=== PATIENT | female | born 1995 | race Caucasian/White ===

== ENCOUNTER 2024-10-15 17:28 | Inpatient (IN) | payer MEDICAID, SELFPAY ==
[2024-10-15 18:29] VITALS: BP 105/64; PULSE 114; RESP 16; TEMP 37; O2SAT 95; BMI 22.6
[2024-10-15 18:42] LABS: Basophils # (Auto) 0.1 Thou/mm3 (0.0-0.2); Basophils % (Auto) 0 % (0-2.5); Eosinophils % (Auto) 0 % (0-10); Hematocrit 40.3 % (36.0-46.0); Hemoglobin 13.3 g/dL (12.0-16.0); Immature Granulocytes % (Auto) 1 % (0-0); Lymphocytes # (Auto) 1.4 Thou/mm3 (1.0-4.8); Lymphocytes % (Auto) 5 % (10-50); Mean Corpuscular Hemoglobin 28.2 pg (25.0-35.0); Mean Corpuscular Volume 85 fL (80-100); Monocytes # (Auto) 0.9 Thou/mm3 (0.0-0.8); Monocytes % (Auto) 3 % (0-12); Neutrophils % (Auto) 91 % (37-80); Nucleated Red Blood Cell % 0 /100 WBC (0); Platelet Count 334 Thou/mm3 (140-440); Red Blood Count 4.72 Miln/mm3 (4.00-5.20); White Blood Count 29.8 Thou/mm3 (3.6-11.0)
--- NOTE | 2024-10-15 18:43 | PD.EDRME ---
Rapid Medical Screening Exam RME Arrival date/time: 10/15/24 17:28 Chief Complaint: Recheck/Abnormal Lab/Rx Time Seen by Provider: 10/15/24 18:44 Vital signs: Vital Signs Temperature 98.6 F 10/15/24 18:29 Pulse Rate 114 H 10/15/24 18:29 Respiratory Rate 16 10/15/24 18:29 Blood Pressure 105/64 10/15/24 18:29 Pulse Oximetry (%) 95 10/15/24 18:29 Oxygen Delivery Method Room Air 10/15/24 18:29 RME Narrative: 28-year-old female with history of diabetes coming in with feeling generally weak. The patient thinks her fingerstick is elevated. Heart rate is 114. The patient is able to ambulate and otherwise has no focal weakness. Labs are sent and an additional ER provider will evaluate this patient. At this time there is no bed to put her directly in the bed.
[2024-10-15 18:49] LABS: Beta Hydroxybutyrate > 6.4 mmol/L (<0.6)
[2024-10-15 19:13] LABS: Alanine Aminotransferase 85 U/L (10-49); Albumin, Serum 4.9 gm/dL (3.5-5.0); Albumin/Globulin Ratio 1.8 (1.2-2.2); Alkaline Phosphatase 238 U/L (46-116); Anion Gap 26 (7-16); Aspartate Amino Transferase 65 U/L (0-34); BUN/Creatinine Ratio 22 Ratio (12-20); Bilirubin,Total 1.4 mg/dL (0.3-1.2); Blood Urea Nitrogen 24 mg/dL (9-23); Calcium 9.9 mg/dL (8.3-10.6); Calcium (Corrected) 9.9 mg/dL (8.5-10.1); Carbon Dioxide 18.4 mMol/L (20.0-31.0); Chloride 91 mMol/L (98-107); Creatinine (Component) 1.1 mg/dL (0.6-1.3); Estimated Creatinine Clearance 71.9 mL/min (>60); Globulin 2.8 gm/dL (2.3-3.5); Osmolality,Calculated 301 (275-295); Potassium 3.8 mMol/L (3.4-5.1); Sodium 135 mMol/L (136-145); Total Protein 7.7 gm/dL (5.7-8.2); eGFR > 60 See Note
[2024-10-15 19:14] LABS: Glucose 584 mg/dL (74-106)
[2024-10-15 19:27] LABS: Base Excess, Venous -6 (-3-3); O2 Saturation, Venous 91 % (96-97); PCO2, Venous 31 mmHg (36-56); PO2, Venous 61 mmHg (15-58); pH, Venous 7.38 (7.33-7.66)
[2024-10-15 20:22] LABS: Collection Type, Urine Clean Catch; RBC,Urine 0 /hpf (0-3); WBC,Urine 0 /hpf (0-5)
[2024-10-15 20:40] LABS: Bilirubin,Urine Negative (Negative); Blood,Urine Negative (Negative); Clarity,Urine Clear (Clear/Hazy); Color,Urine Lt-Yellow (Lt Yel-Yel); Glucose, Urine 4+ (Negative); Ketones,Urine 4+ (Negative); Leukocyte Esterase,Urine Negative (Negative); Nitrite,Urine Negative (Negative); PH,Urine 5.5 (5.0-7.0); Protein,Urine Negative (Neg - Trace); Specific Gravity,Urine 1.027 (1.001-1.035); Squamous Epithelial Cell,Urine 2 /hpf (0-5); Urobilinogen,Urine Negative mg/dL (0.0-1.0)
[2024-10-15 22:34] VITALS: BP 136/105; PULSE 113; RESP 19; O2SAT 99
--- NOTE | 2024-10-15 22:39 | EDNOTE_ITS ---
ED General RME/HPI General Chief complaint: Abdominal Pain Stated complaint: I THINK I'M DKA ; VOMITING X YESTERDAY; ABD PAIN Time Seen by Provider: 10/15/24 18:44 Source: patient and family Arrival date/time: 10/15/24 17:28 Mode of arrival: ambulatory Limitations: no limitations RME / HPI RME / HPI narrative: DR. GAYTAN MAIN ED EVALUATION: 28-year-old female with history of type 1 diabetes on insulin who presents to ED via private auto coming in with feeling generally weak. The patient thinks her fingerstick is elevated. Patient reports that she has been out of her insulin for 1 week because she cannot get it filled at the pharmacy. She normally takes get it picked up and she has been on it for 2 days however she has been trouble controlling her blood sugars. She states her blood sugars are very high . The patient started having dry heaving and nausea today. Vomiting is associated with abdominal cramping. The patient denies fevers or diarrhea. Related Data Previous Rx's ?Medication ?Instructions ?Recorded metoclopramide HCl 10 mg tablet 10 mg PO Q6H PRN nausea and 05/26/23 (Reglan) vomiting #10 tabs lancets-blood glucose test #1 ea 09/23/23 strips-pen needles with gauze kit pantoprazole 40 mg tablet,delayed 40 mg PO QDAY PRN gastric reflux 09/23/23 release #30 tabs metoclopramide HCl 10 mg tablet 10 mg PO Q6H PRN nausea and 09/24/23 (Reglan) vomiting #14 tabs pantoprazole 40 mg tablet,delayed 40 mg PO QDAY #14 tabs 09/24/23 release (Protonix) insulin glargine 100 unit/mL (3 20 unit (0.2 mL) subcut QAM 30 10/18/23 mL) subcutaneous pen (Lantus days #6 mL Solostar U-100 Insulin) Allergies Allergy/AdvReac Type Severity Reaction Status Date / Time No Known Allergies Allergy Verified 10/15/24 17:30 Review of Systems Review of Systems Systems Reviewed: All systems reviewed, normal except as documented Constitutional Comments: Elevated blood sugars Gastrointestinal Comments: Nausea Dry heaving Vomiting Musculoskeletal Comments: Generalized body aches Endocrine Comments: Elevated blood sugar Past Medical History Past Medical History NEUROLOGIC: Negative Neurological Disorders CARDIAC: Negative Cardiac Disorders, Myocardial Infarction, Cardiac Arrhythmia, Atrial Fibrillation, Angina, Heart Murmur, Coronary Artery Disease, Atherosclerotic Heart Disease, Peripheral Vascular Disease, Hypercholesterolemia, Aneurysm, Congestive Heart Failure, Congenital Heart Disease, Valvular Heart Disease, Rheumatic Fever, Cardiomyopathy, Edema, Pericarditis, Cellulitis, Deep Vein Thrombosis, Hypertension, Hypotension or Varicose Veins RESPIRATORY: Negative Chronic Obstructive Pulmonary Disease (COPD) GASTROINTESTINAL: Positive Pancreatitis; Negative Gastrointestinal Disorders GENITOURINARY: Negative Genitourinary Disorders or Renal Disease REPRODUCTIVE: Positive Previous Pregnancies; Negative Endometriosis, Genital Herpes, Gonorrhea, Pelvic Inflammatory Disease, Syphilis or Uterine Prolapse MUSCULOSKELETAL: Negative Musculoskeletal Disorders ENT: Negative Cataracts, Glaucoma, Blind, Retinal Detachment, Macular Degeneration, Ear Infection, Deafness or Eye Prosthesis ENDOCRINE: Positive Endocrine Disorders and Diabetes Mellitus Type 1; Negative Diabetes Mellitus Type 2, Hypoglycemia, Creighton's Syndrome, Carson's Disease, Hyperthyroidism, Hypothyroidism, Parathyroid Disease, Pituitary Disease, Systemic Lupus Erythematosus, Syndrome of Inappropriate Antidiuretic Hormone (SIADH), Adrenal Disease or Graves' Disease HEMATOLOGIC: Negative Blood Disorders PSYCHO/SOCIAL: Positive Anxiety OTHER HISTORY: Negative Autoimmune Disease, Blood Transfusions, Blood Transfusion Reaction or Anesthesia Reactions Family History FAMILY HISTORY: Negative Family Neurologic Problems, Family Psychiatric Problems, Family Respiratory Disorders, Family Cardiac Disorders, Family Gastrointestinal Problems, Family Cancer, Family Surgery or Family Anesthesia Reaction Surgical History SURGICAL: Positive Section; Negative Pacemaker Social History SMOKING STATUS: Light (< 1 pack/day) SECOND HAND EXPOSURE: No SUBSTANCE USE: marijuana ED Exam Narrative Physical exam: Patient looks uncomfortable, dehydrated. She is standing, following all commands. Eye sockets are sunken in. No Robles's sign. General Limitations: Present no limitations General appearance: Present alert and in no apparent distress Head Head exam: Present atraumatic, normocephalic and normal inspection Eye Eye exam: Present normal appearance, PERRL and EOMI ENT ENT exam: Present normal exam, normal oropharynx, mucous membranes dry, TM's normal bilaterally and normal external ear exam Neck Neck exam: Present normal inspection and full ROM Chest Chest inspection: Present normal inspection and symmetric chest wall rise Respiratory Respiratory exam: Present normal lung sounds bilaterally Cardiovascular Cardiovascular exam: Present regular rate, normal rhythm and normal heart sounds Abdominal Exam Abdominal exam: Present normal bowel sounds Extremities Exam Extremities exam: Present normal inspection and full ROM Back Exam Back exam: Present normal inspection and full ROM Neurological Exam Neurological exam: Present alert, oriented X3 and CN II-XII intact Psychiatric Psychiatric exam: Present normal affect and normal mood; Absent depressed Skin Skin exam: Present warm, dry, intact and normal color Course Quality Measures none Orders Category Date Time Status CT Screening NOW Care 10/15/24 23:[address] abdomen pelvis w con Stat Exams 10/15/24 23:16 Taken Basic Metabolic Panel Stat Lab 10/16/24 02:24 Ordered Beta Hydroxybutyrate Stat Lab 10/15/24 18:14 Completed CBC Stat Lab 10/15/24 18:14 Completed Comprehensive Metabolic Panel Stat Lab 10/15/24 18:14 Completed Magnesium Stat Lab 10/16/24 02:24 Ordered Phosphorous Stat Lab 10/16/24 02:24 Ordered Urinalysis Stat Lab 10/15/24 20:05 Completed Urine Culture Stat Lab 10/15/24 17:53 Received VBG [Venous Blood Gas] Stat Lab 10/15/24 19:11 Completed Insulin Reg 100 Units/100 ml [Myxredlin] Med 10/16/24 00:55 Active 100 unit in 100 ml IV 0.1 unit/kg/hr Ondansetron Inj [Zofran Inj] Med 10/15/24 22:41 Discontinued 4 mg IV X1 ONE Sodium Chloride 0.9% 1000 ml [Ns] 1,000 ml Med 10/15/24 22:42 Discontinued IV 999 mls/hr Sodium Chloride 0.9% 1000 ml [Ns] 1,000 ml Med 10/15/24 23:22 Discontinued IV 999 mls/hr Sodium Chloride 0.9% 500 ml [Ns] 500 ml Med 10/16/24 00:55 Discontinued IV 999 mls/hr Vital Signs Vital signs: Vital Signs Temperature 98.6 F 10/15/24 18:29 Pulse Rate 114 H 10/15/24 18:29 Respiratory Rate 16 10/15/24 18:29 Blood Pressure 105/64 10/15/24 18:29 Pulse Oximetry (%) 95 10/15/24 18:29 Oxygen Delivery Method Room Air 10/15/24 18:29 [facility] Patient data External records reviewed:: [facility] previous records Clinical information provided by:: patient Social determinants that could affect healthcare access:: none Patient has the following chronic illnesses:: IDDM1 How is presenting disease/condition affected by chronic disease/condition?: e xacerbated by Evaluation data The following diagnostics were reviewed and interpreted by me:: lab results and radiology exam(s) Lab and/or radiology exams considered but not ordered:: None Interpretation Summary: I personally reviewed the radiology data and agree with the radiologist's interpretation. CT scan of the abdomen and pelvis with intravenous contrast (axial sections with sagittal and coronal reformats) October 16, 2024 0016 hours. 3D reconstructed images were also provided. Clinical History: DKA, white count 29,000 Comparison: Compared with the prior CT AP study dated June 12, 2020. Findings: Mild hepatomegaly with mild fatty infiltration of the liver is noted. The left kidney is malrotated. No hydroureteronephrosis. The gallbladder, pancreas, spleen, adrenals and right kidney are unremarkable. The small bowel loops are underdistended. The cecum is low-lying in the pelvis. The appendix is within normal limits to the extent visualized (coronal images 47-48/128, series 4). There is thickening versus underdistention of the colon. No evidence of bowel obstruction. No evidence of abdominal aortic aneurysm. No significant mesenteric or retroperitoneal lymphadenopathy. The urinary bladder is mildly distended. The uterus is unremarkable. Follicles are seen in the ovaries bilaterally. There is no free fluid, free air or abscess. The osseous structures are unremarkable. The lung bases are clear. There is mild wall thickening of the distal esophagus/gastroesophageal junction; possibility of reflux esophagitis cannot be excluded. Please note that evaluation of bowel loops is limited due to absence of oral contrast. Impression: 1. Thickening versus underdistention of the colon; possibility of mild colitis cannot be excluded. 2. No evidence of intraabdominal fluid collection or abscess. 3. Mild wall thickening of the distal esophagus/gastroesophageal junction; possibility of reflux esophagitis cannot be excluded. 4. Other findings as described above. Suggest clinical correlation and follow up accordingly. Report Electronically Signed By: Charlie Sanchez 10/16/2024 1:08:35 AM [EST] Medications Medications considered but not ordered:: None Medication administrations:: Medication Administration History Insulin Human Regular (Myxredlin) 100 unit in 100 mls @ 6.35 mls/hr IV .[id number] PRN; Protocol PRN Reason: PER PROTOCOL Stop: 11/15/24 00:54 Discontinued Medications Sodium Chloride (Ns) 1,000 mls @ 999 mls/hr IV .Q1H1M ONE Stop: 10/15/24 23:42 Last Infusion: 10/16/24 00:05 Dose: Infused Documented By: Admin: 10/15/24 23:21 Dose: 2,000 mls/hr Documented By: Infusion: 10/15/24 23:21 Dose: Infused Documented By: Admin: 10/15/24 22:49 Dose: 999 mls/hr Documented By: TC Sodium Chloride (Ns) 1,000 mls @ 999 mls/hr IV .Q1H1M ONE Stop: 10/16/24 00:22 Last Admin: 10/16/24 00:05 Dose: Not Given Documented By: TC Non-Admin Reason: Duplicate Medication on eMAR Sodium Chloride (Ns) 500 mls @ 999 mls/hr IV .Q31M ONE Stop: 10/16/24 01:25 Last Infusion: 10/16/24 02:17 Dose: Infused Documented By: Admin: 10/16/24 01:49 Dose: 999 mls/hr Documented By: TC Ondansetron HCl (Ondansetron Inj 2 Mg/Ml Inj 2 Ml) 4 mg IV X1 ONE; Protocol Stop: 10/15/24 22:42 Last Admin: 10/15/24 22:49 Dose: 4 mg Documented By: TC As above Consultations Consultation(s) initiated? (list below): Yes Consultation #1 (Physician, Specialty, Details): Hospitalist Resident ICU made aware of the patient?s HPI, PMHx, lab and/or radiology results. Treatment plan was discussed. Will admit for further evaluation and management. Accepts patient for admission. Time: 02:37 Diagnosis Differential Diagnosis ED Complaint MDM: See MDM Most likely diagnosis given after review of the tests above:: DM type 1 (diabetes mellitus, type 1), Diabetic ketosis, Tachycardia Admission Indicated Admission indicated?: indicated Admission Request Was there a request for admission?: Yes Admission Attestation Admission request attestation: Discussed case with [] from Hospitalist service regarding admission. Discussed patients ED course, exam findings, labs, and radiology results. The Hospitalist [agrees,declines] to accept the patient for admission. Disposition Plan Disposition Plan: Admit Medical Decision Making MDM Narrative MDM Narrative: Differential diagnoses include DKA, non-compliance, hyperglycemia, leukocytosis from the vomiting, COVID, electrolyte abnormalities, dehydration ? Scribe Attestation: I, Jordan Medina, am scribing for and in the presence of Dr. Cash. Provider Notation: Although this document has been carefully reviewed, there may still be some phonetic and other typographical errors. These errors are purely grammatical due to imperfections in the software program and should not be construed in any way to compromise the substance of the patient's medical care during this visit. Differential Diagnosis Differential Diagnosis: See [facility] Medical Records Medical records reviewed: Yes I reviewed the patient's medical records. Lab Data Lab results reviewed: Yes I reviewed the patient's lab results. 10/15/24 18:14 10/15/24 18:14 Labs: Lab Results 10/15/24 10/15/24 10/15/24 Range/Units 18:14 19:11 20:05 WBC 29.8 H (3.6-11.0) Thou/mm3 RBC 4.72 (4.00-5.20) Miln/mm3 Hgb 13.3 (12.0-16.0) g/dL Hct 40.3 (36.0-46.0) % MCV 85 (80-100) fL MCH 28.2 (25.0-35.0) pg MCHC 33.0 (31.0-37.0) g/dl RDW Std Deviation 41.0 (36.4-46.3) fL Plt Count 334 (140-440) Thou/mm3 Neut % (Auto) 91 H (37-80) % Lymph % (Auto) 5 L (10-50) % [place] % (Auto) 3 (0-12) % Eos % (Auto) 0 (0-10) % Baso % (Auto) 0 (0-2.5) % Neut # (Auto) 27.0 H (1.8-7.7) Thou/mm3 Lymph # (Auto) 1.4 (1.0-4.8) Thou/mm3 [place] # (Auto) 0.9 H (0.0-0.8) Thou/mm3 Eos # (Auto) 0.0 (0.0-0.5) Thou/mm3 Baso # (Auto) 0.1 (0.0-0.2) Thou/mm3 Immature Gran # (Auto) 0.30 H (0.00-0.00) Thou/mm3 Absolute Nucleated RBC 0.00 (0.00-0.00) Thou/mm3 Immature Gran % 1 H (0-0) % Nucleated RBC % 0 (0) /100 WBC VBG pH 7.38 (7.33-7.66) VBG pCO2 31 L (36-56) mmHg VBG pO2 61 H (15-58) mmHg VBG O2 Sat ([place]) 91 L (96-97) % VBG Base Excess -6 L (-3-3) Sodium 135 L (136-145) mMol/L Potassium 3.8 (3.4-5.1) mMol/L Chloride 91 L (98-107) mMol/L Carbon Dioxide 18.4 L (20.0-31.0) mMol/L Anion Gap 26 H (7-16) BUN 24 H (9-23) mg/dL Creatinine 1.1 (0.6-1.3) mg/dL Estim Creat Clear Calc 71.9 (>60) mL/min eGFR > 60 (60 - ) See Note BUN/Creatinine Ratio 22 H (12-20) Ratio Glucose 584 H* (74-106) mg/dL Calculated Osmolality 301 H (275-295) Calcium 9.9 (8.3-10.6) mg/dL Corrected Calcium 9.9 (8.5-10.1) mg/dL Total Bilirubin 1.4 H (0.3-1.2) mg/dL AST 65 H (0-34) U/L ALT 85 H (10-49) U/L Alkaline Phosphatase 238 H (46-116) U/L Total Protein 7.7 (5.7-8.2) gm/dL Albumin 4.9 (3.5-5.0) gm/dL Globulin 2.8 (2.3-3.5) gm/dL Albumin/Globulin Ratio 1.8 (1.2-2.2) Beta-Hydroxybutyrate/Acetoacetate > 6.4 H (<0.6) mmol/L Ur Collection Type Clean Catch Urine Color Lt-Yellow (Lt Yel-Yel) Urine Clarity Clear (Clear/Hazy) Urine pH 5.5 (5.0-7.0) Ur Specific [place] 1.027 (1.001-1.035) Urine Protein Negative (Neg - Trace) Urine Glucose (UA) 4+ A (Negative) Urine Ketones 4+ A (Negative) Urine Blood Negative (Negative) Urine Nitrite Negative (Negative) Urine Bilirubin Negative (Negative) Urine Urobilinogen (Auto) Negative (0.0-1.0) mg/dL Ur Leukocyte Esterase Negative (Negative) Urine RBC 0 (0-3) /hpf Urine WBC 0 (0-5) /hpf Ur Squamous Epith Cells 2 (0-5) /hpf Urine Bacteria None (None) Radiology Data Radiology results reviewed: Yes I reviewed the patient's radiology results. Critical Care Time Critical Care Time Critical Care Time: Yes Total Critical Care Time (min.): 60 Attestation: The high probability of sudden, clinically significant deterioration in the patient?s condition required the highest level of my preparedness to intervene urgently. The services I provided to this patient were to treat and/or prevent clinically significant deterioration. Services included the following: chart data review, reviewing nursing notes and/or old charts, documentation time, outreach consultant collaboration regarding findings and treatment options, medication orders and management, direct patient care, vital sign assessments and ordering, interpreting and reviewing diagnostic studies and lab tests. Aggregate critical care time includes only time during which I was engaged in work directly related to the patient?s care, as described above, whether at bedside or elsewhere in the Emergency Department. It did not include time spent performing other reported procedures or the services of residents, students, nurses or physician assistants. Discharge Plan Plan Patient Disposition: Admit Acute Care w/in Hospital Patient condition on transfer: Stable Prescriptions/Referrals Prescriptions/Med Rec: No Action (DME) lancet-gluc yielp-nbbkrb-ycfkr Kit See Rx Instructions .Route Qty: 1 1RF Rx Instructions: As directed pantoprazole 40 mg tablet,delayed release (DR/EC) 40 mg PO QDAY PRN (Reason: gastric reflux) Qty: 30 0RF metoclopramide HCl [Reglan] 10 mg tablet 10 mg PO Q6H PRN (Reason: nausea and vomiting) Qty: 14 0RF pantoprazole [Protonix] 40 mg tablet,delayed release (DR/EC) 40 mg PO QDAY Qty: 14 0RF insulin glargine [Lantus Solostar U-100 Insulin] 100 unit/mL (3 mL) insulin pen 20 unit subcut QAM 30 Days Qty: 6 1RF metoclopramide HCl [Reglan] 10 mg tablet 10 mg PO Q6H PRN (Reason: nausea and vomiting) Qty: 10 0RF Referrals: Chance Godinez PA-C [Primary Care Provider] - In 1 week Problem List Clinical Impression: DM type 1 (diabetes mellitus, type 1), Diabetic ketosis, Tachycardia Patient/Caregiver Discharge Instructions Print Language: Hebrew Stand Alone Forms: [facility] Award Info., Patient Portal Info Letter
[2024-10-15] MEDS: SODIUM CHLORIDE 0.9% 1000 ML 1,000 ML 999 ML IV (22:49)
[2024-10-15] MEDS: ONDANSETRON INJ 2 MG/ML INJ 2 ML 4 MG IV (22:49)
[2024-10-15 23:15] VITALS: BP 114/64; PULSE 105; RESP 18; O2SAT 97
--- NOTE | 2024-10-15 23:16 | XR_ITS ---
Examination: CT abdomen with intravenous contrast CT pelvis with intravenous contrast 2-D coronal reconstructions 2-D sagittal reconstructions Date and time of exam:October 16, 2024 0016 hrs. Comparison 06/12/2020 Indications: Onset vomiting abdominal pain beginning yesterday, with leukocytosis. CTDI: vol (mGy) 5.82 DLP: (mGycm) 296 Technique: Multiple axial sections of the abdomen and pelvis have been obtained. 64 slice high-resolution scanner used. 3 mm axial sections have been obtained, post intravenous injection 60 cc [id number] 2-D sagittal, coronal reconstructions obtained. Low dose protocols were performed. One or more of the following dose reduction techniques were used; automated exposure control, adjustment of the mA and/or KV according to patient size, use of iterative reconstruction technique. Findings: Minor wall thickening of the distal esophagus Diffuse fatty infiltration throughout the liver no focal liver or splenic lesions Contracted gallbladder No pancreatic mass No renal or ureteral calculi, no hydronephrosis Aorta normal size Normal appendix No bowel obstruction No pelvic mass Distended urinary bladder Impression: Consider reflux esophagitis No acute process in the abdomen or pelvis
[2024-10-15] MEDS: SODIUM CHLORIDE 0.9% 1000 ML 1,000 ML 2000 ML IV (23:21)
[2024-10-15 23:30] VITALS: BP 113/65; PULSE 107; RESP 19; O2SAT 96
[2024-10-15 23:45] VITALS: BP 111/59; PULSE 108; RESP 18; O2SAT 97
[2024-10-16] VITALS (65 sets, daily range): BP systolic 87–153; BP diastolic 47–101; PULSE 92–135; RESP 14–40; TEMP 36.3–38; O2SAT 92–100; BMI 20.7
--- NOTE | 2024-10-16 01:09 | PRELIM_ITS ---
CT scan of the abdomen and pelvis with intravenous contrast (axial sections with sagittal and coronal reformats) October 16, 2024 0016 hours. 3D reconstructed images were also provided. Clinical History : DKA, white count 29,000Comparison: Compared with the prior CT AP study dated June 12, 2020.Find ings:Mild hepatomegaly with mild fatty infiltration of the liver is noted. The left kidney is malrota thierry. No hydroureteronephrosis. The gallbladder, pancreas, spleen, adrenals and right kidney are unrem arkable.The small bowel loops are underdistended. The cecum is low-lying in the pelvis. The appendix is within normal limits to the extent visualized (coronal images 47-48/128, series 4). There is thick ening versus underdistention of the colon. No evidence of bowel obstruction. No evidence of abdominal aortic aneurysm. No significant mesenteric or retroperitoneal lymphadenopathy. The urinary bladder i s mildly distended. The uterus is unremarkable. Follicles are seen in the ovaries bilaterally. There is no free fluid, free air or abscess. The osseous structures are unremarkable. The lung bases are c lear. There is mild wall thickening of the distal esophagus/gastroesophageal junction; possibility of reflux esophagitis cannot be excluded.Please note that evaluation of bowel loops is limited due to a bsence of oral contrast. Impression:1. Thickening versus underdistention of the colon; possibility of mild colitis cannot be excluded. 2. No evidence of intraabdominal fluid collection or abscess. 3. Mi ld wall thickening of the distal esophagus/gastroesophageal junction; possibility of reflux esophagit is cannot be excluded. 4. Other findings as described above. Suggest clinical correlation and follow up accordingly. Report Electronically Signed By: Charlie Sanchez 10/16/2024 1:08:35 AM [EST]
[2024-10-16] MEDS: SODIUM CHLORIDE 0.9% 500 ML 500 ML 999 ML IV (01:49)
--- NOTE | 2024-10-16 02:52 | EKG_ITS ---
[facility] Test Date: 2024-10-16 Pat Name: CLARENCE WILKES Department: Room: - Gender: Female [employer] Development: : 1995 Requested By: Lorenzo Marr Order Number: [id number] Reading MD: Lorenzo Marr Measurements Intervals [place] Rate: 106 P: 107 CO: 124 QRS: 107 QRSD: 85 T: 134 QT: 367 QTc: 489 Interpretive Statements SINUS TACHYCARDIA ARM LEADS REVERSED [INVERTED P AND QRS IN I] ABNORMAL RHYTHM ECG Compared to ECG 09/20/2023 23:12:47 Sinus rhythm no longer present Short CO interval no longer present /store/S0/[id number].pdf
[2024-10-16] MEDS: PANTOPRAZOLE INJ 40 MG VIAL IV ×3 (03:05→20:22)
--- NOTE | 2024-10-16 03:06 | PC.RT ---
automation technician made aware of EKG ordered.
--- NOTE | 2024-10-16 03:07 | ESHP_ITS ---
Documentation for date of: 10/16/24 HPI History of Present Illness Chief complaint: DKA History of present illness: Ms. Dawson Daniels is a 28-year-old lady with a past medical history of type 1 diabetes with multiple admissions to the ICU for DKA who presented to the ED for a 1 week history of vomiting and feeling nauseated. Patient reports that approximately 1 week prior to admission she had ran out of her inuslin. and began to experience progressively worsening symptoms of nausea, non-bloody vomiting and abdominal pain. She also reported associated symptoms of chills and decreased PO intake. Due to her symptoms worsening, the patient presented to the ED on 10/16/2024 ED course: In the ED, patient was found to be in DKA with elevated glucose of and beta hydroxybutyric acid >6.4, bicarb was < 10. CBC revealed significant leukocytosis of 29.8. ABG ABG 7.38/pCO2 31/HCO3 10 consistent with anion gap metabolic acidosis in the setting of diabetic ketoacidosis. Urinalysis 4+ ketones and 4+ glucose. Chest x-ray was negative. CT C/A/P was read as thickening versus underdistention of the colon; possibility of mild colitis cannot be excluded. No evidence of intraabdominal fluid collection or abscess. Mild wall thickening of the distal esophagus/gastoesophageal junction suspicious for reflux esophagitis. Patient was admitted to the ICU for treatment and management of diabetic ketoacidosis requiring insulin gtt. Review of Systems Review of Systems Systems Reviewed: All systems reviewed, normal except as documented Past Medical History Past Medical History Comments PMH COMMENT: PMHx: , IDDM1 (Sep 2023 A1c 10.3) on Dexcom CGM & recurrent hospitalizations for DKA, ?pancreatitis, fatty liver PSHx: C-sections FHx: Non-contributory Social: Lives with family/children. Tobacco/cannabis smoking. Medically nonadherent Exam Vital Signs Temp Pulse Resp BP Pulse Ox O2 Del Method 98.6 F 119 H 26 H 116/63 97 Room Air 10/15/24 18:29 10/16/24 03:06 10/16/24 02:45 10/16/24 02:45 10/16/24 02:45 10/15/24 22:34 Narrative Exam General: Not in any visible or apparent acute distress, sick and weak appearing, alert but somnolent HEENT: NC/AT, PERRL, EOMI, good conjugate gaze, moist mucous membranes, oropharynx clear, trachea appears midline, no gross LAD Neck: Supple, No masses, No JVD, normal range of motion CVS: S1S2 Regular rate and rhythm, No murmurs, rubs or gallops Lungs: Normal respiratory effort, no wheezing rhonchi or rales, CTAB Abd: Soft, non-distended, diffuse pain to palpation Ext: No edema, warm well perfused Skin: Intact, no rashes, no lesions, no erythema Neuro: AOx3, no gross focal neurological deficits Results: Labs 10/18/24 06:15 10/18/24 06:15 Labs: Short CBC 10/15/24 Range/Units 18:14 WBC 29.8 H (3.6-11.0) Thou/mm3 Hgb 13.3 (12.0-16.0) g/dL Hct 40.3 (36.0-46.0) % Plt Count 334 (140-440) Thou/mm3 BMP 10/15/24 18:14 Sodium 135 L Potassium 3.8 Chloride 91 L Carbon Dioxide 18.4 L BUN 24 H Creatinine 1.1 Glucose 584 H* Calcium 9.9 Liver Function 10/15/24 Range/Units 18:14 Total Bilirubin 1.4 H (0.3-1.2) mg/dL AST 65 H (0-34) U/L ALT 85 H (10-49) U/L Alkaline Phosphatase 238 H (46-116) U/L Albumin 4.9 (3.5-5.0) gm/dL Urine 10/15/24 Range/Units 20:05 Urine Color Lt-Yellow (Lt Yel-Yel) Urine Clarity Clear (Clear/Hazy) Urine pH 5.5 (5.0-7.0) Ur Specific [place] 1.027 (1.001-1.035) Urine Protein Negative (Neg - Trace) Urine Glucose (UA) 4+ A (Negative) ABG Interpretation ABG results: 10/15/24 19:11 VBG pH 7.38 VBG pCO2 31 L VBG pO2 61 H VBG Base Excess -6 L Quality Measures Quality Measures none Medications Home Medications and Allergies Allergies Allergy/AdvReac Type Severity Reaction Status Date / Time No Known Allergies Allergy Verified 10/15/24 17:30 Visit Medications Acetaminophen (Acetaminophen 325 Mg Tablet) 1,000 mg PO Q6H PRN PRN Reason: Fever >101.5 Stop: 11/15/24 02:56 Acetaminophen (Acetaminophen 325 Mg Tablet) 1,000 mg PO Q6H PRN PRN Reason: PAIN SCALE 1-3 (mild Stop: 11/15/24 02:56 Dextrose (Dextrose 50%-Water Inj 50 Ml Syringe) 25 ml IV [id number] PRN PRN Reason: Blood Sugar - Low Enoxaparin Sodium (Enoxaparin Sod Inj 40 Mg/0.4 Ml Syringe) 40 mg SC QDAY SULTANA Stop: 10/30/24 08:59 Potassium Chloride (Kcl Ivpb) 10 meq in 100 mls @ 100 mls/hr IV .Q1H PRN PRN Reason: IF POTASSIUM LESS THAN 3.3 Stop: 11/15/24 02:51 Magnesium Sulfate (Magnesium Sulfate Ivpb) 2 gm in 50 mls @ 25 mls/hr IV .Q2H PRN PRN Reason: PER DKA PROTOCOL Stop: 11/15/24 02:51 Insulin Human Regular 100 unit (/ IV Miscellaneous Supplies) 100 mls @ 6.35 mls/hr IV .[id number] PRN; Protocol PRN Reason: PER PROTOCOL Stop: 11/15/24 02:51 Dextrose/Lactated Ringer's (D5-Lr) 1,000 mls @ 250 mls/hr IV .Q4H PRN PRN Reason: PER PROTOCOL Stop: 11/15/24 02:51 Lactated Ringer's (Lactated Ringers) 1,000 mls @ 250 mls/hr IV .Q4H PRN PRN Reason: PER PROTOCOL Stop: 10/17/24 02:51 Potassium Chloride 20 meq/ (Lactated Ringer's) 1,010 mls @ 250 mls/hr IV .Q4H3M PRN PRN Reason: K LEVEL 3.3 TO 5.3mM/L Stop: 11/15/24 02:51 Potassium Chloride 40 meq/ (Lactated Ringer's) 1,020 mls @ 250 mls/hr IV .Q4H5M PRN PRN Reason: K LEVEL < 3.3 mM/L Stop: 11/15/24 02:51 Potassium Chloride 40 meq/ (Dextrose/Lactated Ringer's) 1,020 mls @ 250 mls/hr IV .Q4H5M PRN PRN Reason: K LEVEL < 3.3mM/L Stop: 11/15/24 02:51 Potassium Cl/Dextrose/Lact Ringer's (Kcl 20 Meq/L In D5-Lr) 20 meq in 1,000 mls @ 250 mls/hr IV .Q4H PRN PRN Reason: K LEVEL 3.3 TO 5.3 mM/L Stop: 11/15/24 02:51 Potassium Chloride (Kcl Ivpb) 10 meq in 100 mls @ 50 mls/hr IV PRN PRN PRN Reason: K LEVEL 3.3 to 5.3 & BG > 200 Stop: 11/15/24 02:51 Potassium Phosphate (Pot Phos 15 Mmol In Ns 250 Ml) 15 mmol in 250 mls @ 62.5 mls/hr IV PRN PRN PRN Reason: Phosphate <= 1mg/dL Stop: 11/15/24 02:51 Sodium Phosphate 15 mmol/ (Sodium Chloride) 255 mls @ 62.5 mls/hr IV .Q4H5M PRN PRN Reason: Phosphate <= 1mg/dL and K> than 5.3 Stop: 11/15/24 02:51 Ondansetron HCl (Ondansetron Inj 2 Mg/Ml Inj 2 Ml) 4 mg IV Q6H PRN; Protocol PRN Reason: NAUSEA OR VOMITING Stop: 11/15/24 02:56 Sodium Bicarbonate (Sodium Bicarb Inj 8.4% Syr 50 Ml Syringe) 50 ml IV PRN PRN PRN Reason: For ph <= to 7.0 Stop: 11/15/24 02:51 Discontinued Medications Sodium Chloride (Ns) 1,000 mls @ 999 mls/hr IV .Q1H1M ONE Stop: 10/15/24 23:42 Last Infusion: 10/16/24 00:05 Dose: Infused Sodium Chloride (Ns) 1,000 mls @ 999 mls/hr IV .Q1H1M ONE Stop: 10/16/24 00:22 Last Admin: 10/16/24 00:05 Dose: Not Given Sodium Chloride (Ns) 500 mls @ 999 mls/hr IV .Q31M ONE Stop: 10/16/24 01:25 Last Infusion: 10/16/24 02:17 Dose: Infused Insulin Human Regular (Myxredlin) 100 unit in 100 mls @ 6.35 mls/hr IV .[id number] PRN; Protocol PRN Reason: PER PROTOCOL Stop: 11/15/24 00:54 Ondansetron HCl (Ondansetron Inj 2 Mg/Ml Inj 2 Ml) 4 mg IV X1 ONE; Protocol Stop: 10/15/24 22:42 Last Admin: 10/15/24 22:49 Dose: 4 mg Pantoprazole Sodium (Pantoprazole Inj 40 Mg Vial) 40 mg IV X1 ONE Stop: 10/16/24 03:03 Last Admin: 10/16/24 03:05 Dose: 40 mg Assessment & Plan Plan Assessment:28 year old lady with type 1 IDDM & recurrent hospitalizations for DKA who presented to the ED from home on 10/16/2024 due to symptoms of nasuea, vomiting and generalized weakness associated with chills and SOB. Patient reports running out of insulin approximately 1 week prior o presentation after which her symptoms started. Patient was found to be in DKA and was subsequently admitted for treatment and managament. Plan:? Neurological Stable Cardiology Tachycardia most likely in the setting of an acidotic state. Will resolve once DKA resolves Pulmonary Stable, non-tachypnic, saturating well in ambient air Gastrointestinal Complaints of Nausea, vomiting, and abdominal pain in the setting of DKA Plan: -Zofran as needed for N/V -GI PPX: 40 mg Pantoprazole QD -Keep NPO Renal/Genitourinary Anion Gap Metabolic acidosis: Anion Gap 28, Beta Hydroxybutyrate> 6.4, HCO3 <10 Blood Gas:? 7.38/pCO2 31/HCO3 10 YUMIKO- Creatinine: 1.6 most likely prerenal due to dehydration. Continue IV fluids. Hyperphosphatemia: Phosphate 5.6 in setting of DKA Endocrine Diabetic Ketoacidosis: Mostly likely due to medical noncompliance. Blood Glucose: 518, Anion Gap Metabolic acidosis: Anion Gap 19, Beta Hydroxybutyrate> 6.4, HCO3 <10 -Patient was started on insulin drip -Patient started on IV fluids: Normal saline? at 150 cc/hr -Renal panel Q4H Hematology Leuckocytosis-? WBC: 29.8, most likely reactive secondary to DKA state Infectious Disease No signs of active infection, afebrile Skin - no acute issues, no evidence of skin breakdown Health Maintenance Fluids Electrolytes Nutrition: Normal Saline 150 cc/hr Code Status: Full Code DVT Prophylaxis: None GI Prophylaxis: Pantoprazole Disposition:? Patient requires inpatient ICU admission for DKA requiring IV fluids and IV insulin. Patient's case was discussed with attending physician Dr. Srikanth Marr M.D. PGY-3 Attending Provider Attestation/Addendum Patient seen and examined with PGY-3 Dr Marr. I reviewed all documents, labs, orders, and plan of care with the resident and agree with the assessment and plan as dictated above. In short, this is a 28 yo IDDM and multiple previous episodes of DKA patient who presented to the ED with several days of nausea, vomiting and abdominal pain. Patient reports she recently ran out of her insulin and had not been able to followup with PCP to have it filled. She presents with high anion gap acidosis and significantly elevated BS c/w DKA and will be admitted to ICU for insulin drip and DKA protocol. Kennedy Duke MD
[2024-10-16 03:30] LABS: Anion Gap 28 (7-16); BUN/Creatinine Ratio 28 Ratio (12-20); Blood Urea Nitrogen 28 mg/dL (9-23); Calcium 8.5 mg/dL (8.3-10.6); Chloride 100 mMol/L (98-107); Estimated Creatinine Clearance 77.8 mL/min (>60); Osmolality,Calculated 304 (275-295); Phosphorous 5.6 mg/dL (2.4-5.1); Potassium 4.8 mMol/L (3.4-5.1); Sodium 138 mMol/L (136-145); eGFR > 60 See Note
[2024-10-16] MEDS: INSULIN REG 100 UNITS/100 ML 100 UNIT/100 ML BAG 5.829 UNIT IV (03:33)
[2024-10-16 03:36] LABS: Carbon Dioxide < 10.0 mMol/L (20.0-31.0)
[2024-10-16 03:37] LABS: Glucose 518 mg/dL (74-106)
[2024-10-16] MEDS: POTASSIUM CHL 10 mEq IVPB 10 MEQ/100 ML BAG 50 MEQ IV ×2 (03:52→05:24)
[2024-10-16] MEDS: RINGERS LACTATED 1000 ML 1,000 ML 250 ML IV (03:54)
--- NOTE | 2024-10-16 07:19 | PC.NURSE ---
Received report from Joey Boone RN. Per RN LR fluids running per protocol but K-rider has infused. RN will not hang additional K-rider and will transfer pt to ICU. cargo and container inspector karolina ellis and MD ellis.
[2024-10-16 07:20] LABS: Lactate (Lactic Acid) 1.2 mMol/L (0.4-2.0)
--- NOTE | 2024-10-16 07:43 | PC.NURSE ---
previous shift RN gave report to CLIENT APPLICATION SUPPORT ENGINEER, bs checked prior to transfer by this RN.
[2024-10-16 07:46] LABS: Glucose Estimated Average 301 mg/dL (80-131); Hemoglobin A1C 12.1 % Hgb (4.8-6.0)
[2024-10-16 07:52] LABS: Albumin, Serum 4.1 gm/dL (3.5-5.0); Anion Gap 20 (7-16); BUN/Creatinine Ratio 29 Ratio (12-20); Blood Urea Nitrogen 26 mg/dL (9-23); Calcium 8.6 mg/dL (8.3-10.6); Calcium (Corrected) 8.6 mg/dL (8.5-10.1); Cardiac Risk Estimate 2.7 RATIO (3.7-5.6); Chloride 108 mMol/L (98-107); Cholesterol 173 mg/dL (132-200); Creatinine (Component) 0.9 mg/dL (0.6-1.3); Estimated Creatinine Clearance 86.4 mL/min (>60); Glucose 288 mg/dL (74-106); HDL Cholesterol 65 mg/dL (40-60); LDL Cholesterol,Calculated 86 mg/dL (0-130); Magnesium 1.9 mg/dL (1.6-2.6); Osmolality,Calculated 295 (275-295); Phosphorous 2.4 mg/dL (2.4-5.1); Potassium 3.8 mMol/L (3.4-5.1); Sodium 140 mMol/L (136-145); Triglycerides 108 mg/dL (30-150); eGFR > 60 See Note
[2024-10-16 07:53] LABS: Carbon Dioxide 12.3 mMol/L (20.0-31.0)
[2024-10-16] MEDS: POT CHL ADDITIVE 20 MEQ in RINGERS LACTATED 1000 ML 1,000 ML 250 MEQ IV (07:55)
[2024-10-16] MEDS: ENOXAPARIN SOD INJ 40 MG/0.4 ML SYRINGE SC (08:53)
[2024-10-16] MEDS: KCL 20 mEq/L in D5-LR 20 MEQ/1,000 ML BAG 250 MEQ IV ×2 (09:05→14:05)
[2024-10-16] MEDS: ACETAMINOPHEN 325 MG TABLET PO (09:25)
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
[2024-10-16 11:35] LABS: Lactate (Lactic Acid) 1.2 mMol/L (0.4-2.0)
[2024-10-16 11:56] LABS: Albumin, Serum 3.9 gm/dL (3.5-5.0); Anion Gap 11 (7-16); BUN/Creatinine Ratio 29 Ratio (12-20); Blood Urea Nitrogen 23 mg/dL (9-23); Calcium 8.7 mg/dL (8.3-10.6); Calcium (Corrected) 8.8 mg/dL (8.5-10.1); Carbon Dioxide 20.7 mMol/L (20.0-31.0); Chloride 110 mMol/L (98-107); Creatinine (Component) 0.8 mg/dL (0.6-1.3); Glucose 150 mg/dL (74-106); Magnesium 1.7 mg/dL (1.6-2.6); Osmolality,Calculated 289 (275-295); Phosphorous 1.2 mg/dL (2.4-5.1); Sodium 142 mMol/L (136-145); eGFR > 60 See Note
[2024-10-16] MEDS: Magnesium Sulfate 2 GM Ivpb 2 GM/50 ML BAG IV (12:30)
[2024-10-16] MEDS: SUCRALFATE SUSP 1 GM/10 ML UDC PO ×2 (13:02→21:08)
[2024-10-16 15:26] LABS: Lactate (Lactic Acid) 0.9 mMol/L (0.4-2.0)
[2024-10-16 15:53] LABS: Albumin, Serum 3.7 gm/dL (3.5-5.0); Anion Gap 8 (7-16); BUN/Creatinine Ratio 25 Ratio (12-20); Blood Urea Nitrogen 20 mg/dL (9-23); Calcium 8.6 mg/dL (8.3-10.6); Calcium (Corrected) 8.8 mg/dL (8.5-10.1); Carbon Dioxide 22.6 mMol/L (20.0-31.0); Chloride 111 mMol/L (98-107); Creatinine (Component) 0.8 mg/dL (0.6-1.3); Glucose 164 mg/dL (74-106); Magnesium 2.1 mg/dL (1.6-2.6); Osmolality,Calculated 289 (275-295); Phosphorous 1.1 mg/dL (2.4-5.1); Potassium 4.2 mMol/L (3.4-5.1); Sodium 142 mMol/L (136-145); eGFR > 60 See Note
[2024-10-16] MEDS: INSULIN GLARGINE (Lantus) 5 UNIT/0.05 ML (PER 5 UNITS) 20 UNIT SC (17:12)
[2024-10-16] MEDS: NAPH,KPH MBDB 1 PACKET (1.5 GM) PO (17:12)
--- NOTE | 2024-10-16 17:46 | PD.RESEVENT ---
Documentation for date of: 10/16/24 Patient admitted this morning for DKA in the setting of insulin noncompliance at home. No episodes of hemoptysis today. Patient continue to improve today overall appetite was increasing nausea resolving, her anion gap closed x 2, she was transitioned to subcutaneous insulin diet order placed. Replacing electrolytes prior to possible downgrade this evening/tomorrow.
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
[2024-10-16] MEDS: POTASSIUM PHOS 22.5 MMOL in SODIUM CHLORIDE 0.9% 500 ML 500 ML 82.778 MMOL IV (19:10)
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
[2024-10-16 19:26] LABS: Lactate (Lactic Acid) 0.8 mMol/L (0.4-2.0)
[2024-10-16 19:46] LABS: Albumin, Serum 3.6 gm/dL (3.5-5.0); Anion Gap 7 (7-16); BUN/Creatinine Ratio 23 Ratio (12-20); Blood Urea Nitrogen 18 mg/dL (9-23); Calcium 8.5 mg/dL (8.3-10.6); Calcium (Corrected) 8.8 mg/dL (8.5-10.1); Carbon Dioxide 23.5 mMol/L (20.0-31.0); Chloride 109 mMol/L (98-107); Creatinine (Component) 0.8 mg/dL (0.6-1.3); Glucose 219 mg/dL (74-106); Magnesium 1.8 mg/dL (1.6-2.6); Osmolality,Calculated 286 (275-295); Phosphorous 1.1 mg/dL (2.4-5.1); Potassium 4.2 mMol/L (3.4-5.1); Sodium 139 mMol/L (136-145); eGFR > 60 See Note
[2024-10-16] MEDS: INSULIN LISPRO (AdmeLOG) 1 UNIT/0.01 ML UNIT SC (21:08)
[2024-10-16 23:00] LABS: Lactate (Lactic Acid) 1.6 mMol/L (0.4-2.0)
[2024-10-16 23:28] LABS: Albumin, Serum 3.4 gm/dL (3.5-5.0); Anion Gap 7 (7-16); BUN/Creatinine Ratio 24 Ratio (12-20); Blood Urea Nitrogen 19 mg/dL (9-23); Calcium 8.4 mg/dL (8.3-10.6); Calcium (Corrected) 8.9 mg/dL (8.5-10.1); Carbon Dioxide 23.6 mMol/L (20.0-31.0); Chloride 109 mMol/L (98-107); Creatinine (Component) 0.8 mg/dL (0.6-1.3); Glucose 184 mg/dL (74-106); Magnesium 1.8 mg/dL (1.6-2.6); Osmolality,Calculated 286 (275-295); Phosphorous 1.9 mg/dL (2.4-5.1); Potassium 4.8 mMol/L (3.4-5.1); Sodium 140 mMol/L (136-145); eGFR > 60 See Note
[2024-10-16] MEDS: ALBUTEROL/IPRATROPIUM (Duoneb) RT SOL 3 ML NEBU INH (23:36)
[2024-10-17] VITALS (30 sets, daily range): BP systolic 106–145; BP diastolic 64–88; PULSE 79–104; RESP 2–42; TEMP 36.2–37.3; O2SAT 95–100; BMI 21.7
[2024-10-17] MEDS: ALBUTEROL/IPRATROPIUM (Duoneb) RT SOL 3 ML NEBU INH ×2 (02:29→07:46)
--- NOTE | 2024-10-17 02:57 | PC.NURSE ---
MADE DR. PUCKETT AWARE OF KPHOS INFUSION RUNNING AT THE TIME OF LAST RENAL FUNCTION PANEL. STATES TO HOLD KPHOS PACKET THAT WAS ORDERED FOR NOW.
[2024-10-17 03:24] LABS: Lactate (Lactic Acid) 0.7 mMol/L (0.4-2.0)
[2024-10-17 03:27] LABS: Basophils # (Auto) 0.1 Thou/mm3 (0.0-0.2); Basophils % (Auto) 0 % (0-2.5); Eosinophils # (Auto) 0.1 Thou/mm3 (0.0-0.5); Eosinophils % (Auto) 0 % (0-10); Hematocrit 33.1 % (36.0-46.0); Hemoglobin 11.1 g/dL (12.0-16.0); Immature Granulocytes % (Auto) 1 % (0-0); Immature Granulocytes Auto 0.22 Thou/mm3 (0.00-0.00); Lymphocytes % (Auto) 11 % (10-50); Mean Corpuscular HGB Conc 33.5 g/dl (31.0-37.0); Mean Corpuscular Hemoglobin 28.5 pg (25.0-35.0); Mean Corpuscular Volume 85 fL (80-100); Monocytes # (Auto) 1.3 Thou/mm3 (0.0-0.8); Monocytes % (Auto) 5 % (0-12); Neutrophils # (Auto) 23.8 Thou/mm3 (1.8-7.7); Neutrophils % (Auto) 83 % (37-80); Nucleated Red Blood Cell % 0 /100 WBC (0); Platelet Count 283 Thou/mm3 (140-440); RDW Standard Deviation 43.2 fL (36.4-46.3); White Blood Count 28.6 Thou/mm3 (3.6-11.0)
[2024-10-17 03:46] LABS: Albumin, Serum 3.1 gm/dL (3.5-5.0); Anion Gap 8 (7-16); BUN/Creatinine Ratio 21 Ratio (12-20); Blood Urea Nitrogen 15 mg/dL (9-23); Calcium (Corrected) 8.7 mg/dL (8.5-10.1); Carbon Dioxide 21.7 mMol/L (20.0-31.0); Chloride 107 mMol/L (98-107); Creatinine (Component) 0.7 mg/dL (0.6-1.3); Estimated Creatinine Clearance 107.5 mL/min (>60); Glucose 254 mg/dL (74-106); Magnesium 1.7 mg/dL (1.6-2.6); Osmolality,Calculated 283 (275-295); Phosphorous 1.6 mg/dL (2.4-5.1); Potassium 4.2 mMol/L (3.4-5.1); Sodium 137 mMol/L (136-145); eGFR > 60 See Note
[2024-10-17] MEDS: NAPH,KPH MBDB 1 PACKET (1.5 GM) PO (04:08)
[2024-10-17] MEDS: ACETAMINOPHEN 500 MG TABLET 1000 MG PO ×2 (04:20→20:28)
[2024-10-17 06:45] LABS: Lactate (Lactic Acid) 1.1 mMol/L (0.4-2.0)
[2024-10-17 07:08] LABS: Albumin, Serum 3.7 gm/dL (3.5-5.0); Anion Gap 9 (7-16); BUN/Creatinine Ratio 23 Ratio (12-20); Blood Urea Nitrogen 18 mg/dL (9-23); Calcium 8.4 mg/dL (8.3-10.6); Calcium (Corrected) 8.6 mg/dL (8.5-10.1); Carbon Dioxide 23.1 mMol/L (20.0-31.0); Chloride 102 mMol/L (98-107); Creatinine (Component) 0.8 mg/dL (0.6-1.3); Glucose 348 mg/dL (74-106); Magnesium 1.8 mg/dL (1.6-2.6); Osmolality,Calculated 284 (275-295); Phosphorous 1.8 mg/dL (2.4-5.1); Potassium 4.6 mMol/L (3.4-5.1); Sodium 134 mMol/L (136-145); eGFR > 60 See Note
[2024-10-17] MEDS: INSULIN LISPRO (AdmeLOG) 1 UNIT/0.01 ML UNIT SC ×3 (07:31→20:29)
[2024-10-17] MEDS: Magnesium Sulfate 4 GM Ivpb 4 GM/50 ML BAG IV (08:05)
[2024-10-17] MEDS: PANTOPRAZOLE INJ 40 MG VIAL IV ×2 (08:05→20:28)
[2024-10-17] MEDS: ENOXAPARIN SOD INJ 40 MG/0.4 ML SYRINGE SC (08:05)
[2024-10-17] MEDS: SOD PHOS ADDITIVE 30 MMOL in SODIUM CHLORIDE 0.9% 500 ML 500 ML 62.5 MMOL IV (08:05)
[2024-10-17] MEDS: INSULIN GLARGINE (Lantus) 5 UNIT/0.05 ML (PER 5 UNITS) 20 UNIT SC ×2 (08:14→20:29)
[2024-10-17] MEDS: INSULIN LISPRO (AdmeLOG) 1 UNIT/0.01 ML UNIT 10 UNIT SC (08:20)
--- NOTE | 2024-10-17 08:56 | EVENTNT_ITS ---
Documentation for date of: 10/17/24 Event Note Event Note: ICU downgrade: This patient is a 28-year-old female with past medical history of type 1 diabetes with multiple admissions to the ICU for DKA presented with 1 week history of intractable vomiting, abdominal pain and nausea. She ran out of her insulin before admission. Patient was found to have DKA with elevated beta hydroxybutyrate acid leukocytosis and anion gap metabolic acidosis and was managed in ICU with insulin drip. Vitals revealed mildly elevated blood pressure with tachycardia. EKG showed sinus tachycardia with QTc 489. Today, patient showed improvement in her overall appetite and nausea and vomiting has resolved. Her anion gap closed twice and she was transition to insulin subcutaneous. Electrolytes were repleted. Patient is transition to subcut Lantus 20 units twice daily due to elevated blood sugars this morning. A1c was 12.1. Patient was started on carb consistent diet which she is tolerating well. Labs showed improvement in white count and mild drop in hemoglobin. MRSA scre en and urine culture pending. Patient be downgraded to Team A for continuation of care on 10/18/2024. Patient was discussed with attending physician, Dr.Bishwakarma Dr. Joe MD, PGY 2
--- NOTE | 2024-10-17 08:58 | ESPR_ITS ---
Documentation for date of: 10/17/24 Subjective Subjective Interval history: Patient was seen and examined at the bedside in the ICU. No acute overnight events. Her glucose was elevated at 350s in the morning she was given sliding scale insulin and 20 units of lispro, her glargine was changed to 20 units twice daily. Anion gap is closed x2 and she was transitioned to SC insulin. Patient will be downgraded for continuation of care to medical floor. Exam Vital Signs Temp Pulse Resp BP Pulse Ox O2 Del Method 98.4 F 87 16 109/72 100 Room Air 10/17/24 07:00 10/17/24 07:47 10/17/24 07:47 10/17/24 07:00 10/17/24 07:47 10/17/24 07:00 Narrative Exam Gen: Well-developed and well-nourished. HEENT: NCAT, PERRLA, EOMI, MMM, anicteric conjunctivae. CVS: normal S1 and S2. RRR. No M/R/G. Resp: CTA B/L. No rhonchi, rales, crackles or wheezing. Abd: soft, non-tender, non-distended. BS+ in all 4 quadrants. MSK: Good ROM in BUE & BLE. No edema or rash. Neuro: CN II-XII grossly intact. Strength 5/5 in BUE & BLE. Alert and oriented x3. Psych: appropriate mood and affect. Objective Labs 10/17/24 03:12 10/17/24 06:32 Labs: Laboratory Results - last 24 hr 10/16/24 10/16/24 10/16/24 11:05 15:15 19:15 WBC RBC Hgb Hct MCV MCH MCHC RDW Std Deviation Plt Count Neut % (Auto) Lymph % (Auto) [place] % (Auto) Eos % (Auto) Baso % (Auto) Neut # (Auto) Lymph # (Auto) [place] # (Auto) Eos # (Auto) Baso # (Auto) Immature Gran # (Auto) Absolute Nucleated RBC Immature Gran % Nucleated RBC % Sodium 142 142 139 Potassium 4.0 4.2 4.2 Chloride 110 H 111 H 109 H Carbon Dioxide 20.7 22.6 23.5 Anion Gap 11 8 7 BUN 23 20 18 Creatinine 0.8 0.8 0.8 Estim Creat Clear Calc 94.0 94.0 94.0 eGFR > 60 > 60 > 60 BUN/Creatinine Ratio 29 H 25 H 23 H Glucose 150 H D 164 H 219 H D Calculated Osmolality 289 289 286 Lactic Acid 1.2 0.9 0.8 Calcium 8.7 8.6 8.5 Corrected Calcium 8.8 8.8 8.8 Phosphorus 1.2 L 1.1 L 1.1 L Magnesium 1.7 2.1 1.8 Albumin 3.9 3.7 3.6 10/16/24 10/17/24 10/17/24 22:52 03:12 06:32 WBC 28.6 H RBC 3.90 L Hgb 11.1 L D Hct 33.1 L MCV 85 MCH 28.5 MCHC 33.5 RDW Std Deviation 43.2 Plt Count 283 D Neut % (Auto) 83 H Lymph % (Auto) 11 [place] % (Auto) 5 Eos % (Auto) 0 Baso % (Auto) 0 Neut # (Auto) 23.8 H Lymph # (Auto) 3.0 [place] # (Auto) 1.3 H Eos # (Auto) 0.1 Baso # (Auto) 0.1 Immature Gran # (Auto) 0.22 H Absolute Nucleated RBC 0.00 Immature Gran % 1 H Nucleated RBC % 0 Sodium 140 137 134 L Potassium 4.8 D 4.2 D 4.6 Chloride 109 H 107 102 Carbon Dioxide 23.6 21.7 23.1 Anion Gap 7 8 9 BUN 19 15 18 Creatinine 0.8 0.7 0.8 Estim Creat Clear Calc 94.0 107.5 95.0 eGFR > 60 > 60 > 60 BUN/Creatinine Ratio 24 H 21 H 23 H Glucose 184 H 254 H D 348 H D Calculated Osmolality 286 283 284 Lactic Acid 1.6 0.7 1.1 Calcium 8.4 8.0 L 8.4 Corrected Calcium 8.9 8.7 8.6 Phosphorus 1.9 L 1.6 L 1.8 L Magnesium 1.8 1.7 1.8 Albumin 3.4 L 3.1 L 3.7 D ABG Interpretation ABG results: 10/15/24 19:11 VBG pH 7.38 VBG pCO2 31 L VBG pO2 61 H VBG Base Excess -6 L Quality Measures Quality Measures VTE prophylaxis Assessment & Plan Assessment Current Active Medications: Generic Name Dose Route Start Last Admin Trade Name Freq PRN Reason Stop Dose Admin Acetaminophen 1,000 mg 10/17/24 04:17 Acetaminophen 500 Mg Tablet PO 11/16/24 04:16 Q6H PRN Fever >101.5 Acetaminophen 1,000 mg 10/17/24 04:18 10/17/24 04:20 Acetaminophen 500 Mg Tablet PO 11/16/24 04:16 1,000 mg Q6H PRN Administration PAIN SCALE 1-3 (mild Enoxaparin Sodium 40 mg 10/16/24 09:00 10/17/24 08:05 Enoxaparin Sod Inj 40 Mg/0.4 Ml Syringe SC 10/30/24 08:59 40 mg QDAY SULTANA Administration Glucagon 1 mg 10/16/24 18:47 Glucagon Inj 1 Mg Vial IM Q15MIN PRN BG <70, and no IV access Sodium Phosphate 30 mmol/ 510 mls @ 62.5 mls/hr 10/17/24 07:40 10/17/24 08:05 Sodium Chloride IV 10/17/24 15:49 62.5 mls/hr X1 ONE Administration Magnesium Sulfate 4 gm in 50 mls @ 12.5 mls/hr 10/17/24 07:41 10/17/24 08:05 Magnesium Sulfate Ivpb IV 10/17/24 11:40 12.5 mls/hr X1 ONE Administration Insulin Glargine 20 unit 10/17/24 09:00 10/17/24 08:14 Insulin Glargine (Lantus) 5 Unit/0.05 Ml (Per 5 Units) SC 11/16/24 08:59 20 unit BID SULTANA Administration Insulin Human Lispro 0 unit 10/16/24 21:00 10/17/24 07:31 Insulin Lispro (Admelog) 1 Unit/0.01 Ml Unit SC 11/15/24 20:59 6 unit ACHS SULTANA Administration Protocol Ondansetron HCl 4 mg 10/16/24 02:57 Ondansetron Inj 2 Mg/Ml Inj 2 Ml IV 11/15/24 02:56 Q6H PRN NAUSEA OR VOMITING Protocol Pantoprazole Sodium 40 mg 10/16/24 21:00 10/17/24 08:05 Pantoprazole Inj 40 Mg Vial IV 11/15/24 20:59 40 mg BID SULTANA Administration Sucralfate 1 gm 10/16/24 14:00 10/17/24 05:29 Sucralfate Susp 1 Gm/10 Ml Udc PO 11/15/24 13:59 Not Given TID SULTANA Plan Patient is a 28 years old female with type 1 IDDM & recurrent hospitalizations for DKA who presented to the ED from home on 10/16/2024 due to symptoms of nausea, vomiting and generalized weakness associated with chills and SOB. Patient reports running out of insulin approximately 1 week prior o presentation after which her symptoms started. Patient was found to be in DKA and was subsequently admitted for treatment and management. Neurological Stable. Cardiology Tachycardia most likely in the setting of an acidotic state, resolved. Pulmonary Stable, non-tachypnic, saturating well in ambient air. Gastrointestinal #Nausea and vomiting, resolved. Plan: -Zofran as needed for N/V. -GI PPX: 40 mg Pantoprazole QD. Renal/Genitourinary #Anion Gap Metabolic acidosis, resolved. Anion Gap 28, Beta Hydroxybutyrate> 6.4, HCO3 <10. Blood Gas:? 7.38/pCO2 31/HCO3 10. #YUMIKO, resolved. #Hypophosphatemia. #Hyponatremia. Creatinine: 1.6 most likely prerenal due to dehydration. Continue IV fluids. Today phosphate 1.8, Cr 0.8, Na 134. Plan: -IVF per DKA protocol discontinued. -electrolytes repleted per DKA protocol. Endocrine #Diabetic Ketoacidosis, resolved. #Hx of poorly controlled IDDM type I. Mostly likely due to medical noncompliance. Blood Glucose: 518, Anion Gap Metabolic acidosis: Anion Gap 19, Beta Hydroxybutyrate> 6.4, HCO3 <10. Today anion gap 9. Plan: -transitioned from insulin drip to SC sliding scale and glargine 20u BID. -Renal panel Q4H Hematology #Leukocytosis. WBC: 29.8, most likely reactive secondary to DKA state. #Normocytic anemia. Admitted with Hgb WNL, dropped to 11.1 after aggressive IVF, likely dilutional. Infectious Disease No signs of active infection, afebrile. Skin No acute issues, no evidence of skin breakdown. Diet: carbs consistent. Code Status: Full Code. DVT Prophylaxis: None. GI Prophylaxis: Pantoprazole. Disposition:? Patient requires inpatient ICU admission for DKA requiring IV fluids and IV insulin. Plan of care discussed with attending Dr. العراقي. Warren Carrasco MD, PGY 2. Disclaimer: This note was dictated by speech recognition. Minor errors in honing machine set up operator may be present due to voice recognition software. Attending Provider Attestation/Addendum Patient seen and examined with above resident, Warren Salazar MD. I agree with the findings, assessment, plan of care as documented except for any differences below. Patient successfully transitioned over from IV insulin to subcu regimen. Hypoglycemia continues to persist and multiple electrolyte derangements corrected. Further adjustments of insulin were made prior to patient being transferred to floor for ongoing management. Patient is tolerating p.o. now. Likely be able to discharge in next 24 to 48 hours with further optimization. Total critical care time: I personally spent 30 minutes for review of physiologic parameters, directing plan of care, and coordination of care with medicine, and counseling patient at bedside. This is exclusive of time spent teaching housestaff or performing separate billable procedures. Patient continues to require critical care services for severe metabolic acidosis secondary to DKA without coma. Patient at risk for further morbidity and mortality requiring close monitoring and management will be available in the intensive care unit.
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
[2024-10-17] MEDS: SUCRALFATE SUSP 1 GM/10 ML UDC PO ×2 (14:13→22:39)
--- NOTE | 2024-10-17 20:53 | PC.NURSE ---
SPOKE WITH DR. RUST ON THE FLOOR. STATES OK TO GIVE LANTUS 20U SQ BID TONIGHT'S DOSE FOR BS 156. RN WAS CONCERNED BC HER FSBS AT 1600 WAS 96. PT STATES THAT SHE ONLY TAKES LANTUS 15U AT NIGHT.
[2024-10-18] VITALS: BP 123/87; PULSE 71; PULSE 74; RESP 16; TEMP 36.8; O2SAT 96
--- NOTE | 2024-10-18 01:45 | PC.NURSE ---
DR. RUST NOTIFIED REGARDING ABDOMINAL PAIN. PT IS NOT DUE YET FOR HER TYLENOL 1000 MG EVERY 6 HOURS. STATES OK TO GIVE TYLENOL EARLY.
[2024-10-18] MEDS: ACETAMINOPHEN 500 MG TABLET 1000 MG PO (01:56)
[2024-10-18 04:00] VITALS: BP 121/82; PULSE 74; PULSE 85; RESP 17; TEMP 36.7; O2SAT 96
[2024-10-18] MEDS: SUCRALFATE SUSP 1 GM/10 ML UDC PO (05:39)
--- NOTE | 2024-10-18 05:41 | PC.NURSE ---
RT MADE AWARE THAT PT IS REQUESTING BREATHING TREATMENT. STATES THAT RT IS THE MIDDLE OF REPORT BUT WILL LET RT ANKUSH AWARE.
[2024-10-18 06:00] VITALS: BMI 21.7
[2024-10-18 07:02] LABS: Basophils % (Auto) 0 % (0-2.5); Eosinophils # (Auto) 0.1 Thou/mm3 (0.0-0.5); Eosinophils % (Auto) 1 % (0-10); Hematocrit 34.4 % (36.0-46.0); Hemoglobin 11.3 g/dL (12.0-16.0); Immature Granulocytes % (Auto) 0 % (0-0); Immature Granulocytes Auto 0.03 Thou/mm3 (0.00-0.00); Lymphocytes # (Auto) 2.8 Thou/mm3 (1.0-4.8); Lymphocytes % (Auto) 25 % (10-50); Mean Corpuscular HGB Conc 32.8 g/dl (31.0-37.0); Mean Corpuscular Hemoglobin 27.7 pg (25.0-35.0); Mean Corpuscular Volume 84 fL (80-100); Monocytes # (Auto) 0.8 Thou/mm3 (0.0-0.8); Monocytes % (Auto) 7 % (0-12); Neutrophils # (Auto) 7.8 Thou/mm3 (1.8-7.7); Neutrophils % (Auto) 67 % (37-80); Nucleated Red Blood Cell % 0 /100 WBC (0); Platelet Count 231 Thou/mm3 (140-440); RDW Standard Deviation 41.5 fL (36.4-46.3); Red Blood Count 4.08 Miln/mm3 (4.00-5.20); White Blood Count 11.5 Thou/mm3 (3.6-11.0)
[2024-10-18 07:19] VITALS: PULSE 80; RESP 16; O2SAT 98
[2024-10-18 07:54] LABS: Alanine Aminotransferase 106 U/L (10-49); Albumin, Serum 3.5 gm/dL (3.5-5.0); Albumin/Globulin Ratio 1.7 (1.2-2.2); Alkaline Phosphatase 164 U/L (46-116); Anion Gap 7 (7-16); Aspartate Amino Transferase 155 U/L (0-34); BUN/Creatinine Ratio 24 Ratio (12-20); Bilirubin,Total 0.6 mg/dL (0.3-1.2); Blood Urea Nitrogen 12 mg/dL (9-23); Calcium 8.6 mg/dL (8.3-10.6); Carbon Dioxide 27.1 mMol/L (20.0-31.0); Chloride 104 mMol/L (98-107); Creatinine (Component) 0.5 mg/dL (0.6-1.3); Estimated Creatinine Clearance 145.9 mL/min (>60); Globulin 2.1 gm/dL (2.3-3.5); Glucose 71 mg/dL (74-106); Magnesium 1.9 mg/dL (1.6-2.6); Osmolality,Calculated 273 (275-295); Phosphorous 2.4 mg/dL (2.4-5.1); Potassium 3.9 mMol/L (3.4-5.1); Sodium 138 mMol/L (136-145); Total Protein 5.6 gm/dL (5.7-8.2); eGFR > 60 See Note
[2024-10-18 08:00] VITALS: BP 116/81; PULSE 83; PULSE 86; RESP 15; TEMP 36.4; O2SAT 96
[2024-10-18] MEDS: ACETAMINOPHEN SOL 325 MG/10 ML UDC 650 MG PO (08:46)
[2024-10-18] MEDS: Magnesium Sulfate 1 gm Ivpb 1 GM/100 ML BAG IV (08:46)
[2024-10-18] MEDS: PANTOPRAZOLE INJ 40 MG VIAL IV (08:46)
[2024-10-18] MEDS: NAPH,KPH MBDB 1 PACKET (1.5 GM) PO (08:48)
[2024-10-18] MEDS: ENOXAPARIN SOD INJ 40 MG/0.4 ML SYRINGE SC (08:48)
--- NOTE | 2024-10-18 10:32 | PC.NURSE ---
Discharge has been discussed with patient. Patient will have mode of transportation at approximately 13:00.
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
[2024-10-18 12:00] VITALS: BP 134/93; PULSE 76; RESP 14; TEMP 36.5; O2SAT 98
[2024-10-18] MEDS: INSULIN LISPRO (AdmeLOG) 1 UNIT/0.01 ML UNIT SC (12:10)
--- NOTE | 2024-10-18 18:05 | ESDS_ITS ---
<Statement entered by Huey Diaz MD - 10/18/24 18:10> I saw and examined the patient, and I agree with current management stated by Dr Vinay DO,PGY1. Plan of care was discussed with the attending physician and resident physician. Disclaimer: Despite multiple revisions, due to the dictation software being used, the document bellow may not be free of grammatical errors including phonetic/typographic errors. However, this does not deter from our commitment to providing health care in the patient's best interest in mind. Dr. Noy MD, PGY 2 Planned Discharge Date 10/18/24 DS: Providers Provider Date of admission: 10/16/24 03:06 Primary care physician: Chance Godinez PA-C Admitting Provider: Kennedy Duke MD Attending Provider on Admission: Leana Padron MD Consults: 10/16/24 02:52 Referral Registered Dietitian Routine Comment: Attending Provider on DC: Micha Jenkins Discharging Provider: Micha Jenkins DS: Diagnosis Problem List Completed Was Problem List Reviewed/Reconciled?: Yes Hospital Course Hospital Course Hospital course: #Nausea and vomiting #Anion Gap Metabolic acidosis #YUMIKO #Hypophosphatemia #Hyponatremia #Diabetic Ketoacidosis #Hx of poorly controlled IDDM type I #Leukocytosis. #Normocytic anemia. Admitted with Hgb W Ms. Dawson Daniels is a 28-year-old lady with a past medical history of type 1 diabetes with multiple admissions to the ICU for DKA who presented to the ED for a 1 week history of vomiting and feeling nauseated. Patient reports that approximately 1 week prior to admission she had ran out of her inuslin. and began to experience progressively worsening symptoms of nausea, non-bloody vomiting and abdominal pain. She also reported associated symptoms of chills and decreased PO intake. Due to her symptoms worsening, the patient presented to the ED on 10/16/2024 ED course: In the ED, patient was found to be in DKA with elevated glucose of and beta hydroxybutyric acid >6.4, bicarb was < 10. CBC revealed significant leukocytosis of 29.8. ABG ABG 7.38/pCO2 31/HCO3 10 consistent with anion gap metabolic acidosis in the setting of diabetic ketoacidosis. Urinalysis 4+ ketones and 4+ glucose. Chest x-ray was negative. CT C/A/P was read as thickening versus underdistention of the colon; possibility of mild colitis cannot be excluded. No evidence of intraabdominal fluid collection or abscess. Mild wall thickening of the distal esophagus/gastoesophageal junction suspicious for reflux esophagitis. Patient was admitted to the ICU for treatment and management of diabetic ketoacidosis requiring insulin gtt. patient was treated for diabetic ketoacidosis which had resolved and was downgraded to the floor units. Over course of patient's hospital stay patient's abdominal pain improved, electrolytes normalized, blood glucose was well-controlled, acidosis resolved. Patient at time of discharge tolerated regular diet. Patient will be discharged home with durable medical equipment for more strict glucose control. Patient will be sent home with insulin and is advised to take it as prescribed. Patient is advised to follow-up with primary care physician within 7 days of discharge. Strong references is also stressed to patient about the importance of strict glycemic control. Patient is understanding of instructions and is amenable to discharge. Status at Discharge Cognitive/behavioral status at discharge: Stable Time Spent with Patient Time attestation: Total time spent providing and/or coordinating discharge services: Exam Vital Signs Temp Pulse Resp BP Pulse Ox O2 Del Method 97.7 F 76 14 134/93 H 98 Room Air 10/18/24 12:10/18/24 12:10/18/24 12:10/18/24 12:10/18/24 12:10/18/24 12:00 Narrative Exam Gen: Well-developed and well-nourished. HEENT: NCAT, PERRLA, EOMI, MMM, anicteric conjunctivae. CVS: normal S1 and S2. RRR. No M/R/G. Resp: CTA B/L. No rhonchi, rales, crackles or wheezing. Abd: soft, non-tender, non-distended. BS+ in all 4 quadrants. MSK: Good ROM in BUE & BLE. No edema or rash. Neuro: CN II-XII grossly intact. Strength 5/5 in BUE & BLE. Alert and oriented x3. Psych: appropriate mood and affect. Discharge Plan Plan Patient Disposition: HOME (Self Care) Patient condition on transfer: Stable Prescriptions/Referrals Prescriptions/Med Rec: New insulin degludec [Tresiba FlexTouch U-100] 100 unit/mL (3 mL) insulin pen 20 unit subcut HS Qty: 15 4RF (DME) blood-glucose meter [Blood Glucose Monitoring] Kit See Rx Instructions .Route Qty: 1 0RF Rx Instructions: As directed (DME) Blood Glucose Test Strip See Rx Instructions .Route Qty: 50 0RF Rx Instructions: As directed (DME) insulin syringe-needle U-100 [Ultra-Thin II Insulin Syringe] 1 mL 29 gauge x 1/2 syringe See Rx Instructions .Route Qty: 100 0RF Rx Instructions: As directed Gvoke 1 mg/0.2 mL solution 1 mg subcut Q20M PRN (Reason: hypoglycemia) Qty: 0.2 0RF Rx Instructions: until target blood sugar attained pantoprazole 40 mg tablet,delayed release (DR/EC) 40 mg PO QDAY Qty: 14 0RF metoclopramide HCl [Reglan] 10 mg tablet 10 mg PO Q6H PRN (Reason: nausea and vomiting) Qty: 60 0RF Discontinued pantoprazole 40 mg tablet,delayed release (DR/EC) 40 mg PO QDAY PRN (Reason: gastric reflux) Qty: 30 0RF metoclopramide HCl [Reglan] 10 mg tablet 10 mg PO Q6H PRN (Reason: nausea and vomiting) Qty: 14 0RF pantoprazole [Protonix] 40 mg tablet,delayed release (DR/EC) 40 mg PO QDAY Qty: 14 0RF insulin glargine [Lantus Solostar U-100 Insulin] 100 unit/mL (3 mL) insulin pen 20 unit subcut QAM 30 Days Qty: 6 1RF metoclopramide HCl [Reglan] 10 mg tablet 10 mg PO Q6H PRN (Reason: nausea and vomiting) Qty: 10 0RF No Action (DME) lancet-gluc xkvor-zsvrhi-dhzdd Kit See Rx Instructions .Route Qty: 1 1RF Rx Instructions: As directed Referrals: Chance Godinez PA-C [Primary Care Provider] - Patient/Caregiver Discharge Instructions Other Discharge Activity Instructions:: Please take your new medications as prescribed Please follow-up with your primary care provider within 7 days of discharge, If you do not have a primary care physician you can establish care with the [facility] at [address] [place] [address] , [address], [place], [place] [id number] Please continuously check your blood glucose throughout the day, and if higher than 300 or you are symptomatic please return to the emergency department. Education Materials: CGM, High Blood Sugar (Hyperglycemia), How to Check Your Blood Sugar, Healthy Meals for Diabetes, Diabetes: Caring for Your Body, Diabetes and Kidney Disease, Diabetes Exercise Get Started, Diabetes Exercise Plan, Diabetes Tracking Your Fitness ..., Diabetes Carbs Fats Protein Print Language: Serbian Stand Alone Forms: [employer] Award Info., Patient Portal Info Letter Discharge Order Discharge Orders: Discharge (Routine); Ordered 10/18/24 Ordered By: Huey Diaz Quality Discharge Quality Measures VTE prophylaxis Attestestation MD Attestation I attest that I was physically present for the evaluation, physical examination, lab and imaging review of the patient with the residents. I discussed the case with the residents and agree with the findings and plans of care as documented above. Leana Padron MD
== END 2024-10-18 13:01 | disposition home or self-care (01) | DRG 420 ==
LOC: SERX 22:43 → S2SX 10-17 06:51 → S2NX 10-17 09:43 → S2SX 10-17 10:28 → SERHOLD 10-17 10:28
PROVIDERS: Student in an Organized Health Care Education/Training Program; Admitting Provider Student in an Organized Health Care Education/Training Program; Emergency Provider Emergency Medicine; PCP Physician Assistant; Visit Provider Student in an Organized Health Care Education/Training Program
DX: E10.10 Type 1 diabetes mellitus with ketoacidosis without coma (principal); N17.9 Acute kidney failure, unspecified; D72.829 Elevated white blood cell count, unspecified; E86.0 Dehydration; D64.9 Anemia, unspecified; K21.00 Gastro-esophageal reflux disease with esophagitis, without bleeding; E83.39 Other disorders of phosphorus metabolism; E87.1 Hypo-osmolality and hyponatremia; F17.210 Nicotine dependence, cigarettes, uncomplicated; T38.3X6A Underdosing of insulin and oral hypoglycemic [antidiabetic] drugs, initial encounter; Z91.148 Patient's other noncompliance with medication regimen for other reason; Z79.4 Long term (current) use of insulin; Z79.899 Other long term (current) drug therapy
CPT/HCPCS: 36415; 74177; 80048; 80053; 80061; 80069; 81001; 82010; 82803; 83036; 83605; 83735; 84100; 84443; 85025; 87077; 87081; 87086; 87186; 87811; 93005; 94640; 94664; 96361; 96365; 96366; 96374; 96375; 99291; A4649; A9270; J1650; J1815; J2405; J2470; J3475; J3480; J7030; J7040; J7120; Q9967

== ENCOUNTER 2025-03-29 09:27 | Inpatient (IN) | payer MEDICAID, SELFPAY ==
[2025-03-29] VITALS (19 sets, daily range): BP systolic 85–161; BP diastolic 48–103; PULSE 84–140; RESP 12–100; TEMP 36.5–37.3; O2SAT 96–100; BMI 22.3; BMI 22.2
--- NOTE | 2025-03-29 09:42 | PC.NURSE ---
BIBA; PER EMS, PT COMING FROM HOME WITH C/O BLOOD SUGAR READING HIGH. PT C/O ABD PAIN WITH N/V WELL 07/21. EMS FSBS READ HIGH WELL. PMH TYPE 1 DM, C-SECITON, TUBAL LIGATION. PT WAS TACHYCARDIC IN THE 140'S. BP 132/77, 98% ON RA. RR 2-24. UPON ARRIVAL, PT HAD 1 EMESIS EP ABOUT 700ML, COLOR YELLOW, NO BLOOD NOTED. PT CONNECTED TO MONITORS AT THIS TIME.
--- NOTE | 2025-03-29 09:49 | EKG_ITS ---
[facility] Test Date: 2025-03-29 Pat Name: LANDRY WILKES Department: Room: - Gender: Female Counter Helper: : 1995 Requested By: Ry Rodriguez Order Number: [id number] Reading MD: Ry Rodriguez Measurements Intervals [place] Rate: 123 P: 87 [place]: 132 QRS: 86 QRSD: 77 T: 46 QT: 298 QTc: 428 Interpretive Statements SINUS TACHYCARDIA ABNORMAL RHYTHM ECG Compared to ECG 10/16/2024 06:24:06 No significant changes /store/S0/[id number].pdf
--- NOTE | 2025-03-29 09:49 | XR_ITS ---
Examination: AP chest single view Technique one AP portable upright chest single view Date and time: March 29, 2025 1037 hours INDICATIONS: Chest pain shortness of breath beginning 2 days ago. FINDINGS: Normal heart size Lungs are clear. The osseous structures are intact IMPRESSION: No active disease
--- NOTE | 2025-03-29 09:50 | EDNOTE_ITS ---
ED Abdominal Pain RME/HPI General Chief Complaint: Nausea/Vomiting/Diarrhea Stated complaint: HIGH BLOOD SUGAR Time seen by provider: 03/29/25 09:47 Arrival date/time: 03/29/25 09:27 RME / HPI RME / HPI narrative: This section includes all my notes and documentations, including HPI, PE, and ED course.? Ry Arellano MD HPI: 29 year old female with a known history of type 1 diabetes and prior admissions for DKA presented to the ED BIBA from home with several days of vomiting and anorexia and abdominal pain no insulin treatment. No fever. No other complaints. ROS: All negative except as documented in HPI. Physical Exam: General:? Alert and oriented.? Appearance of severe malaise noted. Eyes:? Conjunctivae and lids clear.?? ENT:? No nasal congestion.? Neck:? Supple.?? Heart: Sinus tachycardia noted. Lungs:? No respiratory distress.? Good air movement.? No rhonchi, wheezing, rales.?? Abdomen:? Soft and nontender.? Normal bowel sounds.? No distension.? No rebound or guarding.?? Back:? No CVA tenderness.?? Skin:? Warm and dry.?? Neuro:? Alert and oriented X 3. I reviewed EMS notes. I reviewed all diagnostic test results: My interpretation of the EKG is: Sinus tachycardia (123 bpm) with no ST-T changes. My interpretation of the chest x-ray is: No active disease. Blood tests remarkable for WBC 35.3, ESR 55, anion gap 30, Glu 621, lactic acid 4.1, beta hydroxybutyrate 6.4, procalcitonin 4.46. ABG showed pH 7.23, pCO2 20, and pHCO3 8. UA showed 4+ glucose and 4+ ketones. UDS positive for opiates and marijuana (patient was given morphine here). Covid/Influenza negative. At this point, diagnoses include: DKA. Treatment here included: IV fluids, insulin, morphine, zofran, rocephin. No significant improvement noted. I discussed the case with our client service representative.? About the presentation and exam and diagnostics and treatments here.? And need of further care in the hospital.? Will accept the patient. Ry Arellano MD Related Data Previous Rx's ?Medication ?Instructions ?Recorded lancets-blood glucose test #1 ea 09/23/23 strips-pen needles with gauze kit blood sugar diagnostic (Blood #50 ea 10/18/24 Glucose Test strips) blood-glucose meter (Blood Glucose #1 ea 10/18/24 Monitoring kit) glucagon 1 mg/0.2 mL subcutaneous 1 mg (0.2 mL) subcut Q20M PRN 10/18/24 solution (Gvoke) hypoglycemia #0.2 mL insulin degludec 100 unit/mL (3 20 unit (0.2 mL) subcu t HS #15 mL 10/18/24 mL) subcutaneous pen (Tresiba FlexTouch U-100 insulin) insulin syringe-needle U-100 1 mL #100 ea 10/18/24 29 gauge x 1/2 (Ultra-Thin II Insulin Syringe) metoclopramide HCl 10 mg tablet 10 mg PO Q6H PRN nause a and 10/18/24 (Reglan) vomiting #60 tabs pantoprazole 40 mg tablet,delayed 40 mg PO QDAY #14 ta bs 10/18/24 release Allergies Allergy/AdvReac Type Severity Reaction Status Date / Time No Known Allergies Allergy Verified 10/15/24 17:30 Review of Systems Review of Systems Systems Reviewed: All systems reviewed, normal except as documented Past Medical History Past Medical History RESPIRATORY: Positive Pneumonia GASTROINTESTINAL: Positive Pancreatitis and Gastroesophageal Reflux Disease REPRODUCTIVE: Positive Previous Pregnancies ENDOCRINE: Positive Endocrine Disorders, Diabetes Mellitus Type 1 and Diabetes Mellitus Type 2 PSYCHO/SOCIAL: Positive Anxiety OTHER HISTORY: Positive Chicken Pox Family History FAMILY HISTORY: Negative Family Neurologic Problems, Family Psychiatric Problems, Family Respiratory Disorders, Family Cardiac Disorders, Family Gastrointestinal Problems, Family Cancer, Family Surgery or Family Anesthesia Reaction Surgical History SURGICAL: Positive Section; Negative Pacemaker Social History SMOKING STATUS: Light (< 1 pack/day) SECOND HAND EXPOSURE: No SUBSTANCE USE: marijuana ED Exam Narrative Physical exam: As noted in HPI Course Quality Measures Current suspected stage: sepsis Possible source: unknown Blood cultures ordered: completed in ED Antibiotic ordered: Yes Pertinent labs: 03/29/25 10:11 Lactic Acid 4.1 H* mMol/L (0.4-2.0) Procalcitonin 4.46 H ng/ml (0.0-0.49) sepsis Orders Category Date Time Status Admit to Inpatient Status Routine Admission 03/29/25 11:48 Active Patient Condition Routine Admission 03/29/25 11:48 Ordered Bedside Blood Glucose Q1H Care 03/29/25 11:52 Active Bedside COVID-19 Antigen Test NOW Care 03/29/25 09:48 Active Bedside Influenza A&B Antigen Test NOW Care 03/29/25 09:48 Completed COVID-19 Screening Questionnaire NOW Care 03/29/25 11:16 Active Executive Administrator Q4H Care 03/29/25 11:52 Active DKA Protocol QSHIFT Care 03/29/25 11:52 Active Decision to Admit X1 Care 03/29/25 11:16 Completed EKG (ED ONLY) *Do not use* NOW Care 03/29/25 09:49 Completed Glucose [Bedside Blood Glucose] NOW Care 03/29/25 09:47 Active Intake and Output Q1H Care 03/29/25 12:00 Ordered Intake and Output Q1H Care 03/29/25 13:00 Ordered Intake and Output Q1H Care 03/29/25 14:00 Ordered Intake and Output Q1H Care 03/29/25 15:00 Ordered Intake and Output Q1H Care 03/29/25 16:00 Ordered Intake and Output Q1H Care 03/29/25 17:00 Ordered Intake and Output Q1H Care 03/29/25 18:00 Ordered Intake and Output Q1H Care 03/29/25 19:00 Ordered Intake and Output Q1H Care 03/29/25 20:00 Ordered Intake and Output Q1H Care 03/29/25 21:00 Ordered Intake and Output Q1H Care 03/29/25 22:00 Ordered Intake and Output Q1H Care 03/29/25 23:00 Ordered NPO NOW Care 03/29/25 11:49 Active Notify provider NEEDED Care 03/29/25 11:48 Active Saline [Insert IV] NOW Care 03/29/25 09:48 Active Sequential Compression Device QSHIFT Care 03/29/25 11:48 Active Straight [In and Out Catheter] X1 Care 03/29/25 09:48 Completed Referral Registered Dietitian Routine Cons 03/29/25 11:52 Active Diet NPO (NOW) Diet 03/29/25 11:49 Active EKG (ED Only) Stat Exams 03/29/25 09:49 Draft XR chest 1V portable Stat Exams 03/29/25 09:49 Completed ABG [Arterial Blood Gas] Stat Lab 03/29/25 10:19 Completed Alcohol, Blood Medical Stat Lab 03/29/25 10:11 Completed Amylase Stat Lab 03/29/25 10:11 Completed BNP [B-Type Natriuretic Peptide] Stat Lab 03/29/25 10:11 Completed Beta Hydroxybutyrate DAILY Lab 03/31/25 09:00 Ordered Beta Hydroxybutyrate DAILY Lab 04/01/25 09:00 Ordered Beta Hydroxybutyrate DAILY Lab 04/02/25 09:00 Ordered Beta Hydroxybutyrate Stat Lab 03/29/25 10:11 Completed Bilirubin,Direct Stat Lab 03/29/25 10:11 Completed Blood Culture (Lab) Stat Lab 03/29/25 10:03 Received CBC AM DRAW Lab 03/30/25 05:00 Ordered CBC AM DRAW Lab 03/31/25 05:00 Ordered CBC AM DRAW Lab 04/01/25 05:00 Ordered CBC Stat Lab 03/29/25 10:11 Completed CMP [Comprehensive Metabolic Panel] Stat Lab 03/29/25 10:11 Completed CRP [C-Reactive Protein] Stat Lab 03/29/25 10:11 Completed Drug Screen,Urine Stat Lab 03/29/25 09:50 Completed ESR [Sed Rate (ESR)] Stat Lab 03/29/25 10:11 Completed Free T4 (Free Thyroxine) Stat Lab 03/29/25 10:11 Completed Giardia Antigen, EIA, Stool* Stat Lab 03/29/25 Ordered HCG Qualitative,Urine Stat Lab 03/29/25 10:54 Completed HCG,Qualitative Serum Stat Lab 03/29/25 10:11 Completed Hemoglobin A1C [Glycohemoglobin w (eAG)] Stat Lab 03/29/25 10:11 Completed Lactate (Lactic Acid) Q4H Lab 03/29/25 16:00 Ordered Lactate (Lactic Acid) Q4H Lab 03/29/25 20:00 Ordered Lactate (Lactic Acid) Q4H Lab 03/30/25 00:00 Ordered Lactate (Lactic Acid) Q4H Lab 03/30/25 04:00 Ordered Lactate (Lactic Acid) Q4H Lab 03/30/25 08:00 Ordered Lactate (Lactic Acid) Q4H Lab 03/30/25 12:00 Ordered Lactate (Lactic Acid) Q4H Lab 03/30/25 16:00 Ordered Lactate (Lactic Acid) Q4H Lab 03/30/25 20:00 Ordered Lactate (Lactic Acid) Q4H Lab 03/31/25 00:00 Ordered Lactate (Lactic Acid) Q4H Lab 03/31/25 04:00 Ordered Lactate (Lactic Acid) Q4H Lab 03/31/25 08:00 Ordered Lactate (Lactic Acid) Q4H Lab 03/31/25 12:00 Ordered Lactate (Lactic Acid) Stat Lab 03/29/25 10:11 Results Lipase Stat Lab 03/29/25 10:11 Completed Magnesium Q4H Lab 03/29/25 16:00 Ordered Magnesium Q4H Lab 03/29/25 20:00 Ordered Magnesium Q4H Lab 03/30/25 00:00 Ordered Magnesium Q4H Lab 03/30/25 04:00 Ordered Magnesium Q4H Lab 03/30/25 08:00 Ordered Magnesium Q4H Lab 03/30/25 12:00 Ordered Magnesium Q4H Lab 03/30/25 16:00 Ordered Magnesium Q4H Lab 03/30/25 20:00 Ordered Magnesium Q4H Lab 03/31/25 00:00 Ordered Magnesium Q4H Lab 03/31/25 04:00 Ordered Magnesium Q4H Lab 03/31/25 08:00 Ordered Magnesium Q4H Lab 03/31/25 12:00 Ordered Magnesium Stat Lab 03/29/25 10:11 Completed Norovirus, EIA (Stool)* Stat Lab 03/29/25 Ordered PT [Prothrombin Time with INR] Stat Lab 03/29/25 10:11 Completed PTT [Partial Thromboplastin Time] Stat Lab 03/29/25 10:11 Completed Path Review Blood Smear Stat Lab 03/29/25 10:11 Completed Phosphorous Q4H Lab 03/30/25 00:00 Ordered Phosphorous Q4H Lab 03/30/25 04:00 Ordered Phosphorous Q4H Lab 03/30/25 08:00 Ordered Phosphorous Q4H Lab 03/30/25 12:00 Ordered Phosphorous Q4H Lab 03/30/25 16:00 Ordered Phosphorous Q4H Lab 03/30/25 20:00 Ordered Phosphorous Q4H Lab 03/31/25 00:00 Ordered Phosphorous Q4H Lab 03/31/25 04:00 Ordered Phosphorous Q4H Lab 03/31/25 08:00 Ordered Phosphorous Q4H Lab 03/31/25 12:00 Ordered Phosphorous Stat Lab 03/29/25 10:11 Completed Procalcitonin Stat Lab 03/29/25 10:11 Completed Renal Function Panel Q4 Lab 03/29/25 16:00 Ordered Renal Function Panel Q4 Lab 03/29/25 20:00 Ordered Renal Function Panel Q4 Lab 03/30/25 00:00 Ordered Renal Function Panel Q4 Lab 03/30/25 04:00 Ordered Renal Function Panel Q4 Lab 03/30/25 08:00 Ordered Renal Function Panel Q4 Lab 03/30/25 12:00 Ordered Renal Function Panel Q4 Lab 03/30/25 16:00 Ordered Renal Function Panel Q4 Lab 03/30/25 20:00 Ordered Renal Function Panel Q4 Lab 03/31/25 00:00 Ordered Renal Function Panel Q4 Lab 03/31/25 04:00 Ordered Renal Function Panel Q4 Lab 03/31/25 08:00 Ordered Renal Function Panel Q4 Lab 03/31/25 12:00 Ordered Stool Culture Stat Lab 03/29/25 11:55 Ordered Stool for WBCs Stat Lab 03/29/25 11:55 Ordered TSH [Thyroid Stimulating Hormone] Stat Lab 03/29/25 10:11 Completed Troponin I Stat Lab 03/29/25 10:11 Completed UA, C/S IF [Urinalysis, C/S if Indicated] Stat Lab 03/29/25 10:54 Completed Acetaminophen Tab [Tylenol Tab] Med 03/29/25 11:48 Active 650 mg PO Q6H PRN CIPROFLOXACIN/D5w 400 MG IVPB [Cipro Ivpb] Med 03/29/25 11:55 Ordered 400 mg in 200 ml IV Q12HR Dextrose 5%-Lactated Ringers [D5-Lr] 1,000 ml Med 03/29/25 11:51 Ordered Pot Chl Additive [KCl Additive] 40 meq IV 250 mls/hr Dextrose 5%-Lactated Ringers [D5-Lr] 1,000 ml Med 03/29/25 11:51 Active IV 250 mls/hr Dextrose 50% Syr [D50w Syringe Abboject] Med 03/29/25 11:51 Active 25 ml IV PRNMRX1 PRN HYDROmorphone INJ [Dilaudid Inj] Med 03/29/25 11:48 Active 0.5 mg IVP Q4H PRN HYDROmorphone INJ [Dilaudid Inj] Med 03/29/25 11:11 Discontinued 0.5 mg IVP X1 ONE Insulin Reg 100 Units/100 ml [Myxredlin] Med 03/29/25 10:40 Active 100 unit in 100 ml IV 0.1 unit/kg/hr Insulin Regular Med 03/29/25 09:48 Discontinued 10 unit IV X1 ONE KCL 20 mEq/L in D5-LR Med 03/29/25 11:51 Ordered 20 meq in 1,000 ml IV 250 mls/hr Magnesium Sulfate 2 GM Ivpb [Magnesium Sulfate Ivpb] Med 03/29/25 11:51 Ordered 2 gm in 50 ml IV 25 mls/hr Morphine Inj Med 03/29/25 09:48 Discontinued 4 mg IVP X1 ONE Ondansetron Inj [Zofran Inj] Med 03/29/25 11:48 Active 4 mg IVP Q6H PRN Ondansetron Inj [Zofran Inj] Med 03/29/25 09:48 Discontinued 4 mg IVP X1 ONE POT PHOS 15 mMol in NS 250 ML [Pot Phos 15 mMol in NS Med 03/29/25 11:51 Active 250 ml] 15 mmol in 250 ml IV PRN POTASSIUM CHL 10 mEq IVPB [Kcl Ivpb] Med 03/29/25 11:51 Active 10 meq in 100 ml IV 100 mls/hr POTASSIUM CHL 10 mEq IVPB [Kcl Ivpb] Med 03/29/25 11:51 Active 10 meq in 100 ml IV PRN Pantoprazole Inj [Protonix Inj] Med 03/30/25 09:00 Active 40 mg IVP QDAY Pantoprazole Inj [Protonix Inj] Med 03/29/25 11:06 Discontinued 40 mg IVP X1 ONE Pre-Mixed [Pre-mixed Bag] 1 bag Med 03/29/25 11:51 Ordered Insulin Reg 100 Units/100 ml [Myxredlin] 100 unit IV 0.1 unit/kg/hr Ringers Lactated 1000 ml [Lactated Ringers] 1,000 ml Med 03/29/25 11:51 Ordered Pot Chl Additive [KCl Additive] 20 meq IV 250 mls/hr Ringers Lactated 1000 ml [Lactated Ringers] 1,000 ml Med 03/29/25 11:51 Active Pot Chl Additive [KCl Additive] 40 meq IV 250 mls/hr Ringers Lactated 1000 ml [Lactated Ringers] 1,000 ml Med 03/29/25 10:45 Active IV 1,000 mls/hr Ringers Lactated 1000 ml [Lactated Ringers] 1,000 ml Med 03/29/25 11:00 Active IV 1,000 mls/hr Ringers Lactated 1000 ml [Lactated Ringers] 1,000 ml Med 03/29/25 11:51 Active IV 250 mls/hr Sodium Bicarb 8.4% SYR Med 03/29/25 11:51 Active 50 ml IV Q4HR PRN Sodium Chloride 0.9% 1000 ml [Ns] 1,000 ml Med 03/29/25 09:48 Discontinued IV 999 mls/hr Sodium Chloride 0.9% 250 ml [Ns] 250 ml Med 03/29/25 11:51 Active Sod Phos Additive [NaPhos Additive] 15 mmol IV 62.5 mls/hr cefTRIAXone/D5w 1gm IV premix [Rocephin/D5w 1gm IV Med 03/29/25 10:47 Discontinued premix] 1 gm in 50 ml IV X1 Code Status Routine Oth 03/29/25 11:48 Ordered Oxygen Delivery PRN RT 03/29/25 11:48 Active Vital Signs Vital signs: Vital Signs Temperature 97.7 F 03/29/25 09:46 Pulse Rate 121 H 03/29/25 09:46 Respiratory Rate 19 03/29/25 09:46 Blood Pressure 136/76 H 03/29/25 09:46 Pulse Oximetry (%) 100 03/29/25 09:46 Oxygen Delivery Method Room Air 03/29/25 09:46 Pulse ox is 100% on room air which is adequate. Abdominal Pain MDM MDM Narrative MDM Narrative:: Malika Zimmerman am scribing for and in the presence of Dr. Arellano. 29 year old female with a known history of type 1 diabetes and prior admissions for DKA presented to the ED BIBA from home with several days of vomiting and anorexia and abdominal pain no insulin treatment. No fever. No other complaints. Patient data External records reviewed:: [facility] previous records (I reviewed admission in October 2024 for DKA ) and EMS form Clinical information provided by:: patient and EMS Social determinants that could affect healthcare access:: substance use (Marijuana ) Patient has the following chronic illnesses:: Type 1 DM, hx of DKA How is presenting disease/condition affected by chronic disease/condition?: exacerbated by Evaluation data The following diagnostics were reviewed and interpreted by me:: lab results, radiology exam(s) and EKG tracing(s) (My interpretation of the EKG: Sinus tachycardia (123 bpm) with no ST-T changes. Ry Arellano MD) Lab and/or radiology exams considered but not ordered:: None Interpretation Summary: I reviewed all diagnostic test results: My interpretation of the EKG is: Sinus tachycardia (123 bpm) with no ST-T changes. My interpretation of the chest x-ray is: No active disease. Blood tests remarkable for WBC 35.3, ESR 55, anion gap 30, Glu 621, lactic acid 4.1, beta hydroxybutyrate 6.4, procalcitonin 4.46. ABG showed pH 7.23, pCO2 20, and pHCO3 8. UA showed 4+ glucose and 4+ ketones. UDS positive for opiates and marijuana (patient was given morphine here). Covid/Influenza negative. Medications / Prescriptions Medications or Prescriptions considered but not ordered:: None Medication administrations:: Medication Administration History Acetaminophen (Acetaminophen 325 Mg Tablet) 650 mg PO Q6H PRN PRN Reason: Fever >100.3 or pain 1-3 Stop: 04/28/25 11:47 Dextrose (Dextrose 50%-Water Inj 50 Ml Syringe) 25 ml IV PRNMRX1 PRN PRN Reason: Blood Sugar - Low Hydromorphone HCl (Hydromorphone Inj 2 Mg/Ml Vial) 0.5 mg IVP Q4H PRN PRN Reason: PAIN SCALE 4-10(Mod-Sev Stop: 04/03/25 11:47 Lactated Ringer's (Lactated Ringers) 1,000 mls @ 1,000 mls/hr IV .Q1H SULTANA Stop: 04/28/25 10:44 Last Admin: 03/29/25 11:22 Dose: 1,000 mls/hr Documented By: GM Insulin Human Regular (Myxredlin) 100 unit in 100 mls @ 5.978 mls/hr IV .[id number] PRN; Protocol PRN Reason: PER PROTOCOL Stop: 04/28/25 10:39 Last Admin: 03/29/25 11:29 Dose: 0.1 unit/kg/hr, 5.978 mls/hr Documented By: GERA Co-signed By: RANDY Lactated Ringer's (Lactated Ringers) 1,000 mls @ 1,000 mls/hr IV .Q1H SULTANA Stop: 04/28/25 10:59 Last Admin: 03/29/25 11:44 Dose: 1,000 mls/hr Documented By: GERA Potassium Chloride (Kcl Ivpb) 10 meq in 100 mls @ 100 mls/hr IV .Q1H PRN PRN Reason: IF POTASSIUM LESS THAN 3.3 Stop: 04/28/25 11:50 Magnesium Sulfate (Magnesium Sulfate Ivpb) 2 gm in 50 mls @ 25 mls/hr IV .Q2H PRN PRN Reason: PER DKA PROTOCOL Stop: 04/28/25 11:50 Insulin Human Regular 100 unit (/ IV Miscellaneous Supplies) 100 mls @ 5.978 mls/hr IV .[id number] PRN; Protocol PRN Reason: PER PROTOCOL Stop: 04/28/25 11:50 Dextrose/Lactated Ringer's (D5-Lr) 1,000 mls @ 250 mls/hr IV .Q4H PRN PRN Reason: PER PROTOCOL Stop: 04/28/25 11:50 Lactated Ringer's (Lactated Ringers) 1,000 mls @ 250 mls/hr IV .Q4H PRN PRN Reason: PER PROTOCOL Stop: 03/30/25 11:50 Potassium Chloride 20 meq/ (Lactated Ringer's) 1,010 mls @ 250 mls/hr IV .Q4H3M PRN PRN Reason: K LEVEL 3.3 TO 5.3mM/L Stop: 04/28/25 11:50 Potassium Chloride 40 meq/ (Lactated Ringer's) 1,020 mls @ 250 mls/hr IV .Q4H5M PRN PRN Reason: K LEVEL < 3.3 mM/L Stop: 04/28/25 11:50 Potassium Chloride 40 meq/ (Dextrose/Lactated Ringer's) 1,020 mls @ 250 mls/hr IV .Q4H5M PRN PRN Reason: K LEVEL < 3.3mM/L Stop: 04/28/25 11:50 Potassium Cl/Dextrose/Lact Ringer's (Kcl 20 Meq/L In D5-Lr) 20 meq in 1,000 mls @ 250 mls/hr IV .Q4H PRN PRN Reason: K LEVEL 3.3 TO 5.3 mM/L Stop: 04/28/25 11:50 Potassium Chloride (Kcl Ivpb) 10 meq in 100 mls @ 50 mls/hr IV PRN PRN PRN Reason: K LEVEL 3.3 to 5.3 & BG > 200 Stop: 04/28/25 11:50 Potassium Phosphate (Pot Phos 15 Mmol In Ns 250 Ml) 15 mmol in 250 mls @ 62.5 mls/hr IV PRN PRN PRN Reason: Phosphate <= 1mg/dL Stop: 04/28/25 11:50 Sodium Phosphate 15 mmol/ (Sodium Chloride) 255 mls @ 62.5 mls/hr IV .Q4H5M PRN PRN Reason: Phosphate <= 1mg/dL and K> than 5.3 Stop: 04/28/25 11:50 Ciprofloxacin/Dextrose (Cipro Ivpb) 400 mg in 200 mls @ 200 mls/hr IV Q12HR SULTANA Stop: 04/05/25 11:54 Ondansetron HCl (Ondansetron Inj 2 Mg/Ml Inj 2 Ml) 4 mg IVP Q6H PRN; Protocol PRN Reason: NAUSEA OR VOMITING Stop: 04/28/25 11:47 Pantoprazole Sodium (Pantoprazole Inj 40 Mg Vial) 40 mg IVP QDAY SULTANA Stop: 04/29/25 08:59 Sodium Bicarbonate (Sodium Bicarb Inj 8.4% Syr 50 Ml Syringe) 50 ml IV Q4HR PRN PRN Reason: For ph <= to 7.0 Stop: 04/28/25 11:50 Discontinued Medications Hydromorphone HCl (Hydromorphone Inj 2 Mg/Ml Vial) 0.5 mg IVP X1 ONE Stop: 03/29/25 11:12 Last Admin: 03/29/25 11:17 Dose: 0.5 mg Documented By: GERA Sodium Chloride (Ns) 1,000 mls @ 999 mls/hr IV .Q1H1M ONE Stop: 03/29/25 10:48 Last Infusion: 03/29/25 11:24 Dose: Infused Documented By: Admin: 03/29/25 10:18 Dose: 999 mls/hr Documented By: GM Ceftriaxone Sodium/Dextrose (Rocephin/D5w 1gm Iv Premix) 1 gm in 50 mls @ 100 mls/hr IV X1 ONE Stop: 03/29/25 11:16 Last Infusion: 03/29/25 11:29 Dose: Infused Documented By: Admin: 03/29/25 10:59 Dose: 100 mls/hr Documented By: GERA Insulin Human Regular (Insulin Hum Regular 1 Unit/0.01 Ml (Per Unit)) 10 unit IV X1 ONE; Protocol Stop: 03/29/25 09:49 Last Admin: 03/29/25 10:09 Dose: 10 unit Documented By: GERA Co-signed By: ALONDRA Morphine Sulfate (Morphine Sulf Inj 10 Mg/Ml Vial) 4 mg IVP X1 ONE Stop: 03/29/25 09:49 Last Admin: 03/29/25 10:12 Dose: 4 mg Documented By: GM Ondansetron HCl (Ondansetron Inj 2 Mg/Ml Inj 2 Ml) 4 mg IVP X1 ONE; Protocol Stop: 03/29/25 09:49 Last Admin: 03/29/25 10:12 Dose: 4 mg Documented By: GM Pantoprazole Sodium (Pantoprazole Inj 40 Mg Vial) 40 mg IVP X1 ONE Stop: 03/29/25 11:07 Last Admin: 03/29/25 11:15 Dose: 40 mg Documented By: GERA Treatment from me here included: IV fluids, insulin, morphine, zofran, rocephin. Consultations Consultation(s) initiated? (list below): Yes Consultation #1 (Physician, Specialty, Details): I spoke with client service representative as noted above. At this time pending urine and CMP. Time: 10:46 Diagnosis Differential diagnosis abdominal pain: abdominal pain, acute appendicitis, calculus of kidney, constipation, diverticulitis, endometriosis, gastroenteritis, pancreatitis, small bowel obstruction and other (DKA ) Most likely diagnosis given after review of the tests above:: DKA Admission Indicated Admission indicated?: indicated Explain why admission is indicated or not indicated:: DKA Admission Request Was there a request for admission?: Yes Admission Attestation Admission request attestation: Discussed case with ICU service regarding admission. Discussed patients ED course, exam findings, labs, and radiology results. Agrees to accept the patient for admission. Disposition Plan Disposition Plan: Admit Critical Care Time Critical Care Time Critical Care Time: Yes Total Critical Care Time (min.): 36 Attestation: Due to a high probability of clinically significant, life threatening deterioration, the patient required my highest level of preparedness to intervene emergently and I personally spent this critical care time directly and personally managing the patient. This critical care time included obtaining a history; examining the patient; ordering and review of studies; arranging urgent treatment with development of a management plan; evaluation of patient's response to treatment; frequent reassessment; and discussions with family and other providers. It was exclusive of separately billable procedures and treating other patients and teaching time. Ry Arellano MD Discharge Plan Plan Patient Disposition: Admit Acute Care w/in Hospital Prescriptions/Referrals Prescriptions/Med Rec: No Action (DME) lancet-gluc [id number] Kit See Rx Instructions .Route Qty: 1 1RF Rx Instructions: As directed insulin degludec [Tresiba FlexTouch U-100] 100 unit/mL (3 mL) insulin pen 20 unit subcut HS Qty: 15 4RF (DME) blood-glucose meter [Blood Glucose Monitoring] Kit See Rx Instructions .Route Qty: 1 0RF Rx Instructions: As directed (DME) Blood Glucose Test Strip See Rx Instructions .Route Qty: 50 0RF Rx Instructions: As directed (DME) insulin syringe-needle U-100 [Ultra-Thin II Insulin Syringe] 1 mL 29 gauge x 1/2 syringe See Rx Instructions .Route Qty: 100 0RF Rx Instructions: As directed Gvoke 1 mg/0.2 mL solution 1 mg subcut Q20M PRN (Reason: hypoglycemia) Qty: 0.2 0RF Rx Instructions: until target blood sugar attained pantoprazole 40 mg tablet,delayed release (DR/EC) 40 mg PO QDAY Qty: 14 0RF metoclopramide HCl [Reglan] 10 mg tablet 10 mg PO Q6H PRN (Reason: nausea and vomiting) Qty: 60 0RF Referrals: Chance Godinez PA-C [Primary Care Provider] - In 1 week Problem List Clinical Impression: DKA (diabetic ketoacidosis) Patient/Caregiver Discharge Instructions Print Language: Yi Stand Alone Forms: [facility] Award Info., Patient Portal Info Letter
[2025-03-29] MEDS: INSULIN HUM REGULAR 1 UNIT/0.01 ML (PER UNIT) 10 UNIT IV (10:09)
[2025-03-29] MEDS: ONDANSETRON INJ 2 MG/ML INJ 2 ML 4 MG IVP ×2 (10:12→14:02)
[2025-03-29] MEDS: MORPHINE SULF INJ 10 MG/ML VIAL 4 MG IVP (10:12)
[2025-03-29] MEDS: SODIUM CHLORIDE 0.9% 1000 ML 1,000 ML 999 ML IV (10:18)
[2025-03-29 10:23] LABS: Hematocrit 42.3 % (36.0-46.0); Mean Corpuscular HGB Conc 33.1 g/dl (31.0-37.0); Mean Corpuscular Hemoglobin 27.7 pg (25.0-35.0); Mean Corpuscular Volume 84 fL (80-100); Monocytes # (Auto) 1.1 Thou/mm3 (0.0-0.8); Nucleated Red Blood Cell % 0 /100 WBC (0); Platelet Count 372 Thou/mm3 (140-440); RDW Standard Deviation 44.1 fL (36.4-46.3); Red Blood Count 5.06 Miln/mm3 (4.00-5.20)
[2025-03-29 10:24] LABS: Beta Hydroxybutyrate 6.4 mmol/L (<0.6); Lactate (Lactic Acid) 4.1 mMol/L (0.4-2.0)
[2025-03-29 10:25] LABS: Base Excess -17 (-3-3); HCO3 8 mEq/L (20-26); Inspired Oxygen, FIO2 21 %; O2 Saturation 99 % (91-98); PCO2 20 mmHg (32.0-48.0); PO2 112 mmHg (83-108); pH, Arterial 7.23 (7.35-7.45)
[2025-03-29 10:27] LABS: Allen Test Performed/OK; Puncture Site Right Radial
[2025-03-29 10:29] LABS: White Blood Count 35.3 Thou/mm3 (3.6-11.0)
[2025-03-29 10:37] LABS: B-Type Natriuretic Peptide 26 pg/mL (0-100)
[2025-03-29 10:38] LABS: Sed Rate (ESR) 55 mm/hr (0-20)
[2025-03-29 10:41] LABS: Partial Thromboplastin Time 25.1 Seconds (22.0-36.0)
[2025-03-29 10:48] LABS: Alanine Aminotransferase 36 U/L (10-49); Albumin, Serum 4.9 gm/dL (3.5-5.0); Albumin/Globulin Ratio 1.7 (1.2-2.2); Alcohol, Blood Medical < 3.0 mg/dL (0-10.0); Alkaline Phosphatase 122 U/L (46-116); Amylase 39 U/L (30-118); Anion Gap 30 (7-16); Aspartate Amino Transferase 27 U/L (0-34); BUN/Creatinine Ratio 13 Ratio (12-20); Bilirubin,Direct 0.2 mg/dL (0.0-0.3); Bilirubin,Total 0.6 mg/dL (0.3-1.2); Blood Urea Nitrogen 21 mg/dL (9-23); C-Reactive Protein 0.6 mg/dL (0.0-0.9); Calcium 9.9 mg/dL (8.3-10.6); Calcium (Corrected) 9.9 mg/dL (8.5-10.1); Chloride 91 mMol/L (98-107); Creatinine (Component) 1.6 mg/dL (0.6-1.3); Free T4 (Free Thyroxine) 1.35 ng/dL (0.89-1.76); Globulin 2.9 gm/dL (2.3-3.5); Lipase 23 U/L (12-53); Magnesium 1.9 mg/dL (1.6-2.6); Osmolality,Calculated 294 (275-295); Potassium 4.5 mMol/L (3.4-5.1); Procalcitonin 4.46 ng/ml (0.0-0.49); Sodium 131 mMol/L (136-145); Thyroid Stimulating Hormone 0.53 uIU/mL (0.55-4.78); Total Protein 7.8 gm/dL (5.7-8.2); Troponin I < 0.002 ng/mL (0.0-0.045); eGFR 45 See Note
[2025-03-29 10:51] LABS: Glucose Estimated Average 260 mg/dL (80-131); Hemoglobin A1C 10.7 % Hgb (4.8-6.0)
[2025-03-29 10:54] LABS: Carbon Dioxide 10.5 mMol/L (20.0-31.0); Glucose 621 mg/dL (74-106)
[2025-03-29] MEDS: cefTRIAXone/D5w 1gm IV premix 1 GM/50 ML BAG IV (10:59)
[2025-03-29 11:01] LABS: HCG,Qualitative Serum Negative
[2025-03-29 11:03] LABS: Collection Type, Urine Clean Catch
[2025-03-29] MEDS: PANTOPRAZOLE INJ 40 MG VIAL IVP (11:15)
[2025-03-29] MEDS: HYDROmorphone INJ 2 MG/ML VIAL 0.5 MG IVP ×3 (11:17→20:30)
[2025-03-29] MEDS: RINGERS LACTATED 1000 ML 1,000 ML IV ×2 (11:22→11:44)
[2025-03-29 11:23] LABS: HCG Qualitative,Urine Negative
[2025-03-29 11:28] LABS: Bilirubin,Urine Negative (Negative); Blood,Urine Negative (Negative); Clarity,Urine Clear (Clear/Hazy); Color,Urine Colorless (Lt Yel-Yel); Culture Indicated,Urine Not Indicated; Glucose, Urine 4+ (Negative); Hyaline Casts,Urine < 1 /hpf (0-1); Ketones,Urine 4+ (Negative); Leukocyte Esterase,Urine Negative (Negative); Nitrite,Urine Negative (Negative); Protein,Urine Negative (Neg - Trace); RBC,Urine < 1 /hpf (0-3); Specific Gravity,Urine 1.024 (1.001-1.035); Squamous Epithelial Cell,Urine 1 /hpf (0-5); Urobilinogen,Urine Negative mg/dL (0.0-1.0); WBC,Urine 1 /hpf (0-5)
[2025-03-29] MEDS: INSULIN REG 100 UNITS/100 ML 100 UNIT/100 ML BAG 5.978 UNIT IV (11:29)
[2025-03-29 11:33] LABS: Amphetamine/Methamp Scrn,U Negative (Negative); Barbiturate Screen,Urine Negative (Negative); Benzodiazepines Screen,Urine Negative (Negative); Benzoylecgonine Screen, Ur Negative (Negative); Fentanyl Screen,Urine Negative (Negative); Opiate Screen,Urine Positive (Negative); THC Screen,Urine Positive (Negative)
--- NOTE | 2025-03-29 11:33 | PC.NURSE ---
DR. ROLAND AT BEDSIDE ASSESSING PT.
[2025-03-29 11:42] LABS: Band Neutrophils (Manual) 6 % (0-6); Lymphocytes (Manual) 6 % (20-44); Monocytes (Manual) 3 % (2-9); Neutrophils (Manual) 85 % (50-70); Path Review Blood Smear Sent to Pathologist
[2025-03-29 11:43] LABS: Phosphorous 4.6 mg/dL (2.4-5.1)
--- NOTE | 2025-03-29 11:57 | ESHP_ITS ---
<Statement entered by Zaina Sanders MD - 03/29/25 20:11> TOTAL CC TIME: 65MIN I saw and evaluated the patient. I reviewed the resident?s note and agree with findings and plan as documented in the resident?s note. Upon my evaluation, this patient had a high probability of imminent or life- threatening deterioration due to DKA, YUMIKO which required my direct attention, intervention, and personal management. This time is exclusive of time spent on procedures, which are documented separately if performed. seen and examined in ED #1 Was somnolent post dilaudid but arousable and appropriate asked her about pressure like lesions along spinal processes - she attributes to laying bathtub - (warm water makes her feel better) denied an extensive ROS to help us ID a specific source of infx - but i'm concerned b/c of wbc >30K - which is also OOP to her prior admits w/ DKA she does have loose stools - but she denies blood in stool, or abd pain (on my exam). we have started cipro - if she is not improving (LA increases, fevers, worsening diarrhea or new abd pain, etc - we will broaden abx) - send stool for clx copious IVFs + insulin gtt monitor GFR - avoid nephrotxic agents (likely pre-renal) but w/ poorly controlled IDDM - she will need outpt f/u with controls designer. Documentation for date of: 03/29/25 HPI History of Present Illness Chief complaint: vomiting, diarrhea History of present illness: HPI: Patient is a 29-year-old female past medical history significant for insulin- dependent diabetes mellitus type 1 [10.7%], diabetic gastroparesis and chronic medication noncompliance resulted in multiple admissions to the ICU per year since 2017 for DKA presenting today with a chief complaint of vomiting and diarrhea. Patient said that 4 days ago for which she developed watery diarrhea, denied any blood, mucus, melena. At the same time she developed multiple episodes of vomiting per day described as food contents at first then became watery. She also had associated 10/10 epigastric and substernal buring pain. Denied any hematemesis, coffee-ground emesis, bile emesis, fever and sick contacts. Also denied any dental abscesses or perineal or sacral abscesses. Patient says that she sometimes forgets to take her insulin at night. She also uses a Dexcom sensor for her blood glucose, but this fell off at the same time 4 days ago. ED course: BP 126/76, pulse 121, RR 19, temp 97, SpO2 100% on room air. Labs showed WBC 35.4, PLT 370, HbA1c 10% percent, LA 4.1, P hydroxybutyrate 6.4, BUN 21, CR 1.6, glucose 621, AG 13, Pro-Dustin 4.46. Urinalysis showed 4+ glucose, 4+ ketones, leukocyte Estrace negative. Chest x-ray showed no signs of consolidation, pulmonary edema or pleural effusion. In the ED patient received insulin 10 units IV x 1, morphine 4 Mg IV x 1, ondansetron 4 Mg IV x 1, normal saline 1L IVF bolus, ceftriaxone 1 g IV x 1, hydromorphone 0.5 Mg IV x 1 and pantoprazole 40 Mg IV x 1. Patient admitted to the ICU for treatment and management of DKA secondary to medication noncompliance and infectious diarrhea. Review of Systems Review of Systems Narrative Review of Systems: GENERAL: Denies fever/chills or diaphoresis. HEENT: Denies headaches or visual changes. Denies discharge. Neuro: Denies unusual weakness or difficulty speaking. CARDIO: Denies chest pain or palpitations. PULM: Denies SOB, coughing or wheezing. GI: As above URO: Denies burning/itching/pain/urinary changes. M[employer]ION [employer]NER: Denies menstrual changes, hot flashes. MSK/EXT/SKIN: Denies joint/skeletal/muscle pain, issues/changes in upper or lower extremities, itchiness, or superficial pain. PSYCH: Cooperative, pleasant mood & affect. The rest of the review of systems is otherwise negative. Past Medical History Past Medical History Comments PMH COMMENT: Past medical history: Type I IDDM?diagnosed at 12 Diabetic gastroparesis Medication list: Insulin Tresiba 20U SC at bedtime Metoclopramide 10 Mg p.o. every 6 hourly as needed Pantoprazole 40 Mg p.o. daily She woke 1 Mg SC q. 20 minutes. Past surgical history: x 3 Allergies: NKFDA Social history: Patient lives at home with her ,children and stepmother. Endorses smoking both tobacco and marijuana. Denies using any other recreational drugs Family History: No significant history Exam Vital Signs Temp Pulse Resp BP Pulse Ox O2 Del Method 97.7 F 116 H 26 H 115/79 100 Room Air 03/29/25 09:46 03/29/25 11:03 03/29/25 11:03 03/29/25 11:03 03/29/25 11:03 03/29/25 09:46 Results: Labs 03/29/25 10:11 03/29/25 10:11 Labs: Short CBC 03/29/25 Range/Units 10:11 WBC 35.3 H* (3.6-11.0) Thou/mm3 Hgb 14.0 (12.0-16.0) g/dL Hct 42.3 (36.0-46.0) % Plt Count 372 (140-440) Thou/mm3 BMP 03/29/25 10:11 Sodium 131 L Potassium 4.5 Chloride 91 L Carbon Dioxide 10.5 L* BUN 21 Creatinine 1.6 H Glucose 621 H* Calcium 9.9 Cardiac Enzymes 03/29/25 Range/Units 10:11 Troponin I < 0.002 (0.0-0.045) ng/mL Liver Function 03/29/25 Range/Units 10:11 Total Bilirubin 0.6 (0.3-1.2) mg/dL Direct Bilirubin 0.2 (0.0-0.3) mg/dL AST 27 (0-34) U/L ALT 36 (10-49) U/L Alkaline Phosphatase 122 H (46-116) U/L Albumin 4.9 (3.5-5.0) gm/dL Urine 03/29/25 Range/Units 10:54 Urine Color Colorless A (Lt Yel-Yel) Urine Clarity Clear (Clear/Hazy) Urine pH 5.0 (5.0-7.0) Ur Specific [place] 1.024 (1.001-1.035) Urine Protein Negative (Neg - Trace) Urine Glucose (UA) 4+ A (Negative) ABG Interpretation ABG results: 03/29/25 10:19 ABG pH 7.23 L ABG pCO2 20 L ABG pO2 112 H ABG HCO3 8 L* ABG O2 Saturation 99 H ABG Base Excess -17 L Quality Measures Quality Measures sepsis Current suspected stage: ruled out Possible source: unknown Blood cultures ordered: completed in ED Antibiotic ordered: Yes Medications Home Medications and Allergies Allergies Allergy/AdvReac Type Severity Reaction Status Date / Time No Known Allergies Allergy Verified 10/15/24 17:30 Visit Medications Acetaminophen (Acetaminophen 325 Mg Tablet) 650 mg PO Q6H PRN PRN Reason: Fever >100.3 or pain 1-3 Stop: 04/28/25 11:47 Dextrose (Dextrose 50%-Water Inj 50 Ml Syringe) 25 ml IV [id number] PRN PRN Reason: Blood Sugar - Low Hydromorphone HCl (Hydromorphone Inj 2 Mg/Ml Vial) 0.5 mg IVP Q4H PRN PRN Reason: PAIN SCALE 4-10(Mod-Sev Stop: 04/03/25 11:47 Lactated Ringer's (Lactated Ringers) 1,000 mls @ 1,000 mls/hr IV .Q1H SULTANA Stop: 04/28/25 10:44 Last Admin: 03/29/25 11:22 Dose: 1,000 mls/hr Insulin Human Regular (Myxredlin) 100 unit in 100 mls @ 5.978 mls/hr IV .[id number] PRN; Protocol PRN Reason: PER PROTOCOL Stop: 04/28/25 10:39 Last Admin: 03/29/25 11:29 Dose: 0.1 unit/kg/hr, 5.978 mls/hr Lactated Ringer's (Lactated Ringers) 1,000 mls @ 1,000 mls/hr IV .Q1H SULTANA Stop: 04/28/25 10:59 Last Admin: 03/29/25 11:44 Dose: 1,000 mls/hr Potassium Chloride (Kcl Ivpb) 10 meq in 100 mls @ 100 mls/hr IV .Q1H PRN PRN Reason: IF POTASSIUM LESS THAN 3.3 Stop: 04/28/25 11:50 Magnesium Sulfate (Magnesium Sulfate Ivpb) 2 gm in 50 mls @ 25 mls/hr IV .Q2H PRN PRN Reason: PER DKA PROTOCOL Stop: 04/28/25 11:50 Insulin Human Regular 100 unit (/ IV Miscellaneous Supplies) 100 mls @ 5.978 mls/hr IV .[id number] PRN; Protocol PRN Reason: PER PROTOCOL Stop: 04/28/25 11:50 Dextrose/Lactated Ringer's (D5-Lr) 1,000 mls @ 250 mls/hr IV .Q4H PRN PRN Reason: PER PROTOCOL Stop: 04/28/25 11:50 Lactated Ringer's (Lactated Ringers) 1,000 mls @ 250 mls/hr IV .Q4H PRN PRN Reason: PER PROTOCOL Stop: 03/30/25 11:50 Potassium Chloride 20 meq/ (Lactated Ringer's) 1,010 mls @ 250 mls/hr IV .Q4H3M PRN PRN Reason: K LEVEL 3.3 TO 5.3mM/L Stop: 04/28/25 11:50 Potassium Chloride 40 meq/ (Lactated Ringer's) 1,020 mls @ 250 mls/hr IV .Q4H5M PRN PRN Reason: K LEVEL < 3.3 mM/L Stop: 04/28/25 11:50 Potassium Chloride 40 meq/ (Dextrose/Lactated Ringer's) 1,020 mls @ 250 mls/hr IV .Q4H5M PRN PRN Reason: K LEVEL < 3.3mM/L Stop: 04/28/25 11:50 Potassium Cl/Dextrose/Lact Ringer's (Kcl 20 Meq/L In D5-Lr) 20 meq in 1,000 mls @ 250 mls/hr IV .Q4H PRN PRN Reason: K LEVEL 3.3 TO 5.3 mM/L Stop: 04/28/25 11:50 Potassium Chloride (Kcl Ivpb) 10 meq in 100 mls @ 50 mls/hr IV PRN PRN PRN Reason: K LEVEL 3.3 to 5.3 & BG > 200 Stop: 04/28/25 11:50 Potassium Phosphate (Pot Phos 15 Mmol In Ns 250 Ml) 15 mmol in 250 mls @ 62.5 mls/hr IV PRN PRN PRN Reason: Phosphate <= 1mg/dL Stop: 04/28/25 11:50 Sodium Phosphate 15 mmol/ (Sodium Chloride) 255 mls @ 62.5 mls/hr IV .Q4H5M PRN PRN Reason: Phosphate <= 1mg/dL and K> than 5.3 Stop: 04/28/25 11:50 Ciprofloxacin/Dextrose (Cipro Ivpb) 400 mg in 200 mls @ 200 mls/hr IV Q12HR [facility] Stop: 04/05/25 11:54 Ondansetron HCl (Ondansetron Inj 2 Mg/Ml Inj 2 Ml) 4 mg IVP Q6H PRN; Protocol PRN Reason: NAUSEA OR VOMITING Stop: 04/28/25 11:47 Pantoprazole Sodium (Pantoprazole Inj 40 Mg Vial) 40 mg IVP QDAY SULTANA Stop: 04/29/25 08:59 Sodium Bicarbonate (Sodium Bicarb Inj 8.4% Syr 50 Ml Syringe) 50 ml IV Q4HR PRN PRN Reason: For ph <= to 7.0 Stop: 04/28/25 11:50 Discontinued Medications Hydromorphone HCl (Hydromorphone Inj 2 Mg/Ml Vial) 0.5 mg IVP X1 ONE Stop: 03/29/25 11:12 Last Admin: 03/29/25 11:17 Dose: 0.5 mg Sodium Chloride (Ns) 1,000 mls @ 999 mls/hr IV .Q1H1M ONE Stop: 03/29/25 10:48 Last Infusion: 03/29/25 11:24 Dose: Infused Ceftriaxone Sodium/Dextrose (Rocephin/D5w 1gm Iv Premix) 1 gm in 50 mls @ 100 mls/hr IV X1 ONE Stop: 03/29/25 11:16 Last Infusion: 03/29/25 11:29 Dose: Infused Insulin Human Regular (Insulin Hum Regular 1 Unit/0.01 Ml (Per Unit)) 10 unit IV X1 ONE; Protocol Stop: 03/29/25 09:49 Last Admin: 03/29/25 10:09 Dose: 10 unit Morphine Sulfate (Morphine Sulf Inj 10 Mg/Ml Vial) 4 mg IVP X1 ONE Stop: 03/29/25 09:49 Last Admin: 03/29/25 10:12 Dose: 4 mg Ondansetron HCl (Ondansetron Inj 2 Mg/Ml Inj 2 Ml) 4 mg IVP X1 ONE; Protocol Stop: 03/29/25 09:49 Last Admin: 03/29/25 10:12 Dose: 4 mg Pantoprazole Sodium (Pantoprazole Inj 40 Mg Vial) 40 mg IVP X1 ONE Stop: 03/29/25 11:07 Last Admin: 03/29/25 11:15 Dose: 40 mg Assessment & Plan Plan Patient is a 29-year-old female past medical history significant for insulin- dependent diabetes mellitus type 1 [10.7%], diabetic gastroparesis and chronic medication noncompliance resulted in multiple admissions to the ICU per year since 2017 for DKA presenting today with a chief complaint of vomiting and diarrhea. Patient admitted to the ICU for treatment and management of DKA secondary to medication noncompliance and infectious diarrhea. ENDO DKA secondary to medication noncompliance Insulin-dependent diabetes mellitus type 1 Dx:pH 7.23, pCO2 20, bicarb 20.5. AG 30. LA 4.1. Beta hydroxybutyrate 6.4. Glucose 621 Rx: Insulin infusion. LR IVF as per protocol. Replete electrolytes as necessary RRX: Follow up on renal panel for anion gap. GI/Hep Diarrhea DDx: viral, bacterial, metoclopramide side effect Dx: Pro-Dustin 4.46 Rx: stool culture, wbc's, giardia, norovirus ordered RRX: Follow up on cultures Nausea and Vomiting DDx: in setting of DKA Rx: Ondansetron 4mg IV q 4hrly as needed RENAL Acute kidney injury likely prerenal DDx: Secondary to dehydration from vomiting and DKA Dx: Baseline 0.8. On admission CR 1.6 Rx: Fluids as per DKA protocol. Renal panels every 4 hourly. Avoid nephrotoxic agents RRX: Follow-up on renal panels. HAGMA Lactic acidosis DDx: DKA, dehydration Dx: pH 7.23, pCO2 20, bicarb 20.5. AG 30. LA 4.1 Rx: Treat underlying cause. Trend lactic Q8 hourly RRX: Follow-up on lactate HEME/ONC Leukocytosis DDx: Vomiting, DKA, infectious diarrhea Dx: WBC 35.3 Rx: Ciprofloxacin 400 Mg IV Q 12 hourly. Follow-up on CBC NEURO No acute problems CVS No acute problems PULM No Acute Problems ID See GI MSK/DERM No acute problems ICU Health maintenance: Dispo: Admit to ICU for DKA Diet: NPO DVT ppx: Enoxaparin 40mg SC daily GI ppx: Protonix 40mg qD IV lines: 2 pIV Central line: No Arterial line: No Adams: No Code status: FULL CODE Plan of care discussed with Attending Dr.Malli Chadwick Burks MD PGY 1 Disclaimer: This note was dictated by speech recognition. Minor errors in financial services assistant may be present due to voice recognition software.
[2025-03-29 13:14] LABS: Reflex Lactate? Y
[2025-03-29] MEDS: POT CHL ADDITIVE 20 MEQ in RINGERS LACTATED 1000 ML 1,000 ML 250 MEQ IV (13:35)
[2025-03-29 13:56] LABS: Lactic Acid, 3 HR 1.7 mMol/L (0.4-2.0)
[2025-03-29] MEDS: CIPROFLOXACIN/D5w 400 MG IVPB 400 MG/200 ML BAG 200 MG IV ×2 (13:56→20:31)
[2025-03-29] MEDS: ENOXAPARIN SOD INJ 40 MG/0.4 ML SYRINGE SC (13:56)
[2025-03-29] MEDS: MG HYD/AL HYD/SIME (Maalox Reg) SUSP 30 ML UDC PO (14:18)
[2025-03-29] MEDS: HYOSCYAMINE SULF 0.125 MG TAB.SUBL 0.25 MG PO (14:21)
[2025-03-29] MEDS: LACTOBACILLUS RHAMNOSUS 1 CAP PO (14:21)
[2025-03-29] MEDS: metroNIDAZOLE/NS 500 MG IVPB 500 MG/100 ML BAG 200 MG IV ×2 (14:48→22:06)
[2025-03-29 15:00] LABS: Neutrophils # (Auto) 32.1 Thou/mm3 (1.8-7.7)
[2025-03-29 15:01] LABS: Lymphocytes # (Auto) 2.2 Thou/mm3 (1.0-4.8)
[2025-03-29 15:03] LABS: Immature Granulocytes % (Auto) 0 % (0-0)
[2025-03-29] MEDS: KCL 20 mEq/L in D5-LR 20 MEQ/1,000 ML BAG 250 MEQ IV ×2 (15:07→19:41)
[2025-03-29 16:34] LABS: Lactate (Lactic Acid) 1.1 mMol/L (0.4-2.0)
[2025-03-29 17:00] LABS: Albumin, Serum 3.7 gm/dL (3.5-5.0); Anion Gap 10 (7-16); BUN/Creatinine Ratio 16 Ratio (12-20); Blood Urea Nitrogen 16 mg/dL (9-23); Calcium 8.2 mg/dL (8.3-10.6); Calcium (Corrected) 8.4 mg/dL (8.5-10.1); Carbon Dioxide 20.7 mMol/L (20.0-31.0); Chloride 106 mMol/L (98-107); Estimated Creatinine Clearance 78.4 mL/min (>60); Glucose 197 mg/dL (74-106); Magnesium 1.3 mg/dL (1.6-2.6); Osmolality,Calculated 280 (275-295); Phosphorous 1.7 mg/dL (2.4-5.1); Potassium 4.1 mMol/L (3.4-5.1); Sodium 137 mMol/L (136-145); eGFR > 60 See Note
--- NOTE | 2025-03-29 17:17 | PC.NURSE ---
Patient brought to ICU for DKA. Pt currently on insulin gtt and IV fluids. Pt is crying and c/o abdominal pain after she has been throwing up at home, emesis is yellowish in color, no blood noted. Reported that she had missed placed her insulin so she hasnt been taking it. Patient is alert and oriented, skin has some old scarring but no active open wounds. ED RN reported that patient had not voided for her stay in ED.
[2025-03-29] MEDS: Magnesium Sulfate 2 GM Ivpb 2 GM/50 ML BAG IV (17:31)
[2025-03-29] MEDS: METOCLOPRAMIDE INJ 5 MG/ML VIAL 2 ML 10 MG IVP (17:31)
[2025-03-29] MEDS: SCOPOLAMINE 1 MG TDSY TOP (17:31)
[2025-03-29] MEDS: SUCRALFATE SUSP 1 GM/10 ML UDC PO (19:24)
[2025-03-29] MEDS: Magnesium Sulfate 4 GM Ivpb 4 GM/50 ML BAG IV (19:24)
[2025-03-29 20:44] LABS: Albumin, Serum 3.2 gm/dL (3.5-5.0); Anion Gap 8 (7-16); BUN/Creatinine Ratio 16 Ratio (12-20); Blood Urea Nitrogen 14 mg/dL (9-23); Calcium 8.2 mg/dL (8.3-10.6); Calcium (Corrected) 8.8 mg/dL (8.5-10.1); Carbon Dioxide 23.8 mMol/L (20.0-31.0); Chloride 105 mMol/L (98-107); Creatinine (Component) 0.9 mg/dL (0.6-1.3); Estimated Creatinine Clearance 87.1 mL/min (>60); Glucose 198 mg/dL (74-106); Magnesium 2.2 mg/dL (1.6-2.6); Osmolality,Calculated 280 (275-295); Potassium 3.6 mMol/L (3.4-5.1); Sodium 137 mMol/L (136-145); eGFR > 60 See Note
[2025-03-29] MEDS: DEXTROSE 5%-LACTATED RINGERS 1,000 ML 250 ML IV (22:11)
[2025-03-29] MEDS: POT PHOS 15 mMol in NS 250 ML 15 MMOL/250 ML BAG 62.5 MMOL IV (22:11)
--- NOTE | 2025-03-29 23:01 | PC.NURSE ---
2150 Md made aware of pts lab results with 2nd closed gap. MD ordered to continue insulin drip and DKA Protocol.
[2025-03-29 23:32] LABS: Basophils # (Auto) 0.1 Thou/mm3 (0.0-0.2); Basophils % (Auto) 0 % (0-2.5); Eosinophils # (Auto) 0.2 Thou/mm3 (0.0-0.5); Eosinophils % (Auto) 1 % (0-10); Immature Granulocytes % (Auto) 1 % (0-0); Lymphocytes # (Auto) 1.8 Thou/mm3 (1.0-4.8); Lymphocytes % (Auto) 11 % (10-50); Mean Corpuscular HGB Conc 34.4 g/dl (31.0-37.0); Mean Corpuscular Hemoglobin 27.8 pg (25.0-35.0); Mean Corpuscular Volume 81 fL (80-100); Monocytes # (Auto) 1.4 Thou/mm3 (0.0-0.8); Monocytes % (Auto) 8 % (0-12); Neutrophils # (Auto) 12.8 Thou/mm3 (1.8-7.7); Neutrophils % (Auto) 78 % (37-80); Nucleated Red Blood Cell % 0 /100 WBC (0); RDW Standard Deviation 41.1 fL (36.4-46.3); Red Blood Count 3.88 Miln/mm3 (4.00-5.20)
[2025-03-29 23:40] LABS: Hematocrit 31.4 % (36.0-46.0); Hemoglobin 10.8 g/dL (12.0-16.0); White Blood Count 16.5 Thou/mm3 (3.6-11.0)
[2025-03-29 23:41] LABS: Platelet Count 242 Thou/mm3 (140-440)
[2025-03-30] VITALS (16 sets, daily range): BP systolic 94–131; BP diastolic 56–89; PULSE 60–96; RESP 13–99; TEMP 36.8–37.3; O2SAT 95–100; BMI 22.8; BMI 23.8
[2025-03-30 00:39] LABS: Lactate (Lactic Acid) 0.7 mMol/L (0.4-2.0)
[2025-03-30 01:24] LABS: Albumin, Serum 2.9 gm/dL (3.5-5.0); Anion Gap 8 (7-16); BUN/Creatinine Ratio 18 Ratio (12-20); Blood Urea Nitrogen 14 mg/dL (9-23); Calcium 7.4 mg/dL (8.3-10.6); Calcium (Corrected) 8.3 mg/dL (8.5-10.1); Carbon Dioxide 24.5 mMol/L (20.0-31.0); Chloride 107 mMol/L (98-107); Creatinine (Component) 0.8 mg/dL (0.6-1.3); Glucose 206 mg/dL (74-106); Magnesium 2.2 mg/dL (1.6-2.6); Osmolality,Calculated 284 (275-295); Phosphorous 1.9 mg/dL (2.4-5.1); Potassium 4.2 mMol/L (3.4-5.1); Sodium 139 mMol/L (136-145); eGFR > 60 See Note
[2025-03-30] MEDS: HYDROmorphone INJ 2 MG/ML VIAL 0.5 MG IVP ×2 (02:10→09:13)
[2025-03-30] MEDS: ONDANSETRON INJ 2 MG/ML INJ 2 ML 4 MG IVP ×2 (02:11→08:34)
[2025-03-30] MEDS: KCL 20 mEq/L in D5-LR 20 MEQ/1,000 ML BAG 250 MEQ IV (04:13)
[2025-03-30] MEDS: metroNIDAZOLE/NS 500 MG IVPB 500 MG/100 ML BAG 200 MG IV (05:05)
[2025-03-30 05:34] LABS: Basophils % (Auto) 0 % (0-2.5); Eosinophils # (Auto) 0.2 Thou/mm3 (0.0-0.5); Eosinophils % (Auto) 2 % (0-10); Hematocrit 30.7 % (36.0-46.0); Hemoglobin 10.6 g/dL (12.0-16.0); Immature Granulocytes % (Auto) 0 % (0-0); Immature Granulocytes Auto 0.03 Thou/mm3 (0.00-0.00); Lymphocytes # (Auto) 1.3 Thou/mm3 (1.0-4.8); Lymphocytes % (Auto) 12 % (10-50); Mean Corpuscular HGB Conc 34.5 g/dl (31.0-37.0); Mean Corpuscular Volume 81 fL (80-100); Monocytes # (Auto) 0.8 Thou/mm3 (0.0-0.8); Monocytes % (Auto) 7 % (0-12); Neutrophils # (Auto) 8.4 Thou/mm3 (1.8-7.7); Neutrophils % (Auto) 78 % (37-80); Nucleated Red Blood Cell % 0 /100 WBC (0); Platelet Count 261 Thou/mm3 (140-440); RDW Standard Deviation 41.2 fL (36.4-46.3); Red Blood Count 3.79 Miln/mm3 (4.00-5.20); White Blood Count 10.7 Thou/mm3 (3.6-11.0)
[2025-03-30 06:07] LABS: Anion Gap 8 (7-16); BUN/Creatinine Ratio 18 Ratio (12-20); Blood Urea Nitrogen 14 mg/dL (9-23); Calcium 7.6 mg/dL (8.3-10.6); Calcium (Corrected) 8.4 mg/dL (8.5-10.1); Carbon Dioxide 25.6 mMol/L (20.0-31.0); Chloride 108 mMol/L (98-107); Creatinine (Component) 0.8 mg/dL (0.6-1.3); Glucose 129 mg/dL (74-106); Magnesium 2.1 mg/dL (1.6-2.6); Osmolality,Calculated 285 (275-295); Phosphorous 1.4 mg/dL (2.4-5.1); Potassium 3.8 mMol/L (3.4-5.1); Sodium 142 mMol/L (136-145); eGFR > 60 See Note
--- NOTE | 2025-03-30 08:05 | PD.RESPRO ---
Documentation for date of: 03/30/25 Subjective Subjective Interval history: Patient is a 29-year-old female past medical history significant for insulin-dependent diabetes mellitus type 1 [10.7%], diabetic gastroparesis and chronic medication noncompliance resulted in multiple admissions to the ICU per year since 2017 for DKA presenting today with a chief complaint of vomiting and diarrhea. Patient said that 4 days ago for which she developed watery diarrhea, denied any blood, mucus, melena. At the same time she developed multiple episodes of vomiting per day described as food contents at first then became watery. She also had associated 10/10 epigastric and substernal buring pain. Denied any hematemesis, coffee-ground emesis, bile emesis, fever and sick contacts. Also denied any dental abscesses or perineal or sacral abscesses. Patient says that she sometimes forgets to take her insulin at night. She also uses a Dexcom sensor for her blood glucose, but this fell off at the same time 4 days ago. ED course: BP 126/76, pulse 121, RR 19, temp 97, SpO2 100% on room air. Labs showed WBC 35.4, PLT 370, HbA1c 10% percent, LA 4.1, P hydroxybutyrate 6.4, BUN 21, CR 1.6, glucose 621, AG 13, Pro-Dustin 4.46. Urinalysis showed 4+ glucose, 4+ ketones, leukocyte Estrace negative. Chest x-ray showed no signs of consolidation, pulmonary edema or pleural effusion. In the ED patient received insulin 10 units IV x 1, morphine 4 Mg IV x 1, ondansetron 4 Mg IV x 1, normal saline 1L IVF bolus, ceftriaxone 1 g IV x 1, hydromorphone 0.5 Mg IV x 1 and pantoprazole 40 Mg IV x 1. Patient admitted to the ICU for treatment and management of DKA secondary to medication noncompliance and infectious diarrhea. 03/30/2025: Patient examined at bedside. No acute overnight events. Substernal pain has resolved after sucralfate x 1 given yesterday, patient is able to tolerate liquids by mouth comfortably this morning. Lab work shows close anion gap 30 -> 8, bicarb 25 and blood sugars trending 120?150s. Patient received IV insulin drip, 72 units in 24 hours. Will transition off of drip to subcutaneous 30 units long-acting glargine + 6 units lispro 3 times daily with meals, along with sliding scale insulin. Electrolytes repleted, patient tolerated solid food comfortably. She continues to have nausea, as needed Zofran on board. Dietitian consulted for diabetic counseling. Patient's white cell count also down trended 30 -> 10, will discontinue ciprofloxacin and Flagyl as diarrhea has now resolved with lactobacillus probiotics, she has been afebrile since admission, no acute signs of infections at this time. Diarrhea was likely in the setting of DKA. Patient counseled extensively on diabetes management, recommend continuous glucose monitor and degludec on discharge, with close follow-up with PCP. Exam Vital Signs Temp Pulse Resp BP Pulse Ox O2 Del Method 98.2 F 87 18 101/71 99 Room Air 03/30/25 00:00 03/30/25 07:00 03/30/25 07:00 03/30/25 07:00 03/30/25 07:00 03/29/25 16:00 Narrative Exam Constitutional Alert, oriented x3 and comfortable HEENT Vision grossly intact. Patent nares. Trachea midline. Respiratory Chest normal on inspection and clear to auscultation bilaterally. Cardiovascular S1 and S2 audible, RRR. No murmurs or carotid bruit. No gross JVD. Abdominal Soft and BS + ; non tender to palpation in all quadrants. Genitourinary No bladder tenderness, no flank pain. Normal to palpation. Musculoskeletal Extremities tone within normal limits. No LE edema. Neurological CN II - XII grossly intact. Extremity motor and sensation grossly intact. Skin Warm, dry and intact. No apparent lesions. Psychiatric Patient has a good affect, is cooperative. Objective Labs 04/01/25 04:50 04/01/25 04:50 Labs: Laboratory Results - last 24 hr 03/29/25 03/29/25 03/29/25 09:50 10:11 10:19 WBC 35.3 H* RBC 5.06 Hgb 14.0 Hct 42.3 MCV 84 MCH 27.7 MCHC 33.1 RDW Std Deviation 44.1 Plt Count 372 Neut % (Auto) Lymph % (Auto) Cobb % (Auto) Eos % (Auto) Baso % (Auto) Neut # (Auto) 32.1 H Lymph # (Auto) 2.2 Cobb # (Auto) 1.1 H Eos # (Auto) 0.0 Baso # (Auto) 0.0 Immature Gran # (Auto) 0.00 Absolute Nucleated RBC 0.00 Immature Gran % 0 Neutrophils % (Manual) 85 H Monocytes % (Manual) 3 Nucleated RBC % 0 Band Neutrophils 6 Lymphocytes (Manual) 6 L Smear Path Review Sent to Pathologist ESR 55 H PT 11.0 INR 1.0 APTT 25.1 Puncture Site Right Radial ABG pH 7.23 L ABG pCO2 20 L ABG pO2 112 H ABG HCO3 8 L* ABG O2 Saturation 99 H ABG Base Excess -17 L FiO2 21 Sodium 131 L Potassium 4.5 Chloride 91 L Carbon Dioxide 10.5 L* Anion Gap 30 H BUN 21 Creatinine 1.6 H Estim Creat Clear Calc Not Performed. eGFR 45 L BUN/Creatinine Ratio 13 Glucose 621 H* Estimated Ave Glu mg/dL 260 H Hemoglobin A1c 10.7 H Calculated Osmolality 294 Lactic Acid 4.1 H* Calcium 9.9 Corrected Calcium 9.9 Phosphorus 4.6 Magnesium 1.9 Total Bilirubin 0.6 Direct Bilirubin 0.2 AST 27 ALT 36 Alkaline Phosphatase 122 H Troponin I < 0.002 C-Reactive Prot, Quant 0.6 B-Natriuretic Peptide 26 Total Protein 7.8 Albumin 4.9 Globulin 2.9 Albumin/Globulin Ratio 1.7 Amylase 39 Lipase 23 Beta-Hydroxybutyrate/Acetoacetate 6.4 H Procalcitonin 4.46 H TSH 0.53 L Free T4 1.35 HCG, Qual Negative Ur Collection Type Urine Color Urine Clarity Urine pH Ur Specific Clemons Urine Protein Urine Glucose (UA) Urine Ketones Urine Blood Urine Nitrite Urine Bilirubin Urine Urobilinogen (Auto) Ur Leukocyte Esterase Urine RBC Urine WBC Ur Squamous Epith Cells Urine Bacteria Hyaline Casts Ur Culture Indicated? Urine HCG, Qual Urine Opiates Screen Positive A Urine Fentanyl Screen Negative Ur Barbiturates Screen Negative U Amphetamin/Meth Scrn Negative U Benzodiazepines Scrn Negative U Cocaine Metab Screen Negative U Marijuana (THC) Screen Positive A Ethyl Alcohol < 3.0 03/29/25 03/29/25 03/29/25 10:54 13:30 16:23 WBC RBC Hgb Hct MCV MCH MCHC RDW Std Deviation Plt Count Neut % (Auto) Lymph % (Auto) Cobb % (Auto) Eos % (Auto) Baso % (Auto) Neut # (Auto) Lymph # (Auto) Cobb # (Auto) Eos # (Auto) Baso # (Auto) Immature Gran # (Auto) Absolute Nucleated RBC Immature Gran % Neutrophils % (Manual) Monocytes % (Manual) Nucleated RBC % Band Neutrophils Lymphocytes (Manual) Smear Path Review ESR PT INR APTT Puncture Site ABG pH ABG pCO2 ABG pO2 ABG HCO3 ABG O2 Saturation ABG Base Excess FiO2 Sodium 137 Potassium 4.1 Chloride 106 Carbon Dioxide 20.7 Anion Gap 10 BUN 16 Creatinine 1.0 D Estim Creat Clear Calc 78.4 eGFR > 60 BUN/Creatinine Ratio 16 Glucose [address] Glu mg/dL Hemoglobin A1c Calculated Osmolality 280 Lactic Acid 1.7 1.1 Calcium 8.2 L D Corrected Calcium 8.4 L D Phosphorus 1.7 L Magnesium 1.3 L Total Bilirubin Direct Bilirubin AST ALT Alkaline Phosphatase Troponin I C-Reactive Prot, Quant B-Natriuretic Peptide Total Protein Albumin 3.7 D Globulin Albumin/Globulin Ratio Amylase Lipase Beta-Hydroxybutyrate/Acetoacetate Procalcitonin TSH Free T4 HCG, Qual Ur Collection Type Clean Catch Urine Color Colorless A Urine Clarity Clear Urine pH 5.0 Ur Specific Clemons 1.024 Urine Protein Negative Urine Glucose (UA) 4+ A Urine Ketones 4+ A Urine Blood Negative Urine Nitrite Negative Urine Bilirubin Negative Urine Urobilinogen (Auto) Negative Ur Leukocyte Esterase Negative Urine RBC < 1 Urine WBC 1 Ur Squamous Epith Cells 1 Urine Bacteria None Hyaline Casts < 1 Ur Culture Indicated? Not Indicated Urine HCG, Qual Negative Urine Opiates Screen Urine Fentanyl Screen Ur Barbiturates Screen U Amphetamin/Meth Scrn U Benzodiazepines Scrn U Cocaine Metab Screen U Marijuana (THC) Screen Ethyl Alcohol 03/29/25 03/29/25 03/30/25 20:17 23:09 00:27 WBC 16.5 H D RBC 3.88 L Hgb 10.8 L D Hct 31.4 L D MCV 81 MCH 27.8 MCHC 34.4 RDW Std Deviation 41.1 Plt Count 242 D Neut % (Auto) 78 Lymph % (Auto) 11 Cobb % (Auto) 8 Eos % (Auto) 1 Baso % (Auto) 0 Neut # (Auto) 12.8 H Lymph # (Auto) 1.8 Cobb # (Auto) 1.4 H Eos # (Auto) 0.2 Baso # (Auto) 0.1 Immature Gran # (Auto) 0.20 H Absolute Nucleated RBC 0.00 Immature Gran % 1 H Neutrophils % (Manual) Monocytes % (Manual) Nucleated RBC % 0 Band Neutrophils Lymphocytes (Manual) Smear Path Review ESR PT INR APTT Puncture Site ABG pH ABG pCO2 ABG pO2 ABG HCO3 ABG O2 Saturation ABG Base Excess FiO2 Sodium 137 139 Potassium 3.6 D 4.2 D Chloride 105 107 Carbon Dioxide 23.8 24.5 Anion Gap 8 8 BUN 14 14 Creatinine 0.9 0.8 Estim Creat Clear Calc 87.1 98.0 eGFR > 60 > 60 BUN/Creatinine Ratio 16 18 Glucose [address] Glu mg/dL Hemoglobin A1c Calculated Osmolality 280 284 Lactic Acid 0.7 Calcium 8.2 L 7.4 L Corrected Calcium 8.8 8.3 L Phosphorus 1.0 L 1.9 L Magnesium 2.2 2.2 Total Bilirubin Direct Bilirubin AST ALT Alkaline Phosphatase Troponin I C-Reactive Prot, Quant B-Natriuretic Peptide Total Protein Albumin 3.2 L D 2.9 L Globulin Albumin/Globulin Ratio Amylase Lipase Beta-Hydroxybutyrate/Acetoacetate Procalcitonin TSH Free T4 HCG, Qual Ur Collection Type Urine Color Urine Clarity Urine pH Ur Specific Clemons Urine Protein Urine Glucose (UA) Urine Ketones Urine Blood Urine Nitrite Urine Bilirubin Urine Urobilinogen (Auto) Ur Leukocyte Esterase Urine RBC Urine WBC Ur Squamous Epith Cells Urine Bacteria Hyaline Casts Ur Culture Indicated? Urine HCG, Qual Urine Opiates Screen Urine Fentanyl Screen Ur Barbiturates Screen U Amphetamin/Meth Scrn U Benzodiazepines Scrn U Cocaine Metab Screen U Marijuana (THC) Screen Ethyl Alcohol 03/30/25 04:15 WBC 10.7 D RBC 3.79 L Hgb 10.6 L Hct 30.7 L MCV 81 MCH 28.0 MCHC 34.5 RDW Std Deviation 41.2 Plt Count 261 Neut % (Auto) 78 Lymph % (Auto) 12 Cobb % (Auto) 7 Eos % (Auto) 2 Baso % (Auto) 0 Neut # (Auto) 8.4 H Lymph # (Auto) 1.3 Cobb # (Auto) 0.8 Eos # (Auto) 0.2 Baso # (Auto) 0.0 Immature Gran # (Auto) 0.03 H Absolute Nucleated RBC 0.00 Immature Gran % 0 Neutrophils % (Manual) Monocytes % (Manual) Nucleated RBC % 0 Band Neutrophils Lymphocytes (Manual) Smear Path Review ESR PT INR APTT Puncture Site ABG pH ABG pCO2 ABG pO2 ABG HCO3 ABG O2 Saturation ABG Base Excess FiO2 Sodium 142 Potassium 3.8 Chloride 108 H Carbon Dioxide 25.6 Anion Gap 8 BUN 14 Creatinine 0.8 Estim Creat Clear Calc 98.0 eGFR > 60 BUN/Creatinine Ratio 18 Glucose [address] Glu mg/dL Hemoglobin A1c Calculated Osmolality 285 Lactic Acid Calcium 7.6 L Corrected Calcium 8.4 L Phosphorus 1.4 L Magnesium 2.1 Total Bilirubin Direct Bilirubin AST ALT Alkaline Phosphatase Troponin I C-Reactive Prot, Quant B-Natriuretic Peptide Total Protein Albumin 3.0 L Globulin Albumin/Globulin Ratio Amylase Lipase Beta-Hydroxybutyrate/Acetoacetate Procalcitonin TSH Free T4 HCG, Qual Ur Collection Type Urine Color Urine Clarity Urine pH Ur Specific Clemons Urine Protein Urine Glucose (UA) Urine Ketones Urine Blood Urine Nitrite Urine Bilirubin Urine Urobilinogen (Auto) Ur Leukocyte Esterase Urine RBC Urine WBC Ur Squamous Epith Cells Urine Bacteria Hyaline Casts Ur Culture Indicated? Urine HCG, Qual Urine Opiates Screen Urine Fentanyl Screen Ur Barbiturates Screen U Amphetamin/Meth Scrn U Benzodiazepines Scrn U Cocaine Metab Screen U Marijuana (THC) Screen Ethyl Alcohol ABG Interpretation ABG results: 03/29/25 10:19 ABG pH 7.23 L ABG pCO2 20 L ABG pO2 112 H ABG HCO3 8 L* ABG O2 Saturation 99 H ABG Base Excess -17 L Quality Measures Quality Measures sepsis Current suspected stage: ruled out Possible source: unknown Blood cultures ordered: completed in ED Antibiotic ordered: No Assessment & Plan Assessment Current Active Medications: Generic Name Dose Route Start Last Admin Trade Name Freq PRN Reason Stop Dose Admin Acetaminophen 650 mg 03/29/25 11:48 Acetaminophen 325 Mg Tablet PO 04/28/25 11:47 Q6H PRN Fever >100.3 or pain 1-3 Al Hydrox/Mg Hydrox/Simethicone 30 ml 03/29/25 14:06 03/29/25 14:18 Mg Hyd/Al Hyd/Estrella (Maalox Reg) Susp 30 Ml Udc PO 04/28/25 14:05 30 ml Q4HR PRN Administration UPSET STOMACH/INDIGESTION Dextrose 25 ml 03/29/25 11:51 Dextrose 50%-Water Inj 50 Ml Syringe IV [id number] PRN Blood Sugar - Low Dextrose 50 ml 03/30/25 07:51 Dextrose 50%-Water Inj 50 Ml Syringe IV 04/29/25 07:50 Q15MIN PRN BG <50 OR BG <70 & pt unresponsive Enoxaparin Sodium 40 mg 03/29/25 12:45 03/29/25 13:56 Enoxaparin Sod Inj 40 Mg/0.4 Ml Syringe SC 04/12/25 12:44 40 mg QDAY SULTANA Administration Glucagon 1 mg 03/30/25 07:51 Glucagon Inj 1 Mg Vial IM Q15MIN PRN BG <70, and no IV access Hydromorphone HCl 0.5 mg 03/29/25 11:48 03/30/25 02:10 Hydromorphone Inj 2 Mg/Ml Vial IVP 04/03/25 11:47 0.5 mg Q4H PRN Administration PAIN SCALE 4-10(Mod-Sev Hyoscyamine 0.25 mg 03/29/25 14:15 03/30/25 06:05 Hyoscyamine Sulf 0.125 Mg Tab.Subl PO 04/28/25 14:14 Not Given Q4HR SULTANA Potassium Chloride 10 meq in 100 mls @ 100 mls/hr 03/29/25 11:51 Kcl Ivpb IV 04/28/25 11:50 .Q1H PRN IF POTASSIUM LESS THAN 3.3 Magnesium Sulfate 2 gm in 50 mls @ 25 mls/hr 03/29/25 11:51 03/29/25 17:31 Magnesium Sulfate Ivpb IV 04/28/25 11:50 25 mls/hr .Q2H PRN Administration PER DKA PROTOCOL Dextrose/Lactated Ringer's 1,000 mls @ 250 mls/hr 03/29/25 11:51 03/30/25 02:15 D5-Lr IV 04/28/25 11:50 Infused .Q4H PRN Infusion PER PROTOCOL Lactated Ringer's 1,000 mls @ 250 mls/hr 03/29/25 11:51 Lactated Ringers IV 03/30/25 11:50 .Q4H PRN PER PROTOCOL Potassium Cl/Dextrose/Lact Ringer's 20 meq in 1,000 mls @ 250 mls/hr 03/29/25 11:51 03/30/25 04:13 Kcl 20 Meq/L In D5-Lr IV 04/28/25 11:50 250 mls/hr .Q4H PRN Administration K LEVEL 3.3 TO 5.3 mM/L Potassium Chloride 10 meq in 100 mls @ 50 mls/hr 03/29/25 11:51 Kcl Ivpb IV 04/28/25 11:50 PRN PRN K LEVEL 3.3 to 5.3 & BG > 200 Potassium Phosphate 15 mmol in 250 mls @ 62.5 mls/hr 03/29/25 11:51 03/30/25 02:15 Pot Phos 15 Mmol In Ns 250 Ml IV 04/28/25 11:50 Infused PRN PRN Infusion Phosphate <= 1mg/dL Sodium Phosphate 15 mmol/ 255 mls @ 62.5 mls/hr 03/29/25 11:51 Sodium Chloride IV 04/28/25 11:50 .Q4H5M PRN Phosphate <= 1mg/dL and K> than 5.3 Calcium Gluconate/Sodium Chloride 1,000 mg in 50 mls @ 50 mls/hr 03/30/25 07:45 Calcium Gluc/Ns 1000mg Ivpb IV 03/30/25 08:44 X1 ONE Insulin Glargine 15 unit 03/30/25 09:00 Insulin Glargine (Lantus) 5 Unit/0.05 Ml (Per 5 Units) IN 03/31/25 05:00 BID SULTANA Insulin Glargine 30 unit 03/31/25 21:00 Insulin Glargine (Lantus) 5 Unit/0.05 Ml (Per 5 Units) IN 04/30/25 20:59 HS [facility] Insulin Human Lispro 6 unit 03/30/25 11:30 Insulin Lispro (Admelog) 1 Unit/0.01 Ml Unit IN 04/29/25 11:29 AC [facility] Insulin Human Lispro 0 unit 03/30/25 11:30 Insulin Lispro (Admelog) 1 Unit/0.01 Ml Unit IN 04/29/25 11:29 AC [facility] Protocol Lactobacillus Rhamnosus 1 cap 03/29/25 14:15 03/29/25 14:21 Lactobacillus Rhamnosus 1 Cap PO 04/28/25 14:14 1 cap DAILY SULTANA Administration Ondansetron HCl 4 mg 03/29/25 11:48 03/30/25 02:11 Ondansetron Inj 2 Mg/Ml Inj 2 Ml IVP 04/28/25 11:47 4 mg Q6H PRN Administration NAUSEA OR VOMITING Protocol Pantoprazole Sodium 40 mg 03/30/25 09:00 Pantoprazole Inj 40 Mg Vial IVP 04/29/25 08:59 QDAY SULTANA Sodium Bicarbonate 50 ml 03/29/25 11:51 Sodium Bicarb Inj 8.4% Syr 50 Ml Syringe IV 04/28/25 11:50 Q4HR PRN For ph <= to 7.0 Plan Ms Daniels is a 29-year-old female past medical history significant for insulin-dependent diabetes mellitus type 1 [10.7%], diabetic gastroparesis and chronic medication noncompliance resulted in multiple admissions to the ICU per year since 2017 for DKA presenting today with a chief complaint of vomiting and diarrhea. Patient admitted to the ICU for treatment and management of DKA secondary to medication noncompliance and infectious diarrhea. NEURO No acute problems CVS No acute problems PULM No Acute Problems ENDO DKA Insulin-dependent diabetes mellitus type 1 Dx: secondary to medication noncompliance - 03/29 : BHB 6.4 ; Glucose 621 ; ABG: pH 7.23, pCO2 20, bicarb 20.5. AG 30 - 03/30 : LA 4.1 -> wnl ; Anion gap 30 -> 8, bicarb 25 and blood sugars trending 120?150s. - Patient received IV insulin drip, 72 units in 24 hours - HbA1c = 10.7% (A1c 12.7 in Oct 2024) Rx: - Will transition off of drip to SC 30 units long-acting glargine + 6 units lispro 3 times daily with meals - On insulin sliding scale with Accu-Checks - Hypoglycemia protocol in place - Day team to start insulin glargine - Advisable to prescribe continuous glucose monitor on discharge - Patient counseled extensively on diabetes management, recommend optimization with degludec on discharge GI/Hep Diarrhea - resolved Nausea and Vomiting Dx: in setting of DKA - 03/30 : white cell count also down trended 30 -> 10, afebrile since admission, no acute signs of infections Rx: - Ondansetron 4mg IV q 4hrly as needed - Scopolamine patch x1 given, discontinued - Will discontinue ciprofloxacin and Flagyl as diarrhea has now resolved with lactobacillus probiotics. Diarrhea was likely in the setting of DKA. RENAL No active problems HEME/ONC No active problems ID No active problems ICU Health maintenance: Dispo: Admit to ICU for DKA -> downgrade to Team B Diet: Carb consistent LOW DVT ppx: Enoxaparin 40mg SC daily GI ppx: Protonix 40mg qD IV lines: 2 pIV Central line: No Arterial line: No Adams: No Code status: FULL CODE Plan of care discussed with attending Dr العراقي, - Epifanio Glasgow M.D. PGY2 Disclaimer: Minor errors in fire range technician may be present as this note was dictated using voice recognition software. Attending Provider Attestation/Addendum Patient seen and examined with the above resident, Epifanio Glasgow MD. I agree with the findings, assessment, and plan of care as documented. Patient with resolved DKA. Frequent issues with compliance. No evidence of ischemic or infectious precipitant. I would stop antibiotics at this time. Elevated WBC likely reflection of hemoconcentration and acute stress reaction. Tolerating PO well. Patient with no other complaints at this time. Will transfer to medicine [facility]oll[facility] for further optimization of insulin regimen prior to discharge in coming days. Complete ongoing electrolyte replacements. Total critical care time: I personally spent 30 minutes for review of physiologic parameters, directing plan of care, and coordination of care. This is exclusive of time spent teaching housestaff or performing any separate billable procedures. Patient remained at significant risk for further morbidity and mortality warranting close monitoring and care only available in the ICU. Critical care services required for diabetic ketoacidosis, SIRS without infection, and acute renal failure due to hypovolemia/ prerenal azotemia.
[2025-03-30] MEDS: PANTOPRAZOLE INJ 40 MG VIAL IVP (08:33)
[2025-03-30] MEDS: INSULIN GLARGINE (Lantus) 5 UNIT/0.05 ML (PER 5 UNITS) 15 UNIT SC ×2 (08:33→20:54)
[2025-03-30] MEDS: CALCIUM GLUC/NS 1000MG IVPB 1,000 MG/50 ML BAG 50 MG IV (08:34)
[2025-03-30] MEDS: ENOXAPARIN SOD INJ 40 MG/0.4 ML SYRINGE SC (08:34)
[2025-03-30] MEDS: NAPH,KPH MBDB 1 PACKET (1.5 GM) PO (10:51)
[2025-03-30 11:36] LABS: Stool for WBCs Few (Negative)
--- NOTE | 2025-03-30 11:46 | PC.SS ---
Maria E Daniels is a 29 year old female admitted for DKA. Patient appears to be alert and oriented. Patient confirmed demographic information. Patient lives at home with her mother in law and family. Patient informed that patient's life partner, Serge Johnston is her emergency contact [phone]. Patient informed she is independent with ADL's. Patient denied use of DME at home. Patient is followed by Dr. Chance Godinez for primary care. Choice of pharmacy is [facility]. Patient plans to return home upon discharge. Patient's life partner will provide transportation. D/c plan: Home Contact: Life partner, Serge Johnston [phone]
--- NOTE | 2025-03-30 14:10 | ESPR_ITS ---
<Statement entered by Dianne Pan MD - 04/04/25 08:57> I reviewed above note and agree with findings and plans. I have also personally examined the patient with medicine team and went over assessment and plan with medical team including clinical nursing intern and resident physician. Documentation for date of: 03/30/25 Subjective Subjective Interval history: Patient received as an ICU downgrade to Team B. Patient is a 29-year-old female with past medical history significant for insulin-dependent diabetes mellitus type 1 [10.7%], diabetic gastroparesis and chronic medication noncompliance resulted in multiple admissions to the ICU per year since 2017 for DKA initially presenting on 03/29/2025 with a chief complaint of vomiting and diarrhea. DKA is resolved and patient is transitioned to subQ 30 U glargine HS and 6 U lispro AC. Patient still endorses GI symptoms and poor appetite but is able to eat some PO. Started Reglan today in place of Zofran for patient's gastroparesis. Exam Vital Signs Temp Pulse Resp BP Pulse Ox O2 Del Method 99.1 F 80 18 123/85 H 98 Room Air 03/30/25 08:00 03/30/25 12:00 03/30/25 11:00 03/30/25 11:00 03/30/25 11:00 03/30/25 08:00 Narrative Exam Physical Exam General: Awake and in no acute distress. Conversational and non-toxic appearing. HEENT: Normocephalic, atraumatic, mucous membranes moist. Heart: Regular rate and rhythm, normal S1 and S2, no murmurs. Lungs: Clear to auscultation with no wheezing or crackles. Abdomen: Soft, nondistended, nontender, positive bowel sounds. ?No guarding or rebound tenderness. Neurologic: Alert and oriented x3, no gross neurological deficit, and patient able to move all 4 extremities. Extremities: No edema. Skin: No rash or ecchymoses. Objective Labs 03/30/25 04:15 03/30/25 04:15 Labs: Laboratory Results - last 24 hr 03/29/25 03/29/25 03/29/25 10:11 16:23 20:17 WBC RBC Hgb Hct MCV MCH MCHC RDW Std Deviation Plt Count Neut % (Auto) Lymph % (Auto) [place] % (Auto) Eos % (Auto) Baso % (Auto) Neut # (Auto) 32.1 H Lymph # (Auto) 2.2 [place] # (Auto) Eos # (Auto) 0.0 Baso # (Auto) 0.0 Immature Gran # (Auto) 0.00 Absolute Nucleated RBC Immature Gran % 0 Nucleated RBC % Sodium 137 137 Potassium 4.1 3.6 D Chloride 106 105 Carbon Dioxide 20.7 23.8 Anion Gap 10 8 BUN 16 14 Creatinine 1.0 D 0.9 Estim Creat Clear Calc 78.4 87.1 eGFR > 60 > 60 BUN/Creatinine Ratio 16 16 Glucose 197 H D 198 H Calculated Osmolality 280 280 Lactic Acid 1.1 Calcium 8.2 L D 8.2 L Corrected Calcium 8.4 L D 8.8 Phosphorus 1.7 L 1.0 L Magnesium 1.3 L 2.2 Albumin 3.7 D 3.2 L D Stool for White Cells 03/29/25 03/30/25 03/30/25 23:09 00:27 04:15 WBC 16.5 H D 10.7 D RBC 3.88 L 3.79 L Hgb 10.8 L D 10.6 L Hct 31.4 L D 30.7 L MCV 81 81 MCH 27.8 28.0 MCHC 34.4 34.5 RDW Std Deviation 41.1 41.2 Plt Count 242 D 261 Neut % (Auto) 78 78 Lymph % (Auto) 11 12 [place] % (Auto) 8 7 Eos % (Auto) 1 2 Baso % (Auto) 0 0 Neut # (Auto) 12.8 H 8.4 H Lymph # (Auto) 1.8 1.3 [place] # (Auto) 1.4 H 0.8 Eos # (Auto) 0.2 0.2 Baso # (Auto) 0.1 0.0 Immature Gran # (Auto) 0.20 H 0.03 H Absolute Nucleated RBC 0.00 0.00 Immature Gran % 1 H 0 Nucleated RBC % 0 0 Sodium 139 142 Potassium 4.2 D 3.8 Chloride 107 108 H Carbon Dioxide 24.5 25.6 Anion Gap 8 8 BUN 14 14 Creatinine 0.8 0.8 Estim Creat Clear Calc 98.0 98.0 eGFR > 60 > 60 BUN/Creatinine Ratio 18 18 Glucose 206 H 129 H D Calculated Osmolality 284 285 Lactic Acid 0.7 Calcium 7.4 L 7.6 L Corrected Calcium 8.3 L 8.4 L Phosphorus 1.9 L 1.4 L Magnesium 2.2 2.1 Albumin 2.9 L 3.0 L Stool for White Cells 03/30/25 08:24 WBC RBC Hgb Hct MCV MCH MCHC RDW Std Deviation Plt Count Neut % (Auto) Lymph % (Auto) [place] % (Auto) Eos % (Auto) Baso % (Auto) Neut # (Auto) Lymph # (Auto) [place] # (Auto) Eos # (Auto) Baso # (Auto) Immature Gran # (Auto) Absolute Nucleated RBC Immature Gran % Nucleated RBC % Sodium Potassium Chloride Carbon Dioxide Anion Gap BUN Creatinine Estim Creat Clear Calc eGFR BUN/Creatinine Ratio Glucose Calculated Osmolality Lactic Acid Calcium Corrected Calcium Phosphorus Magnesium Albumin Stool for White Cells Few A ABG Interpretation ABG results: 03/29/25 10:19 ABG pH 7.23 L ABG pCO2 20 L ABG pO2 112 H ABG HCO3 8 L* ABG O2 Saturation 99 H ABG Base Excess -17 L Quality Measures Quality Measures sepsis Current suspected stage: ruled out Possible source: unknown Blood cultures ordered: completed in ED Antibiotic ordered: No Assessment & Plan Assessment Current Active Medications: Generic Name Dose Route Start Last Admin Trade Name Freq PRN Reason Stop Dose Admin Acetaminophen 650 mg 03/29/25 11:48 Acetaminophen 325 Mg Tablet PO 04/28/25 11:47 Q6H PRN Fever >100.3 or pain 1-3 Hydrocodone Bitart/Acetaminophen 1 tab 03/30/25 11:48 Hydrocodone/Apap 5/325 Tablet PO 04/04/25 11:47 Q6HR PRN PAIN SCALE 4-6 (Moderate Al Hydrox/Mg Hydrox/Simethicone 30 ml 03/29/25 14:06 03/29/25 14:18 Mg Hyd/Al Hyd/Estrella (Maalox Reg) Susp 30 Ml Udc PO 04/28/25 14:05 30 ml Q4HR PRN Administration UPSET STOMACH/INDIGESTION Dextrose 50 ml 03/30/25 07:51 Dextrose 50%-Water Inj 50 Ml Syringe IV 04/29/25 07:50 Q15MIN PRN BG <50 OR BG <70 & pt unresponsive Enoxaparin Sodium 40 mg 03/29/25 12:45 03/30/25 08:34 Enoxaparin Sod Inj 40 Mg/0.4 Ml Syringe SC 04/12/25 12:44 40 mg QDAY SULTANA Administration Glucagon 1 mg 03/30/25 07:51 Glucagon Inj 1 Mg Vial IM Q15MIN PRN BG <70, and no IV access Hydromorphone HCl 0.5 mg 03/30/25 11:37 Hydromorphone Inj 2 Mg/Ml Vial IVP 04/03/25 11:47 Q4H PRN PAIN SCALE 7-10 (Severe Hyoscyamine 0.25 mg 03/29/25 14:15 03/30/25 09:11 Hyoscyamine Sulf 0.125 Mg Tab.Subl PO 04/28/25 14:14 Not Given Q4HR SULTANA Insulin Glargine 15 unit 03/30/25 09:00 03/30/25 08:33 Insulin Glargine (Lantus) 5 Unit/0.05 Ml (Per 5 Units) SC 03/31/25 05:00 15 unit BID SULTANA Administration Insulin Glargine 30 unit 03/31/25 21:00 Insulin Glargine (Lantus) 5 Unit/0.05 Ml (Per 5 Units) SC 04/30/25 20:59 HS [facility] Insulin Human Lispro 6 unit 03/30/25 11:30 03/30/25 10:54 Insulin Lispro (Admelog) 1 Unit/0.01 Ml Unit SC 04/29/25 11:29 Not Given AC [facility] Insulin Human Lispro 0 unit 03/30/25 11:30 03/30/25 10:54 Insulin Lispro (Admelog) 1 Unit/0.01 Ml Unit SC 04/29/25 11:29 Not Given AC [facility] Protocol Lactobacillus Rhamnosus 1 cap 03/29/25 14:15 03/30/25 08:46 Lactobacillus Rhamnosus 1 Cap PO 04/28/25 14:14 Not Given DAILY SULTANA Metoclopramide HCl 5 mg 03/30/25 11:38 Metoclopramide Inj 5 Mg/Ml Vial 2 Ml IVP 04/29/25 11:59 Q6HR PRN Nausea/Vomiting Protocol Pantoprazole Sodium 40 mg 03/30/25 09:00 03/30/25 08:33 Pantoprazole Inj 40 Mg Vial IVP 04/29/25 08:59 40 mg QDAY SULTANA Administration Plan 29-year-old female with past medical history significant for insulin-dependent diabetes mellitus type 1 [10.7%], diabetic gastroparesis and chronic medication noncompliance resulted in multiple admissions to the ICU per year since 2017 for DKA initially presenting on 03/29/2025 with a chief complaint of vomiting and diarrhea, subsequently admitted to ICU for DKA, now resolved and downgraded to medical floors. #DKA - resolved #Insulin-dependent diabetes mellitus type 1 Patient missed doses of her insulin reportedly. Has history of episodes secondary to medication noncompliance. On admission 03/29: BHB 6.4 ; Glucose 621 ; ABG: pH 7.23, pCO2 20, bicarb 20.5. AG 30 - 03/30 : LA 4.1 -> wnl ; Anion gap 30 -> 8, bicarb 25 and blood sugars trending 120?150s. - Patient received IV insulin drip, 72 units in 24 hours - HbA1c = 10.7% (A1c 12.7 in Oct 2024) Plan: - Continue insulin glargine 30 U qday - Continue insulin lispro 6 U 3 times daily with meals - Continue insulin sliding scale with Accu-Checks - Hypoglycemia protocol in place - Will prescribe continuous glucose monitor on discharge - Patient counseled extensively on diabetes management, recommend optimization with degludec on discharge if covered by insurance #Diabetic gastroparesis #Cyclical vomiting syndrome Patient has nausea, vomiting, and diarrhea in setting of DKA. She has a longstanding history of gastroparesis and likely cyclical vomiting syndrome in the setting of marijuana use. - 03/30 : white cell count also down trended 30 -> 10, afebrile since admission, no acute signs of infections Plan: - Switched ondansetron to Reglan - Consider capsaicin cream if continues to vomit DVT prophylaxis: Heparin 5,000 U subQ GI prophylaxis: Pantoprazole 40 mg IV daily Diet: Carb consistent low Adams: None Lines: Peripheral IV Antibiotics: None CODE STATUS: FULL Reason for hospitalization: DKA -> Downgraded Patient plan of care was discussed with the attending physician, Dr. Pan. Shahla Whiting, PGY-2
--- NOTE | 2025-03-30 14:52 | PC.NURSE ---
call to pharmacy, I have no Levsin for pt
[2025-03-30] MEDS: INSULIN LISPRO (AdmeLOG) 1 UNIT/0.01 ML UNIT SC (17:50)
[2025-03-30] MEDS: HYOSCYAMINE SULF 0.125 MG TAB.SUBL 0.25 MG PO (21:00)
[2025-03-31] VITALS (8 sets, daily range): BP systolic 109–146; BP diastolic 76–98; PULSE 68–93; RESP 16–99; TEMP 36.2–36.7; O2SAT 95–99
[2025-03-31] MEDS: HYOSCYAMINE SULF 0.125 MG TAB.SUBL 0.25 MG PO ×6 (02:12→21:51)
[2025-03-31 05:38] LABS: Basophils % (Auto) 0 % (0-2.5); Eosinophils # (Auto) 0.2 Thou/mm3 (0.0-0.5); Eosinophils % (Auto) 2 % (0-10); Hematocrit 31.4 % (36.0-46.0); Hemoglobin 10.4 g/dL (12.0-16.0); Immature Granulocytes % (Auto) 0 % (0-0); Immature Granulocytes Auto 0.02 Thou/mm3 (0.00-0.00); Lymphocytes % (Auto) 35 % (10-50); Mean Corpuscular HGB Conc 33.1 g/dl (31.0-37.0); Mean Corpuscular Hemoglobin 27.8 pg (25.0-35.0); Mean Corpuscular Volume 84 fL (80-100); Monocytes # (Auto) 0.7 Thou/mm3 (0.0-0.8); Monocytes % (Auto) 8 % (0-12); Neutrophils # (Auto) 4.7 Thou/mm3 (1.8-7.7); Neutrophils % (Auto) 55 % (37-80); Nucleated Red Blood Cell % 0 /100 WBC (0); Platelet Count 247 Thou/mm3 (140-440); RDW Standard Deviation 43.8 fL (36.4-46.3); Red Blood Count 3.74 Miln/mm3 (4.00-5.20); White Blood Count 8.6 Thou/mm3 (3.6-11.0)
[2025-03-31 06:28] LABS: Albumin, Serum 2.9 gm/dL (3.5-5.0); Anion Gap 6 (7-16); BUN/Creatinine Ratio 12 Ratio (12-20); Blood Urea Nitrogen 7 mg/dL (9-23); Calcium (Corrected) 8.9 mg/dL (8.5-10.1); Carbon Dioxide 26.3 mMol/L (20.0-31.0); Chloride 106 mMol/L (98-107); Creatinine (Component) 0.6 mg/dL (0.6-1.3); Estimated Creatinine Clearance 130.7 mL/min (>60); Glucose 150 mg/dL (74-106); Magnesium 1.9 mg/dL (1.6-2.6); Osmolality,Calculated 276 (275-295); Phosphorous 1.6 mg/dL (2.4-5.1); Sodium 138 mMol/L (136-145); eGFR > 60 See Note
[2025-03-31] MEDS: HYDROcodone/APAP 5/325 TABLET 1 TAB PO (08:33)
[2025-03-31] MEDS: ENOXAPARIN SOD INJ 40 MG/0.4 ML SYRINGE SC (08:33)
[2025-03-31] MEDS: PANTOPRAZOLE INJ 40 MG VIAL IVP (08:33)
[2025-03-31] MEDS: INSULIN LISPRO (AdmeLOG) 1 UNIT/0.01 ML UNIT 6 UNIT SC (08:33)
[2025-03-31] MEDS: NAPH,KPH MBDB 1 PACKET (1.5 GM) 2 PACKET PO (08:33)
[2025-03-31] MEDS: LACTOBACILLUS RHAMNOSUS 1 CAP PO (08:33)
--- NOTE | 2025-03-31 11:28 | PC.NURSE ---
DR. ONTIVEROS MADE AWARE PT'S BLOOD SUGAR 39 UP TO 41, PT ALERT AND ORIENTED AND ABLE TO EAT FOOD (CARBS). HOSPITALIST AND RESIDENTS AT BEDSIDE TO ASSESS PT. CHANGES WILL MAKE CHANGES TO PATIENT'S MEDICATIONS.
--- NOTE | 2025-03-31 11:56 | PC.NURSE ---
BLOOD SUGAR REASSESS AFTER EATING CARBS, 106. MADE AWARE.
[2025-03-31] MEDS: METOCLOPRAMIDE INJ 5 MG/ML VIAL 2 ML IVP ×2 (12:01→17:23)
[2025-03-31] MEDS: MG HYD/AL HYD/SIME (Maalox Reg) SUSP 30 ML UDC PO (12:01)
[2025-03-31] MEDS: INSULIN LISPRO (AdmeLOG) 1 UNIT/0.01 ML UNIT SC (17:24)
--- NOTE | 2025-03-31 17:50 | ESPR_ITS ---
<Statement entered by Dianne Pan MD - 04/04/25 08:57> I reviewed above note and agree with findings and plans. I have also personally examined the patient with medicine team and went over assessment and plan with medical team including international project manager and resident physician. Documentation for date of: 03/31/25 Subjective Subjective Interval history: No acute overnight events reported. Patient seen and examined at bedside this morning. Patient is complaining of severe abdominal pain and have received [place] and Reglan this morning for it. Patient states she is unable to tolerate oral diet because she is nauseous and in pain. Patient received insulin 6 units SQ and her fingerstick glucose was in the 30s because she was unable to tolerate the breakfast and did not eat. Will readjust patient's Lantus and subcu insulin along with sliding scale and continue to monitor. Vitals are stable labs are reviewed and electrolytes are repleted. Exam Vital Signs Temp Pulse Resp BP Pulse Ox O2 Del Method 97.9 F 78 18 137/98 H 98 Room Air 03/31/25 16:00 03/31/25 16:00 03/31/25 16:00 03/31/25 16:00 03/31/25 16:03/31/25 16:00 Narrative Exam GENERAL: A&Ox3 . Awake, Not in acute distress NEURO: no focal neurological deficits HEENT: Atraumatic, Normocephalic. mucous membranes moist. Eyes open, symmetrical, & clear HEART: Normal Heart Sounds LUNGS: Clear to auscultation with no wheezing or crackles. ABDOMEN: soft, non-distended, diffuse abdominal pain SKIN: No Rash or ecchymoses EXTREMITIES: No edema, tenderness, able to move all 4 extremities, pedal pulses palpated Objective Labs 03/31/25 04:40 03/31/25 04:40 Labs: Laboratory Results - last 24 hr 03/31/25 04:40 WBC 8.6 RBC 3.74 L Hgb 10.4 L Hct 31.4 L MCV 84 MCH 27.8 MCHC 33.1 RDW Std Deviation 43.8 Plt Count 247 Neut % (Auto) 55 Lymph % (Auto) 35 [place] % (Auto) 8 Eos % (Auto) 2 Baso % (Auto) 0 Neut # (Auto) 4.7 Lymph # (Auto) 3.0 [place] # (Auto) 0.7 Eos # (Auto) 0.2 Baso # (Auto) 0.0 Immature Gran # (Auto) 0.02 H Absolute Nucleated RBC 0.00 Immature Gran % 0 Nucleated RBC % 0 Sodium 138 Potassium 4.0 Chloride 106 Carbon Dioxide 26.3 Anion Gap 6 L BUN 7 L Creatinine 0.6 Estim Creat Clear Calc 130.7 eGFR > 60 BUN/Creatinine Ratio 12 Glucose 150 H Calculated Osmolality 276 Calcium 8.0 L Corrected Calcium 8.9 Phosphorus 1.6 L Magnesium 1.9 Albumin 2.9 L ABG Interpretation ABG results: 03/29/25 10:19 ABG pH 7.23 L ABG pCO2 20 L ABG pO2 112 H ABG HCO3 8 L* ABG O2 Saturation 99 H ABG Base Excess -17 L Quality Measures Quality Measures sepsis Current suspected stage: ruled out Possible source: unknown Blood cultures ordered: completed in ED Antibiotic ordered: No Assessment & Plan Assessment Current Active Medications: Generic Name Dose Route Start Last Admin Trade Name Freq PRN Reason Stop Dose Admin Acetaminophen 650 mg 03/29/25 11:48 Acetaminophen 325 Mg Tablet PO 04/28/25 11:47 Q6H PRN Fever >100.3 or pain 1-3 Hydrocodone Bitart/Acetaminophen 1 tab 03/30/25 11:48 03/31/25 08:33 Hydrocodone/Apap 5/325 Tablet PO 04/04/25 11:47 1 tab Q6HR PRN Administration PAIN SCALE 4-6 (Moderate Al Hydrox/Mg Hydrox/Simethicone 30 ml 03/29/25 14:06 03/31/25 12:01 Mg Hyd/Al Hyd/Estrella (Maalox Reg) Susp 30 Ml Udc PO 04/28/25 14:05 30 ml Q4HR PRN Administration UPSET STOMACH/INDIGESTION Capsaicin 0 gm 03/31/25 14:00 03/31/25 13:24 Capsaicin Cr 60 Gm Tube TOP 04/30/25 13:59 Not Given TID SULTANA Dextrose 50 ml 03/30/25 07:51 Dextrose 50%-Water Inj 50 Ml Syringe IV 04/29/25 07:50 Q15MIN PRN BG <50 OR BG <70 & pt unresponsive Enoxaparin Sodium 40 mg 03/29/25 12:45 03/31/25 08:33 Enoxaparin Sod Inj 40 Mg/0.4 Ml Syringe SC 04/12/25 12:44 40 mg QDAY SULTANA Administration Glucagon 1 mg 03/30/25 07:51 Glucagon Inj 1 Mg Vial IM Q15MIN PRN BG <70, and no IV access Hydromorphone HCl 0.5 mg 03/30/25 11:37 Hydromorphone Inj 2 Mg/Ml Vial IVP 04/03/25 11:47 Q4H PRN PAIN SCALE 7-10 (Severe Hyoscyamine 0.25 mg 03/29/25 14:15 03/31/25 17:23 Hyoscyamine Sulf 0.125 Mg Tab.Subl PO 04/28/25 14:14 0.25 mg Q4HR SULTANA Administration Insulin Glargine 25 unit 03/31/25 21:00 Insulin Glargine (Lantus) 5 Unit/0.05 Ml (Per 5 Units) SC 04/30/25 20:59 HS SULTANA Insulin Human Lispro 0 unit 03/30/25 11:30 03/31/25 17:24 Insulin Lispro (Admelog) 1 Unit/0.01 Ml Unit SC 04/29/25 11:29 4 unit AC SULTANA Administration Protocol Lactobacillus Rhamnosus 1 cap 03/29/25 14:15 03/31/25 08:33 Lactobacillus Rhamnosus 1 Cap PO 04/28/25 14:14 1 cap DAILY SULTANA Administration Metoclopramide HCl 5 mg 03/31/25 18:00 03/31/25 17:23 Metoclopramide Inj 5 Mg/Ml Vial 2 Ml IVP 04/30/25 17:59 5 mg Q6HR SULTANA Administration Protocol Pantoprazole Sodium 40 mg 03/30/25 09:00 03/31/25 08:33 Pantoprazole Inj 40 Mg Vial IVP 04/29/25 08:59 40 mg QDAY SULTANA Administration Plan Ms. Daniels is a 29-year-old female with past medical history significant for insulin-dependent diabetes mellitus type 1 [10.7%], diabetic gastroparesis and chronic medication noncompliance resulted in multiple admissions to the ICU per year since 2017 for DKA initially presenting on 03/29/2025 with a chief complaint of vomiting and diarrhea, subsequently admitted to ICU for DKA, Pt is transitioned to SubCu insulin and downgraded to floors on 03/31/25. #Diabetic gastroparesis #Cyclical vomiting syndrome Patient has nausea, vomiting, and diarrhea in setting of DKA. She has a longstanding history of gastroparesis and likely cyclical vomiting syndrome in the setting of marijuana use. - 03/30 : white cell count also down trended 30 -> 10, afebrile since admission, no acute signs of infections Plan: - Reglan Q6 Hrs - Capsaicin cream ordered #DKA - resolved #Insulin-dependent diabetes mellitus type 1 Patient missed doses of her insulin reportedly. Has history of episodes secondary to medication noncompliance. On admission 03/29: BHB 6.4 ; Glucose 621 ; ABG: pH 7.23, pCO2 20, bicarb 20.5. AG 30 - 03/30 : LA 4.1 -> wnl ; Anion gap 30 -> 8, bicarb 25 and blood sugars trending 120?150s. - Patient received IV insulin drip, 72 units in 24 hours - HbA1c = 10.7% (A1c 12.7 in Oct 2024) Plan: - Continue insulin glargine 25 U qday - Discontinued insulin lispro 6 U 3 times daily with meals due to hypoglycemia as pt is not tolerating diet - Continue insulin sliding scale with Accu-Checks - Hypoglycemia protocol in place - Will prescribe continuous glucose monitor on discharge - Patient counseled extensively on diabetes management, recommend optimization with degludec on discharge if covered by insurance DVT prophylaxis: Heparin 5,000 U subQ GI prophylaxis: Pantoprazole 40 mg IV daily Diet: Carb consistent low [place]: None Lines: Peripheral IV Antibiotics: None CODE STATUS: FULL Assessment and plan discussed with attending physician Dr. Dr. Peters (PGY-1)- Internal medicine resident
[2025-03-31] MEDS: INSULIN GLARGINE (Lantus) 5 UNIT/0.05 ML (PER 5 UNITS) 25 UNIT SC (21:52)
[2025-04-01] VITALS: BP 152/114; PULSE 82; RESP 18; TEMP 36.4; O2SAT 99
[2025-04-01] MEDS: METOCLOPRAMIDE INJ 5 MG/ML VIAL 2 ML IVP ×3 (00:35→11:33)
[2025-04-01] MEDS: HYOSCYAMINE SULF 0.125 MG TAB.SUBL 0.25 MG PO ×3 (01:11→10:55)
[2025-04-01 04:00] VITALS: BP 135/93; PULSE 73; RESP 18; TEMP 36.6; O2SAT 99
[2025-04-01 06:20] LABS: Basophils % (Auto) 0 % (0-2.5); Eosinophils # (Auto) 0.1 Thou/mm3 (0.0-0.5); Eosinophils % (Auto) 1 % (0-10); Hematocrit 31.3 % (36.0-46.0); Hemoglobin 10.6 g/dL (12.0-16.0); Immature Granulocytes % (Auto) 0 % (0-0); Immature Granulocytes Auto 0.03 Thou/mm3 (0.00-0.00); Lymphocytes # (Auto) 3.7 Thou/mm3 (1.0-4.8); Lymphocytes % (Auto) 40 % (10-50); Mean Corpuscular HGB Conc 33.9 g/dl (31.0-37.0); Mean Corpuscular Hemoglobin 28.2 pg (25.0-35.0); Mean Corpuscular Volume 83 fL (80-100); Monocytes # (Auto) 0.6 Thou/mm3 (0.0-0.8); Monocytes % (Auto) 7 % (0-12); Neutrophils # (Auto) 4.9 Thou/mm3 (1.8-7.7); Neutrophils % (Auto) 52 % (37-80); Nucleated Red Blood Cell % 0 /100 WBC (0); Platelet Count 223 Thou/mm3 (140-440); RDW Standard Deviation 41.8 fL (36.4-46.3); Red Blood Count 3.76 Miln/mm3 (4.00-5.20); White Blood Count 9.4 Thou/mm3 (3.6-11.0)
[2025-04-01 06:44] LABS: Albumin, Serum 3.1 gm/dL (3.5-5.0); Anion Gap 6 (7-16); BUN/Creatinine Ratio 15 Ratio (12-20); Blood Urea Nitrogen 9 mg/dL (9-23); Calcium 8.3 mg/dL (8.3-10.6); Carbon Dioxide 29.8 mMol/L (20.0-31.0); Chloride 103 mMol/L (98-107); Creatinine (Component) 0.6 mg/dL (0.6-1.3); Estimated Creatinine Clearance 130.7 mL/min (>60); Glucose 172 mg/dL (74-106); Magnesium 1.7 mg/dL (1.6-2.6); Osmolality,Calculated 280 (275-295); Phosphorous 3.2 mg/dL (2.4-5.1); Sodium 139 mMol/L (136-145); eGFR > 60 See Note
[2025-04-01 08:00] VITALS: BP 136/94; PULSE 74; RESP 14; TEMP 36.4; O2SAT 100
[2025-04-01] MEDS: PANTOPRAZOLE INJ 40 MG VIAL IVP (09:07)
[2025-04-01] MEDS: MG HYD/AL HYD/SIME (Maalox Reg) SUSP 30 ML UDC PO (09:07)
[2025-04-01] MEDS: LACTOBACILLUS RHAMNOSUS 1 CAP PO (09:08)
[2025-04-01] MEDS: ENOXAPARIN SOD INJ 40 MG/0.4 ML SYRINGE SC (09:08)
[2025-04-01] MEDS: INSULIN LISPRO (AdmeLOG) 1 UNIT/0.01 ML UNIT SC (11:34)
--- NOTE | 2025-04-01 11:56 | PC.NURSE ---
PATIENT WAITING FOR HER RIDE.
[2025-04-01 12:00] VITALS: BP 151/98; PULSE 79; RESP 16; TEMP 36.5; O2SAT 100
--- NOTE | 2025-04-01 16:11 | ESDS_ITS ---
<Statement entered by Dianne Pan MD - 04/04/25 09:00> I reviewed above note and agree with findings and plans. I have also personally examined the patient with medicine team and went over assessment and plan with medical team including internet sales consultant and resident physician. Planned Discharge Date 04/01/25 DS: Providers Provider Date of admission: 03/29/25 11:48 Primary care physician: Chance Godinez PA-C Admitting Provider: Zaina Sanders MD Attending Provider on Admission: Dianne Pan MD Consults: 03/29/25 11:52 Referral Registered Dietitian Routine Comment: Attending Provider on DC: Dianne Pan MD Discharging Provider: Shahla Whiting MD DS: Diagnosis Problem List Completed Was Problem List Reviewed/Reconciled?: Yes Hospital Course Hospital Course Hospital course: Reason for hospitalization: DKA 29-year-old female with past medical history of insulin-dependent diabetes mellitus type 1 [10.7%], diabetic gastroparesis, and medication noncompliance resulting in multiple admissions to the ICU per year since 2017 for DKA presented on 03/29/2025 with a chief complaint of vomiting and diarrhea. Patient reportedly missed doses of her insulin. Patient had a BHB 6.4, glucose 621, ABG pH 7.23, pCO2 20, bicarb 20.5, anion gap was 30. Patient was subsequently admitted to the ICU for DKA, anion gap normalized and patient was transitioned to subcutaneous insulin, downgraded to floors on 03/31/2025. Patient had continued symptoms of nausea and abdominal pain, with poor PO intake, likely secondary to diabetic gastroparesis. She was started on scheduled Reglan and had improvement of symptoms. Patient received extensive counseling on insulin administration and adherence. Patient reports that she has adequate supply of her insulin and utilizes her Dexcom, having enough supply. Patient is discharged on degludec 20 U once a day, and instructed to uptitrate her dose based on carb count and intake. Patient has adequate supply of her insulin aspart for mealtime dose, starting at 6 U AC. Patient had poor intake while inpatient so will need close follow up outpatient to uptitrate her insulin. Patient advised to follow up with Dr. Whiting at [facility] in 2 weeks. Admission Diagnoses: #Diabetic gastroparesis #Cyclical vomiting syndrome #DKA - resolved #Insulin-dependent diabetes mellitus type 1 Discharge Recommendations: -Follow up with PCP within 1 week of discharge -Please make an appointment at the [facility] for follow up: Rebec[address] [place] [address] -Continue rest of medications as previously prescribed -Return to the ED or call EMS if symptoms return and/or worsen. Patient plan of care was discussed with the attending physician, Dr. Pan. Shahla Whiting, PGY-2 Time Spent with Patient Time attestation: Total time spent providing and/or coordinating discharge services: Time spent: Greater than 30 minutes Exam Vital Signs Temp Pulse Resp BP Pulse Ox O2 Del Method 97.7 F 79 16 151/98 H 100 Room Air 04/01/25 12:00 04/01/25 12:00 04/01/25 12:00 04/01/25 12:00 04/01/25 12:00 04/01/25 12:00 Narrative Exam GENERAL: A&Ox3. Awake, Not in acute distress NEURO: no focal neurological deficits HEENT: Atraumatic, Normocephalic. mucous membranes moist. Eyes open, symmetrical, & clear HEART: Normal Heart Sounds LUNGS: Clear to auscultation with no wheezing or crackles. ABDOMEN: soft, non-distended, diffuse abdominal pain SKIN: No Rash or ecchymoses EXTREMITIES: No edema, tenderness, able to move all 4 extremities, pedal pulses palpated Discharge Plan Plan Patient Disposition: HOME (Self Care) Care Plan Goals: Discharge Recommendations: -Follow up with PCP within 1 week of discharge -Please make an appointment at the [facility] for follow up: Rebeca [address]inda Dasil[address] [place] [address] -Continue rest of medications as previously prescribed -Return to the ED or call EMS if symptoms return and/or worsen. Prescriptions/Referrals Prescriptions/Med Rec: Continued (DME) lancet-gluc dfprp-ngbhmd-boryc Kit See Rx Instructions .Route Qty: 1 1RF Rx Instructions: As directed insulin degludec [Tresiba FlexTouch U-100] 100 unit/mL (3 mL) insulin pen 20 unit subcut HS Qty: 15 4RF (DME) blood-glucose meter [Blood Glucose Monitoring] Kit See Rx Instructions .Route Qty: 1 0RF Rx Instructions: As directed (DME) Blood Glucose Test Strip See Rx Instructions .Route Qty: 50 0RF Rx Instructions: As directed (DME) insulin syringe-needle U-100 [Ultra-Thin II Insulin Syringe] 1 mL 29 gauge x 1/2 syringe See Rx Instructions .Route Qty: 100 0RF Rx Instructions: As directed Gvoke 1 mg/0.2 mL solution 1 mg subcut Q20M PRN (Reason: hypoglycemia) Qty: 0.2 0RF Rx Instructions: until target blood sugar attained pantoprazole 40 mg tablet,delayed release (DR/EC) 40 mg PO QDAY Qty: 14 0RF metoclopramide HCl [Reglan] 10 mg tablet 10 mg PO Q6H PRN (Reason: nausea and vomiting) Qty: 60 0RF Referrals: Chance Godinez PA-C [Primary Care Provider] - Patient/Caregiver Discharge Instructions Education Materials: Abdominal Pain, Diabetes: My Exam and Test Results, Diabetic Ketoacidosis Print Language: Tunisian Stand Alone Forms: [facility] Award Info., Patient Portal Info Letter Discharge Order Discharge Orders: Discharge (Routine); Ordered 04/01/25 Ordered By: Shahla Whiting Quality Discharge Quality Measures none
[2025-04-03 07:01] LABS: Giardia Result NOT DETECTED; Norovirus, EIA (Stool)* NOT DETECTED
== END 2025-04-01 12:44 | disposition home or self-care (01) | DRG 420 ==
LOC: SERX 11:46 → SERHOLD 12:06 → S2SX 13:09 → S3NX 03-30 14:46
PROVIDERS: Student in an Organized Health Care Education/Training Program; Admitting Provider Internal Medicine; Emergency Provider Emergency Medicine; PCP Physician Assistant; Visit Provider Internal Medicine
DX: E10.10 Type 1 diabetes mellitus with ketoacidosis without coma (principal); E10.43 Type 1 diabetes mellitus with diabetic autonomic (poly)neuropathy; K31.84 Gastroparesis; N17.9 Acute kidney failure, unspecified; R63.0 Anorexia; Z68.23 Body mass index [BMI] 23.0-23.9, adult; T38.3X6A Underdosing of insulin and oral hypoglycemic [antidiabetic] drugs, initial encounter; R11.15 Cyclical vomiting syndrome unrelated to migraine; R65.10 Systemic inflammatory response syndrome (SIRS) of non-infectious origin without acute organ dysfunction; R79.89 Other specified abnormal findings of blood chemistry; F17.210 Nicotine dependence, cigarettes, uncomplicated; Z91.148 Patient's other noncompliance with medication regimen for other reason; Z79.4 Long term (current) use of insulin; Z79.899 Other long term (current) drug therapy
CPT/HCPCS: 36415; 36600; 71045; 80053; 80069; 80307; 80320; 81001; 81025; 82010; 82150; 82248; 82803; 83036; 83605; 83690; 83735; 83880; 84100; 84145; 84439; 84443; 84484; 84703; 85025; 85610; 85652; 85730; 86140; 87015; 87040; 87045; 87046; 87081; 87205; 87329; 87400; 87449; 87811; 87899; 93005; 96361; 96365; 96374; 96375; 99291; J0613; J0696; J0744; J1171; J1650; J1815; J2270; J2405; J2470; J2765; J3475; J3480; J3490; J7030; J7120; J7121; J7999; A9270; G0480; J1836

== ENCOUNTER 2025-05-25 14:30 | Emergency (ER) | payer MEDICAID, SELFPAY ==
[2025-05-25 14:35] VITALS: BP 117/74; PULSE 108; RESP 18; TEMP 37.2; O2SAT 95
[2025-05-25 14:36] VITALS: BMI 24.2
--- NOTE | 2025-05-25 14:48 | XR_ITS ---
Examination: AP chest single view Technique one AP portable upright chest single view Date and time: May 25, 2025 1605 hours Comparison March 29, 2025 INDICATION: Vomiting weakness chest pain today FINDINGS: Mild opacity at the right base laterally which may be artifactual Normal heart size Left lung clear IMPRESSION: Recommend lateral chest view follow-up to exclude early pneumonia right base
--- NOTE | 2025-05-25 14:48 | EKG_ITS ---
[facility] Test Date: 2025-05-25 Pat Name: LANDRY WILKES Department: Room: - Gender: Female Building Energy Consultant: : 1995 Requested By: Gentry Colon Order Number: [id number] Reading MD: Gentry Colon Measurements Intervals [place] Rate: 107 P: 89 OK: 140 QRS: 80 QRSD: 82 T: 64 QT: 321 QTc: 428 Interpretive Statements SINUS TACHYCARDIA ABNORMAL RHYTHM ECG Compared to ECG 03/29/2025 10:10:09 No significant changes /store/S0/[id number]
--- NOTE | 2025-05-25 14:52 | PD.EDADULT ---
ED General RME/HPI General Chief complaint: Nausea/Vomiting/Diarrhea Stated complaint: NAUSEA/VOMITING Time Seen by Provider: 05/25/25 14:46 Arrival date/time: 05/25/25 14:30 RME / HPI RME / HPI narrative: 29-year-old female patient with significant history of diabetes mellitus, on insulin and smoking marijuana currently, came in for evaluation regarding nausea and vomiting. Patient woke up this morning with nausea and vomiting, cannot take anything down, severity moderate. Patient denies any fever denies any abdominal pain but complain of generalized body weakness. Patient denies any diarrhea or constipation denies any other complaints no medications taken prior travel. Related Data Previous Rx's ?Medication ?Instructions ?Recorded lancets-blood glucose test #1 ea 09/23/23 strips-pen needles with gauze kit blood sugar diagnostic (Blood #50 ea 10/18/24 Glucose Test strips) blood-glucose meter (Blood Glucose #1 ea 10/18/24 Monitoring kit) glucagon 1 mg/0.2 mL subcutaneous 1 mg (0.2 mL) subcut Q20M PRN 10/18/24 solution (Gvoke) hypoglycemia #0.2 mL insulin syringe-needle U-100 1 mL #100 ea 10/18/24 29 gauge x 1/2 (Ultra-Thin II Insulin Syringe) metoclopramide HCl 10 mg tablet 10 mg PO Q6H PRN nausea and 10/18/24 (Reglan) vomiting #60 tabs pantoprazole 40 mg tablet,delayed 40 mg PO QDAY #14 tabs 10/18/24 release insulin degludec 100 unit/mL (3 20 unit (0.2 mL) subcut HS #15 mL 04/01/25 mL) subcutaneous pen (Tresiba FlexTouch U-100 insulin) famotidine 40 mg tablet (Pepcid) 40 mg PO BID #14 tabs 05/25/25 metoclopramide HCl 10 mg tablet 10 mg PO Q6H PRN nausea and 05/25/25 (Reglan) vomiting #30 tabs Allergies Allergy/AdvReac Type Severity Reaction Status Date / Time No Known Allergies Allergy Verified 10/15/24 17:30 Review of Systems Review of Systems Narrative Review of Systems: Review of system reviewed and within normal limits except mentioned in HPI ED Exam Narrative Physical exam: VITAL SIGNS: Reviewed. GENERAL APPEARANCE: Alert and interactive, follows commands, no acute distress, HEAD AND FACE: Non-traumatic. ENT: PERRL, pink conjunctivitis, eyelid no trauma, Mucous membrane dry NECK: Supple, nontender, no nuchal rigidity. CHEST: No tenderness, no crepitus, no paradoxical movement, no retractions. LUNGS: Clear, well ventilated, symmetric, no rales, no wheezing, no ronchi, no stridor, good breath sounds bilaterally. HEART: Regular rate, regular rhythm, no murmur, no gallops. ABDOMEN: Soft, positive bowel sounds, nondistended, no guarding, nontender, no rebound, no masses, RECTAL: Deferred. GENITAL: Deferred. NEUROLOGICAL: Gross motor function intact sensory function intact, Appropriate for age. MUSCULOSKELETAL: low back nontender, full range of motion. EXTREMITIES: Nontender, full range of motion. SKIN: Color pink, dry, no rash, no lacerations, no abrasions, no contusions. LYMPHATICS: Deferred. Course Quality Measures none Orders Category Date Time Status EKG (ED ONLY) *Do not use* NOW Care 05/25/25 14:49 Completed EKG (ED Only) Stat Exams 05/25/25 14:48 Draft XR chest 1V Stat Exams 05/25/25 14:48 Completed Acetone [Beta Hydroxybutyrate] Stat Lab 05/25/25 16:17 Completed CBC Stat Lab 05/25/25 16:17 Completed Comprehensive Metabolic Panel Stat Lab 05/25/25 16:17 Completed HCG Qualitative,Urine Stat Lab 05/25/25 23:59 Ordered Magnesium Stat Lab 05/25/25 16:17 Completed Partial Thromboplastin Time Stat Lab 05/25/25 17:58 Completed Prothrombin Time with INR Stat Lab 05/25/25 17:58 Completed Urinalysis, C/S if Indicated Stat Lab 05/25/25 23:59 Ordered Famotidine Inj [Pepcid Inj] Med 05/25/25 14:48 Discontinued 20 mg IVP X1 ONE Metoclopramide Inj [Reglan Inj] Med 05/25/25 14:48 Discontinued 10 mg IVP X1 ONE Nitroglycerin [Nitrostat 1/150] Med 05/25/25 14:48 Active 0.4 mg SL Q5MIN PRN Ringers Lactated 1000 ml [Lactated Ringers] 1,000 ml Med 05/25/25 14:49 Discontinued IV 999 mls/hr Ringers Lactated 1000 ml [Lactated Ringers] 1,000 ml Med 05/25/25 14:49 Discontinued IV 999 mls/hr Ringers Lactated 1000 ml [Lactated Ringers] 1,000 ml Med 05/25/25 20:28 Discontinued IV 999 mls/hr Vital Signs Vital signs: Vital Signs Temperature 98.9 F 05/25/25 14:35 Pulse Rate 108 H 05/25/25 14:35 Respiratory Rate 18 05/25/25 14:35 Blood Pressure 117/74 05/25/25 14:35 Pulse Oximetry (%) 95 05/25/25 14:35 Oxygen Delivery Method Room Air 05/25/25 14:35 Discharge Plan Plan Patient Disposition: HOME (Self Care) Discharge Disposition comment: Stable Prescriptions/Referrals Prescriptions/Med Rec: New metoclopramide HCl [Reglan] 10 mg tablet 10 mg PO Q6H PRN (Reason: nausea and vomiting) Qty: 30 0RF famotidine [Pepcid] 40 mg tablet 40 mg PO BID Qty: 14 0RF No Action (DME) lancet-gluc [id number] Kit See Rx Instructions .Route Qty: 1 1RF Rx Instructions: As directed insulin degludec [Tresiba FlexTouch U-100] 100 unit/mL (3 mL) insulin pen 20 unit subcut HS Qty: 15 4RF (DME) blood-glucose meter [Blood Glucose Monitoring] Kit See Rx Instructions .Route Qty: 1 0RF Rx Instructions: As directed (DME) Blood Glucose Test Strip See Rx Instructions .Route Qty: 50 0RF Rx Instructions: As directed (DME) insulin syringe-needle U-100 [Ultra-Thin II Insulin Syringe] 1 mL 29 gauge x 1/2 syringe See Rx Instructions .Route Qty: 100 0RF Rx Instructions: As directed Gvoke 1 mg/0.2 mL solution 1 mg subcut Q20M PRN (Reason: hypoglycemia) Qty: 0.2 0RF Rx Instructions: until target blood sugar attained pantoprazole 40 mg tablet,delayed release (DR/EC) 40 mg PO QDAY Qty: 14 0RF metoclopramide HCl [Reglan] 10 mg tablet 10 mg PO Q6H PRN (Reason: nausea and vomiting) Qty: 60 0RF Referrals: No Primary/Family,Physician [Primary Care Provider] - In 1 week Problem List Clinical Impression: Cannabinoid hyperemesis syndrome Patient/Caregiver Discharge Instructions Discharge Activity: activity as tolerated Education Materials: ED Vomiting (Adult) Additional Instructions: Thank you for the opportunity for serving you today. You are stable for discharged . You are advised to: Follow-up with your PCP in 1 to 2 days Return to ED for worsening of symptoms Increase oral fluids Take medication as prescribed Please stop abusing marijuana which could be the reason for your vomiting Print Language: Latvian Stand Alone Forms: [employer] Award Info., Patient Portal Info Letter PA/JOÃO Supervising Physician DEAN/JOÃO Supervising Physician: MD Juan [facility] Narrative MDM hospital course: 29-year-old female patient with significant history of diabetes mellitus, on insulin and smoking marijuana currently, came in for evaluation regarding nausea and vomiting. Patient woke up this morning with nausea and vomiting, cannot take anything down, severity moderate. Patient denies any fever denies any abdominal pain but complain of generalized body weakness. Patient denies any diarrhea or constipation denies any other complaints no medications taken prior travel. Patient laboratory workup is significant for mild hyperglycemia of 179. No sign of diabetic ketoacidosis. There is of the labs unremarkable. Patient is refusing to give a urine sample. Patient received 3 L of IV fluids, Pepcid, Reglan, with significant improvement of symptoms no vomiting noted in the ED. Patient is tolerating p.o. fluids. Patient was advised to stop smoking marijuana. Medication Administration(s) Medication Administration History Nitroglycerin (Nitroglycerin 0.4 Mg Subl Btl #25) 0.4 mg SL Q5MIN PRN PRN Reason: CHEST PAIN Stop: 06/24/25 14:47 Discontinued Medications Famotidine (Famotidine Inj 10 Mg/Ml Vial 2 Ml) 20 mg IVP X1 ONE Stop: 05/25/25 14:49 Last Admin: 05/25/25 16:10 Dose: 20 mg Documented By: ALONDRA Lactated Ringer's (Lactated Ringers) 1,000 mls @ 999 mls/hr IV .Q1H1M ONE Stop: 05/25/25 15:49 Last Infusion: 05/25/25 18:32 Dose: Infused Documented By: Admin: 05/25/25 16:12 Dose: 999 mls/hr Documented By: ALONDRA Lactated Ringer's (Lactated Ringers) 1,000 mls @ 999 mls/hr IV .Q1H1M ONE Stop: 05/25/25 15:49 Last Infusion: 05/25/25 18:32 Dose: Infused Documented By: Admin: 05/25/25 16:12 Dose: 999 mls/hr Documented By: ALONDRA Lactated Ringer's (Lactated Ringers) 1,000 mls @ 999 mls/hr IV .Q1H1M ONE Stop: 05/25/25 21:28 Last Admin: 05/25/25 20:41 Dose: 999 mls/hr Documented By: ANDRE Metoclopramide HCl (Metoclopramide Inj 5 Mg/Ml Vial 2 Ml) 10 mg IVP X1 ONE; Protocol Stop: 05/25/25 14:49 Last Admin: 05/25/25 16:12 Dose: 10 mg Documented By: ALONDRA
[2025-05-25] MEDS: FAMOTIDINE INJ 10 MG/ML VIAL 2 ML 20 MG IVP (16:10)
[2025-05-25] MEDS: RINGERS LACTATED 1000 ML 1,000 ML 999 ML IV ×3 (16:12→20:41)
[2025-05-25] MEDS: METOCLOPRAMIDE INJ 5 MG/ML VIAL 2 ML 10 MG IVP (16:12)
[2025-05-25 16:42] LABS: Beta Hydroxybutyrate 1.3 mmol/L (<0.6)
[2025-05-25 16:48] LABS: Basophils # (Auto) 0.1 Thou/mm3 (0.0-0.2); Basophils % (Auto) 0 % (0-2.5); Eosinophils # (Auto) 0.0 Thou/mm3 (0.0-0.5); Eosinophils % (Auto) 0 % (0-10); Hematocrit 41.5 % (36.0-46.0); Hemoglobin 13.8 g/dL (12.0-16.0); Immature Granulocytes Auto 0.16 Thou/mm3 (0.00-0.00); Lymphocytes # (Auto) 2.5 Thou/mm3 (1.0-4.8); Lymphocytes % (Auto) 10 % (10-50); Mean Corpuscular HGB Conc 33.3 g/dl (31.0-37.0); Mean Corpuscular Hemoglobin 27.3 pg (25.0-35.0); Mean Corpuscular Volume 82 fL (80-100); Monocytes # (Auto) 1.3 Thou/mm3 (0.0-0.8); Monocytes % (Auto) 5 % (0-12); Neutrophils # (Auto) 20.9 Thou/mm3 (1.8-7.7); Neutrophils % (Auto) 84 % (37-80); Nucleated Red Blood Cell # 0.00 Thou/mm3 (0.00-0.00); Nucleated Red Blood Cell % 0 /100 WBC (0); Platelet Count 232 Thou/mm3 (140-440); RDW Standard Deviation 40.5 fL (36.4-46.3); Red Blood Count 5.06 Miln/mm3 (4.00-5.20); White Blood Count 24.9 Thou/mm3 (3.6-11.0)
[2025-05-25 16:57] LABS: Alanine Aminotransferase 21 U/L (10-49); Albumin, Serum 5.0 gm/dL (3.5-5.0); Albumin/Globulin Ratio 1.8 (1.2-2.2); Alkaline Phosphatase 81 U/L (46-116); Anion Gap 13 (7-16); Aspartate Amino Transferase 22 U/L (0-34); BUN/Creatinine Ratio 13 Ratio (12-20); Bilirubin,Total 0.7 mg/dL (0.3-1.2); Blood Urea Nitrogen 13 mg/dL (9-23); Calcium 10.2 mg/dL (8.3-10.6); Calcium (Corrected) 10.2 mg/dL (8.5-10.1); Carbon Dioxide 22.1 mMol/L (20.0-31.0); Chloride 103 mMol/L (98-107); Creatinine (Component) 1.0 mg/dL (0.6-1.3); Estimated Creatinine Clearance 78.4 mL/min (>60); Globulin 2.8 gm/dL (2.3-3.5); Glucose 179 mg/dL (74-106); Magnesium 2.1 mg/dL (1.6-2.6); Osmolality,Calculated 279 (275-295); Potassium 4.0 mMol/L (3.4-5.1); Sodium 138 mMol/L (136-145); Total Protein 7.8 gm/dL (5.7-8.2); eGFR > 60 See Note
[2025-05-25 16:58] VITALS: BP 121/80; PULSE 94; RESP 17; O2SAT 100
[2025-05-25 17:30] VITALS: BP 116/77; PULSE 91; RESP 16; TEMP 37.2; O2SAT 100
[2025-05-25 19:09] LABS: INR 1.1 (0.9-1.3); Partial Thromboplastin Time 23.9 Seconds (22.0-36.0); Prothrombin Time 11.8 Seconds (9.0-12.2)
[2025-05-25 19:33] VITALS: BP 99/59; PULSE 91; RESP 21; TEMP 37.4; O2SAT 96
[2025-05-25 22:05] VITALS: BP 110/71; PULSE 97; RESP 19; O2SAT 98
--- NOTE | 2025-05-25 22:08 | PC.NURSE ---
bs checked prior to patient leaving faciltiy bs 306. patient instructed to take medications as prescribed and to stop smoking marijuana. patient also instructed to follow up with her pcp in 1-2 days or come back is she worsens. Patient verabized understanding.
== END 2025-05-25 22:06 | disposition home or self-care (01) ==
PROVIDERS: Nurse Practitioner Family; Emergency Provider Family Medicine
DX: R11.2 Nausea with vomiting, unspecified (principal); F12.90 Cannabis use, unspecified, uncomplicated; E11.9 Type 2 diabetes mellitus without complications; R07.9 Chest pain, unspecified; R94.31 Abnormal electrocardiogram [ECG] [EKG]
CPT/HCPCS: 36415; 71045; 80053; 81001; 81025; 82010; 83735; 85025; 85610; 85730; 93005; 96361; 96374; 96375; 99283; J2765; J3490; J7120